=== PATIENT | female | born 1965 | race Caucasian/White ===

== ENCOUNTER 2017-03-20 20:57 | Inpatient (IN) | payer OTHER ==
[~2017-03-20] VITALS: Ht 157.5 cm; Wt 64.0 kg
[~2017-03-20 20:57] MED LIST: LANTUS SUBQ; LYR50 PO
--- NOTE | 2017-03-20 21:00 | NUR ---
PT MELANIE BLS. TAKEN TO BED 7
[2017-03-20 21:02] VITALS: BP 155/88
[2017-03-20] MEDS ORDERED: NACL 0.9% 1,000 ML IV SCH (21:11)
[2017-03-20] MEDS ORDERED: MORPHINE SULFATE 4 MG/ML SYR IVP ONE (21:15)
[2017-03-20] MEDS ORDERED: METOCLOPRAMIDE 10 MG/2 ML INJ VIAL IVP ONE (21:15)
--- NOTE | 2017-03-20 21:16 | NUR ---
PT IS 51/F BIBA C/O N/V x4 DAYS. PAIN 9/10 EPIGASTRIC AREA NON-RADIATING. PT STATES MED HX OF DM, FIRBOMYLAGIA AND NEUROPATHY. DENIES D; SKIN IS PINK/WARM/DRY; AAOX4 WITH EVEN AND STEADY GAIT; LUNGS CLEAR BL; HR EVEN AND REGULAR; PT DENIES ANY FEVER, CP, SOB, OR COUGH AT THIS TIME; VSS; PATIENT POSITIONED FOR COMFORT; HOB ELEVATED; BEDRAILS UP X2; BED DOWN. ER MD MADE AWARE OF PT STATUS.
[2017-03-20 22:01] LABS: ANION GAP 19.1 (8-16); CALCIUM 8.5 mg/dL (8.5-10.1); CARBON DIOXIDE 20.9 mmol/L (21-32); CREATININE 1.1 mg/dL (0.6-1.3)
[2017-03-20 22:07] LABS: ALBUMIN 2.7 g/dL (3.4-5.0); TOTAL BILIRUBIN 0.4 mg/dL (0.0-1.0); TOTAL PROTEIN, SERUM 7.3 g/dL (6.4-8.2)
[2017-03-20 22:15] LABS: BASOPHILS # (AUTO) 0.1 K/uL (0.00-0.22); BASOPHILS % (AUTO) 0.8 % (0.0-2.0); CREATINE KINASE MB 0.9 ng/mL (0-3.6); EOSINOPHILS # (AUTO) 0.2 K/uL (0-0.4); HEMATOCRIT 48.2 % (36-48); HEMOGLOBIN 14.7 g/dL (12.0-16.0); LYMPHOCYTES # (AUTO) 1.4 K/uL (2.5-16.5); LYMPHOCYTES % (AUTO) 11.8 % (20.5-51.1); MEAN CORPUSCULAR HEMOGLOBIN 24 pg (27-31); MEAN CORPUSCULAR HGB CONC 31 g/dL (33-37); MEAN CORPUSCULAR VOLUME 77 fL (80-94); MONOCYTES # (AUTO) 0.6 K/uL (0.8-1.0); MONOCYTES % (AUTO) 5.5 % (1.7-9.3); NEUTROPHILS # (AUTO) 9.4 K/uL (1.8-7.7); NEUTROPHILS % (AUTO) 79.9 % (42.2-75.2); PLATELET COUNT (AUTO) 318 K/uL (140-450); RED BLOOD CELL COUNT(AUTO) 6.25 MIL/uL (4.20-5.40); RED CELL DISTRIBUTION WIDTH 13.4 % (11.6-13.7); WHITE BLOOD COUNT (AUTO) 11.7 K/uL (4.8-10.8)
[2017-03-20] MEDS ORDERED: INSU100S22 SUBQ (22:39)
[2017-03-20] MEDS ORDERED: HUM SUBQ (22:41)
[2017-03-20] MEDS ORDERED: DULO20EC PO (22:42)
[2017-03-20] MEDS ORDERED: ASPIRIN 81 MG TAB.CHEW PO ONE (22:55)
--- NOTE | 2017-03-20 23:09 | NUR ---
PT RESTING IN BED. NO SOB NOTED AT THIS TIME
--- NOTE | 2017-03-20 23:22 | NUR ---
PT TAKEN OFF UNIT TO CT VIA WHEELCHAIR
--- NOTE | 2017-03-20 23:33 | NUR ---
PT RETURN FROM CT
[2017-03-20] MEDS ORDERED: MORPHINE SULFATE 2 MG/ML SYR IVP PRN (23:40)
[2017-03-20] MEDS ORDERED: ACETAMINOPHEN 325 MG TAB PO PRN (23:40)
[2017-03-20] MEDS ORDERED: ONDANSETRON 4 MG/2 ML VIAL IVP PRN (23:40)
[2017-03-20 23:54] LABS: APPEARANCE,URINE HAZY (CLEAR); BLOOD, URINE 2+ (NEGATIVE); COLOR,URINE YELLOW (YELLOW); NITRITE, URINE NEGATIVE (NEGATIVE); PROTEIN,URINE 3+ (NEGATIVE); UGLUCOSE 3+ (NEGATIVE); UROBILINOGEN,URINE 0.2 EU/dL (0.2 - 1)
[2017-03-21 00:03] LABS: BILIRUBIN,URINE NEGATIVE (NEGATIVE)
[2017-03-21 00:04] LABS: LEUKOCYTE ESTERASE ,URINE TRACE (NEGATIVE)
[2017-03-21 00:06] LABS: WBC,URINE 60-80 /HPF (0-5)
[2017-03-21 00:07] LABS: BACTERIA,URINE 2+ /HPF (None Seen)
--- NOTE | 2017-03-21 00:20 | NUR ---
ADMITTED 51 YEAR OLD FEMALE FROM ER, PT ARRIVED TO UNIT VIA GURNEY. INITIAL ASSESSMENT COMPLETED. PT AAOX4. PT STABLE. PT VS STABLE. PT'S SKIN IS INTACT. PT HAS IV ON LEFT AC G 20; ASYMPTOMATIC, PATENT AND INTACT. PT AMBULATES. ORIENTED PT TO ROOM AND SURROUNDINGS AND USE OF CALL LIGHT. EXPLAINED PLAN OF CARE TO PT AND SHE VERBALIZES UNDERSTANDING. WILL CONTINUE TO MONITOR PT.
--- NOTE | 2017-03-21 00:25 | NUR ---
Patient will be admitted to care of DR CHAMBERS. Admited to TELE. Will go to room 108B. Belongings list completed. Report to RADHA AKHTAR.
--- NOTE | 2017-03-21 00:44 | NUR ---
PT COMPLAINING OF ABDOMEN PAIN06/18. VS STABLE, WILL MEDICATE ORDERED.
[2017-03-21] MEDS: NACL 0.9% 1,000 ML IV SCH ×3 (00:47→19:39)
[2017-03-21] MEDS: INSULIN LISPRO SLIDING SCALE 100 UNITS/ML VIAL SUBQ PRN ×3 (01:36→17:20)
--- NOTE | 2017-03-21 01:40 | NUR ---
PT'S BLOOD SUGAR IS 320. PT WAS CONCERNED THAT INSULIN WOULD INTERFERE WITH THE IV CONTRAST SHE HAD IN ER WITH CT. CALLED DR. ELZBIETA Gallegos AND STATED THAT IT IS OK TO GIVE INSULIN THAT PT NEEDS IT. PT AWARE, PT AGREES TO TAKE INSULIN. KEENA NG. WILL CONTINUE TO MONITOR PT.
--- NOTE | 2017-03-21 02:00 | NUR ---
PT HAS AN ORDER FOR SCDS; I ASKED REPAIRER FOR SCDS BUT HE STATED THAT THERE ARE NOT MORE SCDS AVAILABLE.
--- NOTE | 2017-03-21 03:36 | NUR ---
PT SLEEPING AT THIS TIME, NO SIGNS OF DISTRESS NOTED. WILL CONTINUE TO MONITOR PT.
[2017-03-21 04:00] VITALS: BP 132/84
--- NOTE | 2017-03-21 05:23 | NUR ---
RESTAURANT AREA MANAGER AT BEDSIDE DRAWING MORNING LABS. WILL CONTINUE TO MONITOR PT.
[2017-03-21 06:13] LABS: BASOPHILS # (AUTO) 0.1 K/uL (0.00-0.22); BASOPHILS % (AUTO) 0.8 % (0.0-2.0); EOSINOPHILS # (AUTO) 0.2 K/uL (0-0.4); EOSINOPHILS % (AUTO) 1.8 % (0.0-4.0); HEMATOCRIT 42.2 % (36-48); HEMOGLOBIN 13.7 g/dL (12.0-16.0); LYMPHOCYTES # (AUTO) 1.5 K/uL (2.5-16.5); LYMPHOCYTES % (AUTO) 14.3 % (20.5-51.1); MEAN CORPUSCULAR HEMOGLOBIN 25 pg (27-31); MEAN CORPUSCULAR HGB CONC 32 g/dL (33-37); MEAN CORPUSCULAR VOLUME 77 fL (80-94); MONOCYTES % (AUTO) 9.4 % (1.7-9.3); NEUTROPHILS # (AUTO) 7.6 K/uL (1.8-7.7); NEUTROPHILS % (AUTO) 73.7 % (42.2-75.2); PLATELET COUNT (AUTO) 250 K/uL (140-450); RED BLOOD CELL COUNT(AUTO) 5.48 MIL/uL (4.20-5.40); RED CELL DISTRIBUTION WIDTH 13.5 % (11.6-13.7); WHITE BLOOD COUNT (AUTO) 10.4 K/uL (4.8-10.8)
[2017-03-21] MEDS: BLOOD GLUCOSE MONITORING 1 DEV DEV FS SCH ×4 (06:19→17:32)
[2017-03-21 06:47] LABS: ALBUMIN 2.3 g/dL (3.4-5.0); CALCIUM 7.9 mg/dL (8.5-10.1); CARBON DIOXIDE 22.6 mmol/L (21-32); POTASSIUM 4.6 mmol/L (3.5-5.1); TOTAL BILIRUBIN 0.7 mg/dL (0.0-1.0); TOTAL PROTEIN, SERUM 6.2 g/dL (6.4-8.2)
[2017-03-21 06:51] LABS: CREATINE KINASE MB 0.8 ng/mL (0-3.6)
--- NOTE | 2017-03-21 07:21 | NUR ---
ENDORSED PLAN OF CARE TO DAY SHIFT NURSE. PT IN STABLE CONDITION.
--- NOTE | 2017-03-21 07:21 | NUR ---
RECEIVED REPORT FROM NIGHT NURSE. PT IS AAOX4, ON ROOM AIR, IV TO LEFT AC 20G INFUSING WELL. SKIN INTACT, PT STATES NO CHEST PAIN AT THIS TIME. INITIAL ASSESSMENT COMPLETED. REVIEWED PLAN OF CARE WITH PT, PT VERBALIZED UNDERSTANDING. ALL SAFETY PRECAUTION MET. CALL LIGHT WITHIN REACH. WILL CONTINUE TO MONITOR.
[2017-03-21 07:54] VITALS: BP 140/69
[2017-03-21] MEDS ORDERED: DULOXETINE HCL PO SCH (09:00)
[2017-03-21] MEDS ORDERED: PREGABALIN 50 MG CAP PO SCH (09:00)
[2017-03-21] MEDS: ASPIRIN 81 MG TAB.CHEW PO SCH (09:10)
[2017-03-21] MEDS: ENOXAPARIN 40 MG/0.4 ML SYR SUBQ SCH (09:13)
[2017-03-21] MEDS ORDERED: PREGABALIN 25 MG CAP PO SCH (09:16)
[2017-03-21] MEDS ORDERED: DULoxetine 30 MG CAPDR PO SCH (09:30)
--- NOTE | 2017-03-21 09:45 | NUR ---
CHECKED IN ON PT, ALL NEEDS MET. CALL LIGHT WITHIN REACH. WILL CONTINUE TO MONITOR.
[2017-03-21] MEDS ORDERED: ALUMINUM HYD/MAG/SIMETHICONE 30 ML UDC PO PRN (10:00)
[2017-03-21] MEDS ORDERED: ALUMINUM HYD/MAG/SIMETHICONE 30 ML UDC PO SCH (10:15)
[2017-03-21] MEDS: METOCLOPRAMIDE 10 MG TAB PO SCH ×2 (10:53→17:16)
[2017-03-21] MEDS: PREGABALIN 50 MG CAP PO SCH ×2 (12:30→17:17)
[2017-03-21] MEDS: metroNIDAZOLE 500 MG/NS PREMIX 100 ML IV SCH ×2 (12:30→20:43)
--- NOTE | 2017-03-21 12:33 | NUR ---
DUE MEDICATIONS GIVEN. INSULIN NOT GIVEN, PT CURRENTLY NPO FOR PROCEDURE. WILL CONTINUE YO MONITOR.
[2017-03-21 15:07] LABS: CREATINE KINASE MB 1.2 ng/mL (0-3.6)
--- NOTE | 2017-03-21 15:10 | NUR ---
CHECKED IN ON PT, PT CURRENTLY RESTING IN BED. ALL NEEDS MET. CALL LIGHT WITHIN REACH. WILL CONTINUE TO MONITOR.
[2017-03-21 16:00] VITALS: BP 143/80
--- NOTE | 2017-03-21 17:20 | NUR ---
DUE MEDICATIONS GIVEN. PT CURRENTLY SITTING ON CHAIR AT BEDSIDE. NO S/S OF DISTRESS OR DISCOMFORT NOTED. ALL NEEDS MET. CALL LIGHT WITHIN REACH. WILL CONTINUE TO MONITOR.
--- NOTE | 2017-03-21 19:05 | NUR ---
RECEIVED REPORT FROM RADHA DIANA AT BEDSIDE. INITIAL ASSESSMENT COMPLETED. PT AAOX4. PT STABLE. PT VS STABLE. PT'S SKIN IS INTACT. PT HAS IV ON RIGHT AC G 20; ASYMPTOMATIC, PATENT AND INTACT. PT AMBULATES. ORIENTED PT TO ROOM AND SURROUNDINGS AND USE OF CALL LIGHT. EXPLAINED PLAN OF CARE TO PT AND SHE VERBALIZES UNDERSTANDING. WILL CONTINUE TO MONITOR PT.
--- NOTE | 2017-03-21 19:15 | NUR ---
ENDORSED PLAN OF CARE TO NIGHT NURSE, PT IN STABLE CONDITION
--- NOTE | 2017-03-21 20:47 | NUR ---
PT TOLERATED 2100 MEDS WELL, CALL LIGHT WITHIN REACH.
[2017-03-21] MEDS ORDERED: INSULIN DETEMIR 100 UNITS/ML 10 ML VIAL SUBQ SCH (21:00)
--- NOTE | 2017-03-21 22:25 | NUR ---
PT AMBULATED TO THE RESTROOM. PT BACK IN BED NOW. PT IS STABLE, CALL LIGHT WITHIN REACH.
[2017-03-22] VITALS: BP 133/92
[2017-03-22] MEDS: INSULIN LISPRO SLIDING SCALE 100 UNITS/ML VIAL SUBQ PRN ×2 (00:15→11:18)
[2017-03-22] MEDS: BLOOD GLUCOSE MONITORING 1 DEV DEV FS SCH ×3 (00:15→11:33)
--- NOTE | 2017-03-22 00:33 | NUR ---
CHECKED ON PT. VS STABLE, WILL CONTINUE TO MONITOR PT.
[2017-03-22] MEDS: NACL 0.9% 1,000 ML IV SCH (02:03)
--- NOTE | 2017-03-22 02:46 | NUR ---
ROUNDS MADE. PT SLEEPING. NO SIGNS OF DISTRESS OR DISCOMFORT NOTED. WILL CONTINUE TO MONITOR PT.
[2017-03-22] MEDS: metroNIDAZOLE 500 MG/NS PREMIX 100 ML IV SCH ×2 (04:30→12:45)
--- NOTE | 2017-03-22 04:40 | NUR ---
0500 FLAGYL INFUSING AT THIS TIME. PT STABLE, WILL CONTINUE TO MONITOR PT.
[2017-03-22] MEDS: METOCLOPRAMIDE 10 MG TAB PO SCH ×2 (06:26→11:18)
[2017-03-22 06:32] LABS: BASOPHILS # (AUTO) 0.1 K/uL (0.00-0.22); BASOPHILS % (AUTO) 0.7 % (0.0-2.0); EOSINOPHILS # (AUTO) 0.3 K/uL (0-0.4); EOSINOPHILS % (AUTO) 3.1 % (0.0-4.0); HEMATOCRIT 38.8 % (36-48); HEMOGLOBIN 12.6 g/dL (12.0-16.0); LYMPHOCYTES # (AUTO) 2.4 K/uL (2.5-16.5); LYMPHOCYTES % (AUTO) 25.5 % (20.5-51.1); MEAN CORPUSCULAR HEMOGLOBIN 25 pg (27-31); MEAN CORPUSCULAR HGB CONC 33 g/dL (33-37); MEAN CORPUSCULAR VOLUME 76 fL (80-94); MONOCYTES % (AUTO) 10.8 % (1.7-9.3); NEUTROPHILS # (AUTO) 5.8 K/uL (1.8-7.7); NEUTROPHILS % (AUTO) 59.9 % (42.2-75.2); PLATELET COUNT (AUTO) 254 K/uL (140-450); RED BLOOD CELL COUNT(AUTO) 5.11 MIL/uL (4.20-5.40); RED CELL DISTRIBUTION WIDTH 13.7 % (11.6-13.7); WHITE BLOOD COUNT (AUTO) 9.6 K/uL (4.8-10.8)
--- NOTE | 2017-03-22 06:58 | NUR ---
PATIENT HAS BEEN SCREENED AND CATEGORIZED HIGH NUTRITION RISK. PATIENT WILL BE SEEN WITHIN 1-2 DAYS OF ADMISSION. 03/21/17-03/22/17 NATANAEL SADLER MS, RDN
--- NOTE | 2017-03-22 07:15 | NUR ---
ENDORSED PLAN OF CARE TO DAY SHIFT NURSE. PT REMAINS IN STABLE CONDITION.
--- NOTE | 2017-03-22 07:16 | NUR ---
RECEIVED REPORT FROM QUALITY TECHNICIAN NURSE AT BEDSIDE. INTRODUCED MYSELF AND UPDATED THE BOARD. EXPLAIN TO PT PLAN OF CARE AND WILL UPDATE PT. PT IS ALERT AWAKE AND ORIENTED. PT DENIES CHEST PAIN, STATES SHE IS FEELING MUCH BETTER. PT HAS IV ON R AC 20G RUNNING NS 100ML/HR. CALL LIGHT WITHIN REACH. WILL CONTINUE TO MONITOR.
[2017-03-22 08:00] VITALS: BP 145/85
[2017-03-22 08:24] LABS: ALBUMIN 2.2 g/dL (3.4-5.0); ANION GAP 13.7 (8-16); CALCIUM 8.1 mg/dL (8.5-10.1); CARBON DIOXIDE 23.1 mmol/L (21-32); CREATININE 0.9 mg/dL (0.6-1.3); POTASSIUM 3.8 mmol/L (3.5-5.1); TOTAL BILIRUBIN 0.2 mg/dL (0.0-1.0)
[2017-03-22] MEDS: ENOXAPARIN 40 MG/0.4 ML SYR SUBQ SCH (08:59)
[2017-03-22] MEDS: ASPIRIN 81 MG TAB.CHEW PO SCH (08:59)
[2017-03-22] MEDS: PREGABALIN 50 MG CAP PO SCH ×2 (09:00→12:45)
[2017-03-22] MEDS ORDERED: PANTOPRAZOLE 40 MG INJ VIAL IVP SCH (09:00)
[2017-03-22] MEDS ORDERED: DULoxetine 30 MG CAPDR PO SCH (09:00)
--- NOTE | 2017-03-22 09:05 | NUR ---
MORNING MED ADMINISTERED. PT TOLERATED WELL. NO COMPLAINTS AT THIS TIME. WILL CONTINUE TO MONITOR.
--- NOTE | 2017-03-22 10:20 | NUR ---
PT IS RESTING COMFORTABLY IN BED. NO DISTRESS OR COMPLAINTS AT THIS TIME. WILL CONTINUE TO MONITOR.
--- NOTE | 2017-03-22 10:23 | NUR ---
03/25/17 RD INITIAL ASSESSMENT COMPLETED PLEASE REFER TO NUTRITION ASSESSMENT UNDER CARE ACTIVITY FOR ESTIMATED NUTRITIONAL NEEDS. RD RECOMMENDATIONS: CONTINUE ON CURRENT DIET TOLERATED. 2. RDN PROVIDED DM DIET EDUCATION WITH HANDOUT. PT ACCEPTS. 3. RD WILL F/U 5-7 DAYS; LOW RISK. NATANAEL SADLER MS, RDN
--- NOTE | 2017-03-22 12:30 | NUR ---
ADMINISTERED 1300 MEDICATIONS. PT TOLERATED WELL. INFORMED PT DR WILL BE IN SOON TO CHECK ON HER.
[2017-03-22] MEDS ORDERED: LEVO500T22 PO (13:50)
[2017-03-22] MEDS ORDERED: HUM SUBQ (13:50)
[2017-03-22] MEDS ORDERED: METO-485 PO (13:50)
[2017-03-22 13:57] VITALS: BP 145/85
--- NOTE | 2017-03-22 14:20 | NUR ---
WENT OVER PAPERWORK WITH PT AT BEDSIDE. PT VERBALIZED UNDERSTANDING AND SIGNED APPROPRIATE PAPERWORK. PRESCRIPTIONS GIVEN. ALL ID BAND CUT OFF. IV REMOVED, CANNULA INTACT, PT TOLERATED WELL. WILL ACCOMPANY PT OUT WHEN PT IS READY.
--- NOTE | 2017-03-22 14:30 | NUR ---
PT TOOK ALL BELONGINGS AND WAS D/C'ED. NURSE ACCOMPANIED PT TO THE CAR. PT IS IN STABLE CONDITION.
--- NOTE | 2017-03-23 08:08 | NUR ---
RETRO ER REPORT H&P AND DISCHARGE SUMMARY FAXED TO [facility] [phone] PHONE DIVINE [phone] APRIL [phone]
[2017-03-24 06:15] LABS: AFP (TUMOR MARKER) 2.1 ng/mL (0.0-8.3); HEPATITIS A ANTIBODY IGM Negative (Negative); HEPATITIS A ANTIBODY TOTAL Negative (Negative); HEPATITIS B CORE AB TOTAL Negative (Negative); HEPATITIS B CORE, IGM Negative (Negative); HEPATITIS B SURFACE AB Non Reactive (.); HEPATITIS B SURFACE ANTIGEN Negative (Negative); HEPATITIS C VIRUS ANTIBODY <0.1 s/co ratio (0.0-0.9)
== END 2017-03-22 14:30 | disposition home or self-care (01) | DRG 463 ==
LOC: MED 20:57 → MTU 23:46
PROVIDERS: ADMIT Hospitalist; ATTEND Hospitalist
DX: N39.0 Urinary tract infection, site not specified (principal); K56.69 Other intestinal obstruction; E11.42 Type 2 diabetes mellitus with diabetic polyneuropathy; E11.65 Type 2 diabetes mellitus with hyperglycemia; K76.0 Fatty (change of) liver, not elsewhere classified; B96.89 Other specified bacterial agents as the cause of diseases classified elsewhere; E44.1 Mild protein-calorie malnutrition; I10 Essential (primary) hypertension; F33.9 Major depressive disorder, recurrent, unspecified; M79.7 Fibromyalgia; K59.09 Other constipation; F17.210 Nicotine dependence, cigarettes, uncomplicated; Z90.49 Acquired absence of other specified parts of digestive tract; Z79.899 Other long term (current) drug therapy; Z79.4 Long term (current) use of insulin; Z68.25 Body mass index [BMI] 25.0-25.9, adult
CPT/HCPCS: 36415; 71010; 74250; 76700; 80053; 81001; 82105; 82550; 82553; 82948; 83036; 83690; 84484; 84703; 85025; 86704; 86706; 86708; 86709; 86803; 87081; 87086; 87186; 87340; 93005; 96361; 96374; 96375; 99285; C9113; J1650; J1815; J2270; J2765; J3490; J7030; J7060; J8597; Q0092; Q9967

== ENCOUNTER 2017-04-17 16:22 | Emergency (ER) | payer OTHER ==
[~2017-04-17] VITALS: Ht 160 cm; Wt 64.9 kg
[~2017-04-17 16:22] MED LIST changes: +DULO20EC PO; +HUM SUBQ; +INSU100S22 SUBQ; -LANTUS SUBQ; +LEVO500T22 PO; +METO-485 PO
[2017-04-17 16:26] VITALS: BP 159/87
--- NOTE | 2017-04-17 18:33 | NUR ---
PATIENT TO BED 3.
--- NOTE | 2017-04-17 18:34 | NUR ---
PATIENT PRESENTS TO ED WITH RIGHT WRIST PAIN X 1 MONTH----SWELLING, HX----FIBROMYALGIA, NEUROPATHY, DM, HTN RX---HUMALOG, METFORMIN, BENAZEPRIL, ZYMBALTA . PT AAO, DENIES N/V/D; SKIN IS PINK/WARM/DRY; AAOX4 WITH EVEN AND STEADY GAIT; LUNGS CLEAR BL; HR EVEN AND REGULAR; PT DENIES ANY FEVER, CP, SOB, OR COUGH AT THIS TIME; PATIENT STATES PAIN OF 7/10 AT THIS TIME; PATIENT POSITIONED FOR COMFORT; HOB ELEVATED; BEDRAILS UP X2; BED DOWN. ER MD MADE AWARE OF PT STATUS.
--- NOTE | 2017-04-17 18:43 | NUR ---
PT AAO,WILL INFORM DR. PIERCE RESULT OF HIGH BLOOD SUGAR
--- NOTE | 2017-04-17 18:46 | NUR ---
PER PT SHE DOESNT WANT TO RECEIVE ANYTHING FOR HER BS CLAIMED I WILL TAKE CARE OF THAT WHEN I GO HOME.
--- NOTE | 2017-04-17 19:06 | NUR ---
DR. TROTTER AT BEDSIDE
--- NOTE | 2017-04-17 19:13 | NUR ---
Pt report given to PIN. Transfer of care at this time.
--- NOTE | 2017-04-17 19:17 | NUR ---
GOT REPORT FROM RADHA DAVALOS. PT. RESTING IN BED, NO S/SX OF DISTRESS.
[2017-04-17] MEDS ORDERED: NACL 0.9% 1,000 ML IV ONE (19:20)
[2017-04-17] MEDS ORDERED: KETOROLAC 30 MG/ML VIAL IVP ONE (19:35)
[2017-04-17] MEDS ORDERED: INSULIN HUMAN REGULAR 100 UNITS/ML 10 ML VIAL IVP ONE (19:50)
[2017-04-17 20:15] LABS: CALCIUM 8.8 mg/dL (8.5-10.1); CARBON DIOXIDE 28.3 mmol/L (21-32); POTASSIUM 4.3 mmol/L (3.5-5.1)
--- NOTE | 2017-04-17 20:30 | NUR ---
Patient discharged with v/s stable. Written and verbal after care instructions given and explained. Patient alert, oriented and verbalized understanding of instructions. Ambulatory with steady gait. All questions addressed prior to discharge. ID band removed. Patient advised to follow up with PMD. Rx of NAPROSYN 500 MG, NORCO 5/325 MG given. Patient educated on indication of medication including possible reaction and side effects. Opportunity to ask questions provided and answered. LT. WRIST SPLINT APPLIED.
[2017-04-17 20:33] VITALS: BP 125/79
== END 2017-04-17 20:30 | disposition home or self-care (01) ==
LOC: MED 16:22
DX: M77.9 Enthesopathy, unspecified (principal); E11.65 Type 2 diabetes mellitus with hyperglycemia; J45.909 Unspecified asthma, uncomplicated; M79.7 Fibromyalgia; Z90.49 Acquired absence of other specified parts of digestive tract
CPT/HCPCS: 29125; 36415; 73110; 80048; 81002; 81025; 82948; 96361; 96372; 96374; 99285; J1815; J1885; J7030

== ENCOUNTER 2018-04-29 21:48 | Emergency (ER) | payer MEDICAID, OTHER ==
[~2018-04-29] VITALS: Ht 157.5 cm; Wt 74.8 kg
[~2018-04-29 21:48] MED LIST changes: +LEVO500T2 PO; -LEVO500T22 PO
[2018-04-29 21:56] VITALS: BP 165/95
[2018-04-29 22:00] VITALS: BP 165/95
--- NOTE | 2018-04-29 22:00 | NUR ---
TO LOBBY A/W BED, AMB, VSS , SAO2 100% ERMD NOTED
--- NOTE | 2018-04-30 00:01 | NUR ---
PATIENT LEFT WITHOUT BEING SEEN BY DR. OTOOLE. NO FURTHER CARE PROVIDED FOR PATIENT.
== END 2018-04-30 00:01 | disposition left against medical advice (07) ==
LOC: MED 21:48
DX: R06.02 Shortness of breath (principal); Z53.21 Procedure and treatment not carried out due to patient leaving prior to being seen by health care provider

== ENCOUNTER 2019-01-21 23:37 | Inpatient (IN) | payer MEDICAID ==
[~2019-01-21] VITALS: Ht 157.5 cm; Wt 70.3 kg
[2019-01-21 23:50] VITALS: BP 182/80
--- NOTE | 2019-01-21 23:54 | NUR ---
[facility] V[facility]. PROVIDED PT WITH URINE CUP.
--- NOTE | 2019-01-22 00:41 | NUR ---
PT AMUBLATED TO ER BED 04
[2019-01-22 00:50] LABS: BASOPHILS # (AUTO) 0.1 K/uL (0.00-0.22); BASOPHILS % (AUTO) 0.8 % (0.0-2.0); EOSINOPHILS # (AUTO) 0.3 K/uL (0-0.4); EOSINOPHILS % (AUTO) 3.6 % (0.0-4.0); HEMATOCRIT 35.6 % (36-48); HEMOGLOBIN 11.9 g/dL (12.0-16.0); LYMPHOCYTES # (AUTO) 1.5 K/uL (2.5-16.5); LYMPHOCYTES % (AUTO) 17.9 % (20.5-51.1); MEAN CORPUSCULAR HEMOGLOBIN 27 pg (27-31); MEAN CORPUSCULAR HGB CONC 33 g/dL (33-37); MEAN CORPUSCULAR VOLUME 80.4 fL (80-94); MONOCYTES # (AUTO) 0.5 K/uL (0.8-1.0); MONOCYTES % (AUTO) 5.4 % (1.7-9.3); NEUTROPHILS % (AUTO) 72.3 % (42.2-75.2); PLATELET COUNT (AUTO) 263 K/uL (140-450); RED BLOOD CELL COUNT(AUTO) 4.43 MIL/uL (4.20-5.40); RED CELL DISTRIBUTION WIDTH 13.6 % (11.6-13.7); WHITE BLOOD COUNT (AUTO) 8.3 K/uL (4.8-10.8)
[2019-01-22 01:02] LABS: ANION GAP 10.2 (8-16); CARBON DIOXIDE 27.3 mmol/L (21-32); CREATININE 1.4 mg/dL (0.6-1.3); POTASSIUM 3.5 mmol/L (3.5-5.1)
--- NOTE | 2019-01-22 01:06 | NUR ---
ASSUMED CARE OF PT AT THIS TIME. 53/F PRESENTS TO ED, C/O SOB/DIFFICULTY BREATHING X1 MONTH, WORSENING X1 WEEK. REPORTS NONPRODUCTIVE COUGH, INSOMNIA, HEADACHE. PT DENIES CP OR FEVER. PT AOX4, GCS 15, SPO2 100%, RR 20 EVEN AND SLIGHTLY LABORED. LUNG SOUNDS CLEAR BL. HX CHF, HTN, DM, FIBROMYALGIA RX ALBUTEROL INHALER, LASIX, GABAPENTIN, BASGLAR PEN, SIMVASTATIN, VIT D, LOSARTAN, IBUPROFEN
[2019-01-22 01:07] LABS: TOTAL BILIRUBIN 0.4 mg/dL (0.0-1.0)
[2019-01-22] MEDS ORDERED: FUROSEMIDE 40 MG/4 ML VIAL IVP ONE ×2 (01:25→02:10)
[2019-01-22] MEDS ORDERED: HYDROcodone/APAP 7.5/325 MG 1 TAB PO PRN (01:40)
[2019-01-22] MEDS ORDERED: ACETAMINOPHEN 325 MG TAB PO PRN (01:40)
[2019-01-22] MEDS ORDERED: MORPHINE SULFATE 2 MG/ML SYR IVP PRN (01:40)
[2019-01-22] MEDS ORDERED: DOCUSATE SODIUM 100 MG GELCAP PO PRN (01:40)
[2019-01-22 02:06] LABS: APPEARANCE,URINE CLEAR (CLEAR); BILIRUBIN,URINE NEGATIVE (NEGATIVE); BLOOD, URINE 1+ (NEGATIVE); COLOR,URINE YELLOW (YELLOW); LEUKOCYTE ESTERASE ,URINE NEGATIVE (NEGATIVE); NITRITE, URINE NEGATIVE (NEGATIVE); PH,URINE 6.5 (5.0-9.0); UGLUCOSE 2+ (NEGATIVE)
[2019-01-22] MEDS ORDERED: PIPER/TAZO 3.375GM/D5W PREMIX 50 ML IV ONE (02:10)
[2019-01-22] MEDS ORDERED: SIMV20TA1 PO (02:15)
[2019-01-22] MEDS ORDERED: IBUP-2213 PO (02:15)
[2019-01-22] MEDS ORDERED: INSU100I7 SQ (02:15)
[2019-01-22] MEDS ORDERED: GABA300C PO (02:15)
[2019-01-22] MEDS ORDERED: FURO-570 PO (02:15)
[2019-01-22] MEDS ORDERED: VITD1000 PO (02:15)
[2019-01-22] MEDS ORDERED: LOSA25TA43 PO (02:15)
[2019-01-22 02:16] LABS: BARBITURATE, URINE NEG. ng/ml (NEG <=200); BENZODIAZEPINE, URINE NEG. ng/mL (NEG <=200); CANNABINOID, URINE NEG. ng/mL (NEG <=50); COCAINE, URINE NEG. ng/mL (NEG <=300); OPIATE, URINE NEG. ng/mL (NEG <=2000); PHENCYCLIDINE SCREEN,URINE NEG. ng/mL (NEG <=25)
[2019-01-22] MEDS: NACL 0.9% 1,000 ML IV SCH (02:20)
--- NOTE | 2019-01-22 02:20 | NUR ---
Patient will be admitted to care of DR. HALL. Admited to TELE. Will go to room 119B. Belongings list completed. Report to RADHA MONTANEZ.
[2019-01-22 02:21] LABS: PROTHROMBIN TIME 9.5 secs (10.8-13.4)
[2019-01-22] MEDS ORDERED: PIPERACILLIN/TAZOBACTAM 3.375 GM VIAL IV ONE (02:21)
[2019-01-22] MEDS ORDERED: DEXTROSE 50% 50 ML SYR IVP PRN (02:25)
[2019-01-22 02:31] LABS: CHOL/HDL RATIO 4.2 (1-4.5); MAGNESIUM 1.9 mg/dL (1.8-2.4); PHOSPHORUS 3.1 mg/dL (2.5-4.9); THYROID STIMULATING HORMONE 1.12 uIU/mL (0.34-3.74)
--- NOTE | 2019-01-22 02:35 | NUR ---
RECEIVED ENDORSEMENT FROM DIRECTOR UTILIZATION MANAGEMENT; PATIENT ABLE TO AMBULATE FROM GURNEY TO BED. PATIENT A/Ox4, ABLE TO MAKE NEEDS KNOWN. INTRODUCED SELF, UPDATED BOARD. CHIEF COMPLAINT OF SOB FOR 1 MONTH. DX - CONGESTIVE HEART FAILURE. NO SOB OR DISTRESS NOTED. SKIN IS INTACT. IV SITE ON RIGHT FOREARM, 20 GAUGE, INTACT AND PATENT. BED IN THE LOWEST POSITION, CALL LIGHT WITHIN REACH. INITIAL ASSESSMENT DONE. PLAN OF CARE REVIEWED. WILL CONTINUE TO MONITOR.
[2019-01-22] MEDS ORDERED: MELATONIN 3 MG TAB PO PRN (02:40)
[2019-01-22] MEDS: ALBUTEROL SULFATE/IPRATROPIU 3 ML SOL IH PRN ×2 (03:22→08:25)
--- NOTE | 2019-01-22 03:34 | NUR ---
RECEIVED PATIENT ON ROOM AIR, PULSE OX SAT 96%. PATIENT COMPLAINS OF FEELING SOB. PRN TX ADMINISTERED. TOLERATED WELL. NO ADVERSE SIDE EFFECTS. WILL CONTINUE TO MONITOR.
[2019-01-22 04:00] VITALS: BP 174/90
[2019-01-22] MEDS ORDERED: hydrALAZINE 20 MG/ML VIAL IVP SCH (04:00)
--- NOTE | 2019-01-22 04:00 | NUR ---
DUE MEDS GIVEN, TOLERATED WELL.
[2019-01-22] MEDS ORDERED: AZITHROMYCIN 500 MG in DEXTROSE 5% 250 ML IV SCH (04:30)
--- NOTE | 2019-01-22 04:30 | NUR ---
VITALS TAKEN, NO DISTRESS NOTED.
[2019-01-22] MEDS ORDERED: AZITHROMYCIN 500 MG INJ VIAL IV ONE (04:45)
--- NOTE | 2019-01-22 06:30 | NUR ---
BLOOD GLUCOSE CHECK DONE, NO DISTRESS NOTED.
[2019-01-22] MEDS: ALBUTEROL SULFATE/IPRATROPIU 3 ML SOL IH SCH ×3 (06:40→19:43)
[2019-01-22] MEDS: BLOOD GLUCOSE MONITORING 1 DEV DEV FS SCH ×4 (06:57→21:28)
--- NOTE | 2019-01-22 07:15 | NUR ---
ENDORSED PATIENT TO AM SHIFT RN; PATIENT IN STABLE CONDITION.
--- NOTE | 2019-01-22 07:40 | NUR ---
RECEIVED REPORT FROM ARMOR RECONNAISSANCE VEHICLE CREWMAN NURSE. PT SITTING IN BED TRYING TO GET TO RESTROOM. ARMOR RECONNAISSANCE VEHICLE CREWMAN NURSE ASSISTED HER TO BATHROOM. PT REQUESTING BREATHING TREATMENT. COMPLAINTS OF DIFFICULTY BREATHING. ARMOR RECONNAISSANCE VEHICLE CREWMAN NURSE STATED HE WOULD CALL FOR RT.
[2019-01-22 08:00] VITALS: BP 123/69
--- NOTE | 2019-01-22 08:30 | NUR ---
RT CALLED TO BEDSIDE FOR NEB TREATMENT FOR SOB AND WZ, PT ALSO C/O ELAINE AND NAUSEA, WILL MEDICATE WITH TYLENOL AND ZOFRAN.
[2019-01-22] MEDS: FUROSEMIDE 40 MG/4 ML VIAL IVP SCH (08:39)
[2019-01-22] MEDS: ONDANSETRON 4 MG/2 ML VIAL IM/IVP PRN (08:40)
[2019-01-22] MEDS: metFORMIN 500 MG TAB PO SCH ×2 (08:48→17:02)
[2019-01-22] MEDS: LACTOBACILLUS RHAMNOSUS GG 1 EACH CAP PO SCH (08:48)
[2019-01-22] MEDS: LOSARTAN 25 MG TAB PO SCH (08:48)
[2019-01-22] MEDS: GABAPENTIN 300 MG CAP PO SCH ×2 (08:49→21:28)
[2019-01-22] MEDS: CHOLECALCIFEROL 1,000 IU TAB PO SCH (08:49)
[2019-01-22] MEDS: INSULIN LANTUS 100 UNITS/ML 10 ML VIAL SUBQ SCH (08:51)
[2019-01-22] MEDS ORDERED: FUROSEMIDE 40 MG/4 ML VIAL IVP SCH (09:00)
--- NOTE | 2019-01-22 09:43 | NUR ---
PT SITTING ON SIDE OF BED. PT COMPLAINING OF HEADACHE. PT STATED THAT NAUSEA HAS RESOLVED.
[2019-01-22 12:00] VITALS: BP 106/56
--- NOTE | 2019-01-22 12:05 | NUR ---
PT RESTING QUIETLY IN NAD, RESP EVEN UNLABORED, SKIN WARM DRY COLOR WNL, PT DENIES APIN OR DISCOMFORT, WILL CONTINUE TO MONIOTR, NO INSULIN NEEDED PER SLIDING SCALE.
--- NOTE | 2019-01-22 15:14 | NUR ---
PT SLEEPING IN BED. NO SIGNS OF DISTRESS. ALL SAFETY MEASURES IN PLACE.
[2019-01-22 16:00] VITALS: BP 109/55
--- NOTE | 2019-01-22 16:30 | NUR ---
PT IN BED. PT SIGNED CONSENT TO REQUEST MEDICAL RECORDS FROM [facility]. PT APPEARS IN NO DISTRESS. PT STATED WAITING FOR FAMILY MEMBERS TO BRING SOME PERSONAL BELONGINGS BEFORE TAKING A SHOWER.
--- NOTE | 2019-01-22 18:36 | NUR ---
PT ASSISTED TO THE SHOWER. SHOWER PER DR CHADWICK
--- NOTE | 2019-01-22 19:42 | NUR ---
PT RETURNED FROM SHOWER. RESTING IN BED. HAND OFF REPORT GIVEN AT PATIENT BEDSIDE WITH AUTO WRECKER NURSE.
--- NOTE | 2019-01-22 19:45 | NUR ---
RECEIVED PT IN STABLE CONDITION FROM AM NURSE. AWAKE,ALERT AND ORIENTED X4. AMBULATORY. ON TELE MONITOR. NO C/O ANY DISCOMFORT NOR PAIN AT THIS TIME. WITH IV ACCESS ON THE RT FA G#20. CLEAR AND PATENT. PLAN OF CARE DISCUSSED AND VERBALIZED UNDERSTANDING. BED ON LOW POSITION. SIDE RAILS UP X2. CALL LIGHT PLACED WITHIN EASY REACH. WILL CONTINUE TO MONITOR.
[2019-01-22 20:00] VITALS: BP_SYST 116; BP_SYST 155; BP_DIAS 63; BP_DIAS 76
[2019-01-22] MEDS: SIMVASTATIN 20 MG TAB PO SCH (21:28)
[2019-01-22] MEDS: INSULIN LISPRO SLIDING SCALE 100 UNITS/ML VIAL SUBQ PRN (21:31)
--- NOTE | 2019-01-22 21:31 | NUR ---
BLOOD SUGAR WAS CHECKED RESULT 163. INSULIN COVERAGE GIVEN SUBQ. PROVIDED WITH HS SNACK. WILL CONTINUE TO MONITOR.
--- NOTE | 2019-01-22 22:30 | NUR ---
MADE ROUNDS. PT ASLEEP. NO S/S OF ANY DISCOMFORT NOTED.
[2019-01-23] VITALS: BP 155/76
--- NOTE | 2019-01-23 01:00 | NUR ---
PT SLEEPING. NO S/S OF ANY PAIN NOR DISCOMFORT NOTED. WILL CONTINUE TO MONITOR.
[2019-01-23] MEDS: NACL 0.9% 1,000 ML IV SCH (01:37)
--- NOTE | 2019-01-23 02:00 | NUR ---
MADE ROUNDS. PT IS SLEEPING AND NO S/S OF ANY DISCOMFORT NOTED.
[2019-01-23 03:57] VITALS: BP 121/67
--- NOTE | 2019-01-23 04:00 | NUR ---
PT GOT UP TO BATHROOM. NO SOB NOTED. WILL CONTINUE TO MONITOR.
[2019-01-23] MEDS: BLOOD GLUCOSE MONITORING 1 DEV DEV FS SCH ×4 (06:09→20:48)
--- NOTE | 2019-01-23 06:09 | NUR ---
BLOOD SUGAR WAS CHECKED THIS AM RESULT 103. NO INSULIN NEEDED
[2019-01-23] MEDS: ALBUTEROL SULFATE/IPRATROPIU 3 ML SOL IH SCH ×3 (06:55→19:27)
[2019-01-23 07:11] LABS: BASOPHILS # (AUTO) 0.1 K/uL (0.00-0.22); BASOPHILS % (AUTO) 0.7 % (0.0-2.0); EOSINOPHILS # (AUTO) 0.4 K/uL (0-0.4); EOSINOPHILS % (AUTO) 4.9 % (0.0-4.0); HEMATOCRIT 30.5 % (36-48); HEMOGLOBIN 10.1 g/dL (12.0-16.0); LYMPHOCYTES # (AUTO) 1.9 K/uL (2.5-16.5); LYMPHOCYTES % (AUTO) 21.9 % (20.5-51.1); MEAN CORPUSCULAR HEMOGLOBIN 27 pg (27-31); MEAN CORPUSCULAR HGB CONC 33 g/dL (33-37); MEAN CORPUSCULAR VOLUME 81.1 fL (80-94); MONOCYTES # (AUTO) 0.7 K/uL (0.8-1.0); MONOCYTES % (AUTO) 7.9 % (1.7-9.3); NEUTROPHILS # (AUTO) 5.6 K/uL (1.8-7.7); NEUTROPHILS % (AUTO) 64.6 % (42.2-75.2); PLATELET COUNT (AUTO) 243 K/uL (140-450); RED BLOOD CELL COUNT(AUTO) 3.76 MIL/uL (4.20-5.40); RED CELL DISTRIBUTION WIDTH 13.6 % (11.6-13.7); WHITE BLOOD COUNT (AUTO) 8.6 K/uL (4.8-10.8)
[2019-01-23 07:28] LABS: ANION GAP 12.6 (8-16); CARBON DIOXIDE 25.9 mmol/L (21-32); POTASSIUM 3.5 mmol/L (3.5-5.1)
--- NOTE | 2019-01-23 07:28 | NUR ---
ENDORSED PT IN STABLE CONDITION TO AM NURSE.
--- NOTE | 2019-01-23 07:30 | NUR ---
REPORT RECEIVED FROM FINGERNAIL FORMER NURSE, PT AAOX4, RESP EVEN UNLABORED, SPEAKS CLEARLY IN FULL SENTENCES, PT STATES SHE FEELS MUCH BETTER THAN BEFORE, SHE FEELS SOB ONLY WHEN SHE AMBULATES TO BATHROOM, POC REVIEWED, ALL SAFETY MEASURES IN PLACE, WILL CONTINUE TO MONITOR.
[2019-01-23 07:39] LABS: MAGNESIUM 1.9 mg/dL (1.8-2.4); PHOSPHORUS 5.2 mg/dL (2.5-4.9)
[2019-01-23 08:00] VITALS: BP 137/77
[2019-01-23] MEDS: INSULIN LANTUS 100 UNITS/ML 10 ML VIAL SUBQ SCH (09:00)
--- NOTE | 2019-01-23 09:53 | NUR ---
PATIENT HAS BEEN SCREENED AND CATEGORIZED MODERATE NUTRITION RISK. PATIENT WILL BE SEEN WITHIN 3-5 DAYS OF ADMISSION. 01/24/19-01/26/[address]
[2019-01-23] MEDS ORDERED: HEPARIN PER PHARMACY MC PRN (10:00)
[2019-01-23] MEDS ORDERED: hePARIN / DEXT 5% PREMIX 250 ML IV SCH (10:00)
[2019-01-23] MEDS: FUROSEMIDE 40 MG/4 ML VIAL IVP SCH (10:03)
[2019-01-23] MEDS: CHOLECALCIFEROL 1,000 IU TAB PO SCH (10:04)
[2019-01-23] MEDS: GABAPENTIN 300 MG CAP PO SCH ×2 (10:04→20:42)
[2019-01-23] MEDS: LOSARTAN 25 MG TAB PO SCH (10:04)
[2019-01-23] MEDS: LACTOBACILLUS RHAMNOSUS GG 1 EACH CAP PO SCH (10:04)
[2019-01-23] MEDS: AZITHROMYCIN 500 MG in DEXTROSE 5% 250 ML IV SCH (10:05)
--- NOTE | 2019-01-23 11:15 | NUR ---
2ND IV STARTED TO LEFT AC 22G IN PREPARATION FOR HEPARIN DRIP, PT CHITRA WELL, WILL CONTINUE TO MONTIOR.
--- NOTE | 2019-01-23 11:40 | NUR ---
PT C/O NAUSEA, EMESIS X1, LEFT SIDE CHEST TIGHTNESS, SOB, VITALS TAKEN 147/81, 80, 22, 95% RA, 97.8, BLOOD SUGAR 348, DR LERNER NOTIFIED OF PT CONDITION, WILL ZOFRAN AND MORPHINE PER DR LERNER.
[2019-01-23] MEDS ORDERED: NITROGLYCERIN 0.4 MG TAB SL PRN (11:50)
[2019-01-23] MEDS ORDERED: MORPHINE SULFATE 2 MG/ML SYR IVP PRN (11:50)
[2019-01-23] MEDS: ONDANSETRON 4 MG/2 ML VIAL IM/IVP PRN (11:55)
[2019-01-23 12:00] VITALS: BP 147/81
[2019-01-23] MEDS ORDERED: METOPROLOL 25 MG TAB PO SCH (12:13)
[2019-01-23] MEDS: hePARIN / DEXT 5% PREMIX 250 ML IV SCH ×2 (12:14→20:02)
--- NOTE | 2019-01-23 12:15 | NUR ---
HEPARIN DRIP STARTED PER ORDER, PT EDUCATED ON SIDE EFFECTS, PT NOW TALKING SMILING IN NAD. RESP EVEN UNLABORED. WILL CONTINUE TO MONITOR.
[2019-01-23] MEDS: INSULIN LISPRO SLIDING SCALE 100 UNITS/ML VIAL SUBQ PRN ×3 (12:26→20:50)
[2019-01-23] MEDS: CALCIUM ACETATE 667 MG TAB PO SCH ×2 (12:27→18:00)
--- NOTE | 2019-01-23 14:14 | NUR ---
ROUNDED ON PT. NO COMPLAINTS OF PAIN. RADIOLOGY AT BEDSIDE PERFORMING ECHO.
[2019-01-23 16:00] VITALS: BP 133/72
--- NOTE | 2019-01-23 16:20 | NUR ---
ROUNDED ON PT. PT IN BED ON THE PHONE WITH DAUGHTER. PT IS HAPPY AND NO COMPLAINTS OF PAIN. CALL LIGHT WITHIN REACH
--- NOTE | 2019-01-23 18:00 | NUR ---
ROUNDED ON PT. AT PT BEDSIDE. NO SIGNS OF BLEEDING OR UNUSUAL BRUISING.
--- NOTE | 2019-01-23 18:30 | NUR ---
ROUNDED ON PT. LAB AT BEDSIDE TAKING BLOOD SAMPLE. PT AT BEDSIDE
--- NOTE | 2019-01-23 18:45 | NUR ---
ROUNDED ON PT. PTS DAUGHTER AT BEDSIDE. NO SIGNS OF DISTRESS.
--- NOTE | 2019-01-23 19:34 | NUR ---
Patient instructed on providing sputum sample. Unable to provide sample at this time. Cup at bedside within reach.
--- NOTE | 2019-01-23 19:41 | NUR ---
REPORT GIVEN TO AUDIO/VISUAL OPERATOR NURSE. PT IN BED PT APPEARED IN NO APPARENT DISTRESS
--- NOTE | 2019-01-23 19:42 | NUR ---
RECEIVED PT IN STABLE CONDITION FROM AM NURSE.AWAKE,ALERT AND ORIENTED X4. AMBULATORY. ON TELE MONITOR. DENIES ANY DISCOMFORT NOR PAIN NOTED AT THIS TIME. WITH HEPARIN DRIP INFUSING WELL ON THE LT AC G#22. PLAN OF CARE DISCUSSED AND VERBALIZED UNDERSTANDING. BED ON LOW POSITION. FREQUENT ROUNDS NEEDED. CALL LIGHT PLACED WITHIN EASY REACH. WILL CONTINUE TO MONITOR.
--- NOTE | 2019-01-23 19:59 | NUR ---
LATEST PTT RESULT 36.2 HEPARIN BOLUS 2,000 UNITS IVP GIVEN PER PROTOCOL AND WILL INCREASE THE RATE FROM HEPARIN 800 UNITS /HR BY 150 UNITS PER HOUR.
[2019-01-23 20:00] VITALS: BP 127/75
--- NOTE | 2019-01-23 20:01 | NUR ---
LAB CALLED FOR TROPONIN LEVEL OF 0.143 RESULT TRENDING DOWN.
[2019-01-23] MEDS: SIMVASTATIN 20 MG TAB PO SCH (20:42)
[2019-01-23] MEDS: METOPROLOL 25 MG TAB PO SCH (20:48)
--- NOTE | 2019-01-23 20:50 | NUR ---
BLOOD SUGAR WAS CHECKED RESULT 217. HUMALOG INSULIN COVERAGE 4 UNITS SUBQ GIVEN . HS SNACK PROVIDED. WILL CONTINUE TO MONITOR.
[2019-01-23] MEDS ORDERED: CALCIUM ACETATE 667 MG TAB PO SCH (21:00)
--- NOTE | 2019-01-23 21:38 | NUR ---
MADE ROUNDS. PT IS ASLEEP. NO DISTRESS NOTED.
--- NOTE | 2019-01-23 23:36 | NUR ---
RESULT OF MRSA NARES CAME BACK POSITIVE . MADE AWARE . WILL ORDER TREATMENTS AND CONTACT ISOLATION.
[2019-01-24] VITALS: BP 132/76
--- NOTE | 2019-01-24 00:15 | NUR ---
NEEDS ANOTHER IV ACCESS FOR ANTIBIOTICS. RADHA MONZONMENTAL HEALTH NURSE PRACTITIONER STARTED ANEW IV ACCESS ON THE LT HAND G#22. CLEAR AND PATENT.
[2019-01-24] MEDS: NACL 0.9% 1,000 ML IV SCH (01:37)
--- NOTE | 2019-01-24 01:50 | NUR ---
BLOOD JUST DRAWN FOR PTT. WILL FOLLOW UP RESULT.
[2019-01-24] MEDS: hePARIN / DEXT 5% PREMIX 250 ML IV SCH (03:32)
--- NOTE | 2019-01-24 03:32 | NUR ---
LATEST PTT 38.5 NO BLEEDING NOTED. PROTOCOL FOLLOWED WITH HEPARIN 2000 UNITS IVP BOLUS AND HEPARIN DRIP INCREASED BY 150 UNITS PER HOUR..WILL ORDER NEXT PTT AFTER 6 HOURS.
[2019-01-24 04:00] VITALS: BP 131/71
[2019-01-24] MEDS ORDERED: CHLORHEXADINE GLUC 2% CLOTH TP SCH ×2 (06:00→09:00)
[2019-01-24] MEDS ORDERED: MUPIROCIN CA NASAL 2% 1GM TUBE NS SCH ×2 (06:00→09:00)
[2019-01-24 06:22] LABS: ANION GAP 6.3 (8-16); CARBON DIOXIDE 27.4 mmol/L (21-32); POTASSIUM 3.7 mmol/L (3.5-5.1)
[2019-01-24] MEDS: BLOOD GLUCOSE MONITORING 1 DEV DEV FS SCH ×3 (06:28→16:49)
[2019-01-24] MEDS: INSULIN LISPRO SLIDING SCALE 100 UNITS/ML VIAL SUBQ PRN ×2 (06:30→12:13)
--- NOTE | 2019-01-24 06:30 | NUR ---
BLOOD SUGAR THIS AM 188. 2 UNITS HUMALOG GIVEN SUBQ.
[2019-01-24 06:35] LABS: BASOPHILS % (AUTO) 0.5 % (0.0-2.0); EOSINOPHILS # (AUTO) 0.5 K/uL (0-0.4); EOSINOPHILS % (AUTO) 5.9 % (0.0-4.0); HEMATOCRIT 28.7 % (36-48); HEMOGLOBIN 9.7 g/dL (12.0-16.0); LYMPHOCYTES % (AUTO) 21.8 % (20.5-51.1); MEAN CORPUSCULAR HEMOGLOBIN 27 pg (27-31); MEAN CORPUSCULAR HGB CONC 34 g/dL (33-37); MEAN CORPUSCULAR VOLUME 80.4 fL (80-94); MONOCYTES # (AUTO) 0.6 K/uL (0.8-1.0); MONOCYTES % (AUTO) 6.6 % (1.7-9.3); NEUTROPHILS % (AUTO) 65.2 % (42.2-75.2); PLATELET COUNT (AUTO) 213 K/uL (140-450); RED BLOOD CELL COUNT(AUTO) 3.58 MIL/uL (4.20-5.40); RED CELL DISTRIBUTION WIDTH 13.4 % (11.6-13.7); WHITE BLOOD COUNT (AUTO) 9.2 K/uL (4.8-10.8)
[2019-01-24] MEDS: ALBUTEROL SULFATE/IPRATROPIU 3 ML SOL IH SCH ×2 (07:07→13:00)
--- NOTE | 2019-01-24 07:20 | NUR ---
ENDORSED PT IN STABLE CONDITION TO AM NURSE.
[2019-01-24] MEDS ORDERED: CALCIUM ACETATE 667 MG TAB PO SCH (07:30)
--- NOTE | 2019-01-24 07:30 | NUR ---
RECEIVED HAND OFF REPORT FROM HOMEBOUND TEACHER NURSE. PT IN BED RESTING COMFORTABLY. ALL SAFETY MEASURES IN PLACE.
[2019-01-24 08:00] VITALS: BP 144/79
--- NOTE | 2019-01-24 08:30 | NUR ---
PERFORMED INITIAL MORNING ASSESSMENT ON PT. LUNG SOUNDS ARE CLEAR. PT IS RECEIVING IV HEPARIN. NO SIGNS OF BLEEDING OR UNUSUAL BRUISING.
[2019-01-24] MEDS ORDERED: ASCORBIC ACID 500 MG TAB PO SCH (08:43)
[2019-01-24] MEDS ORDERED: FERROUS SULFATE 325 MG TABEC PO SCH (08:43)
[2019-01-24] MEDS: CHOLECALCIFEROL 1,000 IU TAB PO SCH (08:45)
[2019-01-24] MEDS: LACTOBACILLUS RHAMNOSUS GG 1 EACH CAP PO SCH (08:45)
[2019-01-24] MEDS: METOPROLOL 25 MG TAB PO SCH (08:46)
[2019-01-24] MEDS: GABAPENTIN 300 MG CAP PO SCH (08:46)
[2019-01-24] MEDS ORDERED: ECOTRIN 81 MG TABEC PO SCH (09:00)
[2019-01-24] MEDS ORDERED: FUROSEMIDE 40 MG/4 ML VIAL IVP SCH (09:00)
[2019-01-24] MEDS: INSULIN LANTUS 100 UNITS/ML 10 ML VIAL SUBQ SCH (09:15)
--- NOTE | 2019-01-24 10:25 | NUR ---
ROUNDED ON PT. PT IS RESTING COMFORTABLY IN BED. ALL SAFETY MEASURES IN PLACE.
--- NOTE | 2019-01-24 11:30 | NUR ---
DISCONTINUED IV HEPARIN PER DR ORDERS. PREPARING PT FOR DISCHARGE.
[2019-01-24] MEDS: AZITHROMYCIN 500 MG in DEXTROSE 5% 250 ML IV SCH (11:34)
[2019-01-24] MEDS ORDERED: FURO-572 PO (11:36)
[2019-01-24] MEDS ORDERED: LACT10CA PO (11:38)
[2019-01-24] MEDS ORDERED: AZIT250T3 PO (11:38)
[2019-01-24] MEDS ORDERED: BACTNA NS (11:53)
[2019-01-24] MEDS ORDERED: CHLO118S2 TP (11:53)
[2019-01-24 12:00] VITALS: BP 137/77
--- NOTE | 2019-01-24 12:15 | NUR ---
PER DR MCDERMOTT, PT NEEDS IV BOLUS 500ML, DR MCDERMOTT MADE AWARE OF PT'S HISTORY OF CHF AND BNP 1200, OK TO BOLUS 500ML FOR DEHYDRATION PER DR MCDERMOTT, Y.
[2019-01-24] MEDS ORDERED: NACL 0.9% 500 ML IV SCH (12:30)
--- NOTE | 2019-01-24 12:35 | NUR ---
PT COMPLAINED OF NAUSEA. ADMINISTERED ZOFRAN PER ORDERS FOR NAUSEA
[2019-01-24] MEDS: ONDANSETRON 4 MG/2 ML VIAL IM/IVP PRN (12:37)
--- NOTE | 2019-01-24 12:38 | NUR ---
PT COMPLAINED OF PAIN AND BURNING AT IV SITE FROM ANTIBIOTIC. SWITCHED THE MEDICATION ADMINISTRATION TO THE OTHER IV LINE
--- NOTE | 2019-01-24 13:30 | NUR ---
ROUNDED ON PT. PT SLEEPING IN BED. NO APPARENT DISTRESS. ALL SAFETY MEASURES IN PLACE.
--- NOTE | 2019-01-24 14:11 | NUR ---
FAXED ORDER FOR ROLLING WALKER TO [facility] [phone] PHONE [phone]
--- NOTE | 2019-01-24 14:25 | NUR ---
PT SLEEPING QUIETLY I N NAD, RESP EVEN UNLABORED, SKIN WARM DRY COLOR WNL, IVF INFUSING WELL, SITE WNL, PT CONTINUES ON TELE MONITOR, AWAITING HH PT AND WALKER ARRANGEMENT BY CASE MANAGEMENT BEFORE DC HOME.
--- NOTE | 2019-01-24 14:53 | NUR ---
ALSO RECEIVED ORDER FOR HOME HEALTH FOR P.T. [facility], NO VNA, NO STAFFING [facility], NO STAFFING [facility] , NO [facility]ICAL [facility], NO MEDICAL CALLED [facility], THEY WILL TAKE THE PATIENT. I FAXED FACE SHEET, ORDER, H&P, MEDLIST AND P.T. NOTES TO [facility] PHONE, . FAX [phone]. Addendum: 01/24/19 at 1559 by Omaira Rene CM FROM [facility], SPOKE WITH SCOT.
--- NOTE | 2019-01-24 15:28 | NUR ---
SPOKE WITH DENISE FROM [facility]. THEY WILL DELIVER THE WALKER BETWEEN 4P.M. AND 6P.M. TODAY AT THE ROOM. I INFORMED .HONEY GARCIA. ABOUT THE WALKER AND HOME HEALTH BY JOÃO.
[2019-01-24 16:00] VITALS: BP 130/70
--- NOTE | 2019-01-24 16:45 | NUR ---
PT SITTING UP IN CHAIR TALKING ON THE PHONE, DISCHARGE INSTRUCTIONS AND RX INFO GIVEN AND EXPLAINED TO PT, PT VERBALIZED FULL UNDERSTANDING, AWAITING WALKER TO TO BE DELIVERED BEFORE GOING HOME.
--- NOTE | 2019-01-24 16:50 | NUR ---
BLOOD SUGAR 68, APPLE JUICE GIVEN.
--- NOTE | 2019-01-24 17:30 | NUR ---
BLOOD SUGAR AFTER JUICE 75, PT NOW EATING DINNER. IV DC'D, CATH TIP INTACT, BLEEDING CONTROLLED. PT CHITRA WELL.
--- NOTE | 2019-01-24 17:45 | NUR ---
WALKER DELIVERED, SIZE ADJUSTED FOR HER HEIGHT.
--- NOTE | 2019-01-24 18:10 | NUR ---
PT'S DAUGHTER HERE TO TAKE HER HOME, PT ESCORTED TO FRONT LOBBY AND ASSISTED INTO THE CAR, DC HOME WITH HH.
[2019-01-25] MEDS ORDERED: FERROUS SULFATE 325 MG TABEC PO SCH (08:00)
[2019-01-25] MEDS ORDERED: ASCORBIC ACID 500 MG TAB PO SCH (09:00)
[2019-02-09 10:22] LABS: FOLIC ACID 8.9 ng/mL (>3.0)
== END 2019-01-24 18:10 | disposition home health service (06) | DRG 720 ==
LOC: MED 23:37 → MTU 01-22 01:37
PROVIDERS: ADMIT General Practice; ATTEND General Practice
DX: A41.9 Sepsis, unspecified organism (principal); I21.A1 Myocardial infarction type 2; E43 Unspecified severe protein-calorie malnutrition; N17.0 Acute kidney failure with tubular necrosis; I50.43 Acute on chronic combined systolic (congestive) and diastolic (congestive) heart failure; E11.22 Type 2 diabetes mellitus with diabetic chronic kidney disease; J18.1 Lobar pneumonia, unspecified organism; I13.0 Hypertensive heart and chronic kidney disease with heart failure and stage 1 through stage 4 chronic kidney disease, or unspecified chronic kidney disease; E86.0 Dehydration; Z68.28 Body mass index [BMI] 28.0-28.9, adult; D63.8 Anemia in other chronic diseases classified elsewhere; E11.65 Type 2 diabetes mellitus with hyperglycemia; E78.5 Hyperlipidemia, unspecified; M79.7 Fibromyalgia; N18.3 Chronic kidney disease, stage 3 (moderate); D64.9 Anemia, unspecified; N39.0 Urinary tract infection, site not specified; I16.1 Hypertensive emergency; E78.2 Mixed hyperlipidemia; E83.51 Hypocalcemia; E83.39 Other disorders of phosphorus metabolism; G47.9 Sleep disorder, unspecified; Z87.891 Personal history of nicotine dependence; Z79.899 Other long term (current) drug therapy; Z90.49 Acquired absence of other specified parts of digestive tract; Z83.3 Family history of diabetes mellitus; Z82.49 Family history of ischemic heart disease and other diseases of the circulatory system; Z71.3 Dietary counseling and surveillance; Z79.84 Long term (current) use of oral hypoglycemic drugs
CPT/HCPCS: 36415; 71045; 76770; 80048; 80053; 80305; 81001; 82150; 82607; 82728; 82746; 82948; 83036; 83540; 83690; 83735; 83880; 84100; 84443; 84484; 85025; 85045; 85610; 85730; 87070; 87081; 87086; 87205; 93005; 93925; 93970; 94640; 96365; 96375; 97110; 97116; 97530; 99285; J0360; J0456; J0696; J1644; J1815; J1940; J2270; J2405; J2543; J7060; J7620; Q0092

== ENCOUNTER 2019-03-04 20:22 | Inpatient (IN) | payer MEDICAID, OTHER ==
[~2019-03-04] VITALS: Ht 157.5 cm; Wt 74.8 kg
[~2019-03-04 20:22] MED LIST changes: +AZIT250T3 PO; +BACTNA NS; +CHLO118S2 TP; -DULO20EC PO; +FURO-572 PO; +GABA300C PO; -HUM SUBQ; +IBUP-2213 PO; +INSU100I7 SQ; -INSU100S22 SUBQ; +LACT10CA PO; -LEVO500T2 PO; +LOSA25TA43 PO; -LYR50 PO; -METO-485 PO; +SIMV20TA1 PO; +VITD1000 PO
[2019-03-04 20:30] VITALS: BP 183/94
--- NOTE | 2019-03-04 20:33 | NUR ---
TO LOBBY A/W BED, XRAY, AMBULATORY
--- NOTE | 2019-03-04 21:10 | NUR ---
PT AMBULATED TO BED #9
[2019-03-04 21:22] LABS: BASOPHILS % (AUTO) 0.5 % (0.0-2.0); EOSINOPHILS % (AUTO) 0.1 % (0.0-4.0); HEMATOCRIT 38.5 % (36-48); HEMOGLOBIN 12.6 g/dL (12.0-16.0); LYMPHOCYTES # (AUTO) 0.5 K/uL (2.5-16.5); LYMPHOCYTES % (AUTO) 4.8 % (20.5-51.1); MEAN CORPUSCULAR HEMOGLOBIN 26 pg (27-31); MEAN CORPUSCULAR HGB CONC 33 g/dL (33-37); MEAN CORPUSCULAR VOLUME 80.6 fL (80-94); MONOCYTES # (AUTO) 0.1 K/uL (0.8-1.0); MONOCYTES % (AUTO) 0.7 % (1.7-9.3); NEUTROPHILS # (AUTO) 9.5 K/uL (1.8-7.7); NEUTROPHILS % (AUTO) 93.9 % (42.2-75.2); PLATELET COUNT (AUTO) 242 K/uL (140-450); RED BLOOD CELL COUNT(AUTO) 4.78 MIL/uL (4.20-5.40); RED CELL DISTRIBUTION WIDTH 14.1 % (11.6-13.7); WHITE BLOOD COUNT (AUTO) 10.1 K/uL (4.8-10.8)
[2019-03-04 21:35] LABS: PROTHROMBIN TIME 8.8 secs (10.8-13.4)
[2019-03-04 21:42] LABS: ALBUMIN 2.3 g/dL (3.4-5.0); ANION GAP 7.5 (8-16); CARBON DIOXIDE 24.7 mmol/L (21-32); CREATININE 1.8 mg/dL (0.6-1.3); POTASSIUM 4.2 mmol/L (3.5-5.1); TOTAL BILIRUBIN 0.3 mg/dL (0.0-1.0)
--- NOTE | 2019-03-04 21:49 | NUR ---
53 y/o F presented to Ed wtih c/o difficulty breathing x1 day. Per pt, " I feel pressure when i take deep breaths." bilateral lungs banda clear. O2 saturation 96% on room air. denies pain. edema BLE noted. ERMD notified. Will continue to monitor.
[2019-03-04] MEDS ORDERED: NACL 0.9% 2,000 ML IV ONE (21:55)
[2019-03-04] MEDS ORDERED: ASPIRIN 81 MG TAB.CHEW PO ONE (21:55)
--- NOTE | 2019-03-04 22:50 | NUR ---
Pt hypertensive, BP 186/92. Pt c/o headache. Dr. Salmeron aware.
[2019-03-04] MEDS ORDERED: hePARIN / DEXT 5% PREMIX 250 ML IV SCH (23:15)
[2019-03-04] MEDS ORDERED: cloNIDine 0.1 MG TAB PO ONE (23:15)
[2019-03-04] MEDS ORDERED: INSULIN REGULAR, HUMAN 100 UNIT/ML VIAL IV ONE (23:15)
[2019-03-04] MEDS ORDERED: HEPARIN PER PHARMACY MC PRN (23:15)
[2019-03-04] MEDS ORDERED: NITROGLYCERIN 2% 1 GM PKT TP ONE (23:15)
[2019-03-04] MEDS ORDERED: NACL 0.9% 1,000 ML IV SCH (23:19)
[2019-03-04] MEDS ORDERED: ALBUTEROL 0.083% 2.5 MG/3 ML NEBU INH PRN (23:20)
[2019-03-04] MEDS ORDERED: ONDANSETRON 4 MG/2 ML VIAL IVP PRN (23:20)
[2019-03-04] MEDS ORDERED: ACETAMINOPHEN 325 MG TAB PO PRN (23:20)
[2019-03-04] MEDS ORDERED: LABETALOL 100 MG/20 ML VIAL IVP PRN (23:20)
[2019-03-04] MEDS ORDERED: HYDROcodone/APAP 5/325 MG 1 TAB TAB PO PRN (23:20)
--- NOTE | 2019-03-04 23:20 | NUR ---
Pt awake. Family at bedside. will continue to monitor.
[2019-03-04] MEDS ORDERED: PIPER/TAZO 3.375GM/D5W PREMIX 50 ML IV ONE (23:45)
--- NOTE | 2019-03-04 23:50 | NUR ---
Patient will be admitted to care of Dr. Cunha. Admited to [facility]. Will go to room 120B. Belongings list completed. Report to RADHA Lancaster. Transfer of care at this. Addendum: 03/05/19 at 0147 by [facility] Patient will be admitted to care of Dr. Cunha. Admited to [facility]. Will go to room 120B. Belongings list completed. Report to RADHA Lancaster. Transfer of care at this time.
--- NOTE | 2019-03-04 23:52 | NUR ---
RECEIVED FROM ER PER BRITTA AWAKE AND ALERT. ABLE TO VERBALIZE NEEDS WELL. SPEAKS GOOD AUSTRIAN. LOWER EXTREMITIES WITH +2 EDEMA. SKIN INTACT. DX. OF PNA, NON STEMI, HTN. IVF SITE TO LAC#20 PATENT AND WITH GOOD BLOOD RETURN. ORIENTED TO ROOM AND GOAL UMPIRE. CALL LIGHT WITH IN REACH. CARE PLANS FOR THE NIGHT DISCUSSED WITH HER. RAPID RESPONSE ORIENTED. RESPIRATORY THERAPIST IN HERE TO TAKE CARE OF PT.
[2019-03-05 00:01] VITALS: BP 159/95
--- NOTE | 2019-03-05 00:06 | NUR ---
RECEIVED PATIENT ON ROOM AIR, PULSE OX SAT 100%. BREATH SOUNDS CLEAR. PRN BREATHING TREATMENT NOT INDICATED AT THIS TIME. WILL CONTINUE TO MONITOR.
--- NOTE | 2019-03-05 00:45 | NUR ---
PT IN BED SLEEPING ALL FALLS AND CONTACT PRECAUTIONS OBSERVED. V/S FOLLOWS T 97.5 P 70 R 18 B/P 115/62 02 100% ON ROOM AIR. ROCEPHIN HUNG AND RUNNING ORDERED.
[2019-03-05] MEDS: MORPHINE SULFATE 4 MG/ML SYR IVP PRN ×2 (01:02→08:47)
[2019-03-05] MEDS ORDERED: PIPERACILLIN/TAZOBACTAM 3.375 GM VIAL IV ONE (01:04)
--- NOTE | 2019-03-05 01:30 | NUR ---
PT. NOTED WALKING STRAIGHT GOING RESTROOM IN SPITE OF HAVING PLANTAR PAIN FROM FIBROMYALGIA. COLLECTED UA FROM PT. STILL WIDE AWAKE AND WATCHING TV. ENCOURAGED TO REST AND SLEEP. "OK"
[2019-03-05] MEDS ORDERED: cefTRIAXone 1,000 MG VIAL ONE (01:51)
[2019-03-05] MEDS ORDERED: DOXYCYCLINE 100 MG in DEXTROSE 5% 100 ML IV SCH (02:00)
[2019-03-05] MEDS: hePARIN / DEXT 5% PREMIX 250 ML IV SCH ×2 (02:10→10:22)
[2019-03-05 02:47] LABS: APPEARANCE,URINE CLEAR (CLEAR); BILIRUBIN,URINE NEGATIVE (NEGATIVE); BLOOD, URINE 2+ (NEGATIVE); COLOR,URINE YELLOW (YELLOW); LEUKOCYTE ESTERASE ,URINE NEGATIVE (NEGATIVE); NITRITE, URINE NEGATIVE (NEGATIVE); UGLUCOSE 3+ (NEGATIVE)
--- NOTE | 2019-03-05 02:49 | NUR ---
HEPARIN DRIP STARTED AT 7.2 ML/H CALCULATED BY PHARMACY. INITIAL BOLUS OF HEPARIN 3.600 UNITS. INFUSING AT LEFT HAND #20 AC . NEW IVF LINE TO LEFT HAND #22 INSERTED ADDITIONAL LINE FOR IV ABT AND OTHER IVF'S. NO NOTED ALLERGIES TO IV ABT INFUSED.
--- NOTE | 2019-03-05 03:00 | NUR ---
SLEEPING WELL. ALL IVF SITES INTACT AND WITH GOOD BLOOD RETURN.
[2019-03-05] MEDS ORDERED: DOXYCYCLINE 100 MG VIAL IV ONE (03:19)
[2019-03-05 03:47] LABS: RBC,URINE 11-20 (MOD) /HPF (0-5)
[2019-03-05 04:31] VITALS: BP 140/82
[2019-03-05] MEDS: BLOOD GLUCOSE MONITORING 1 DEV DEV FS SCH ×4 (05:11→21:45)
[2019-03-05] MEDS: INSULIN LISPRO SLIDING SCALE 100 UNITS/ML VIAL SUBQ PRN ×2 (05:16→13:05)
--- NOTE | 2019-03-05 06:00 | NUR ---
AWAKE AT THIS TIME AND WATCHING TV.
--- NOTE | 2019-03-05 07:25 | NUR ---
REPORT GIVEN BY MANAGER OF HUMAN RESOURCES NURSE AT BEDSIDE. PATIENT NOT IN OBVIOUS SIGNS OF DISTRESS OR DISCOMFORT. PATIENT APPEARS IN PLEASANT MOOD RESPONDING WITH A SMILE AND ALERT WITH NO REQUESTS AT THIS TIME.
--- NOTE | 2019-03-05 07:40 | NUR ---
PATIENT WAS AWAKE, ALERT. RESPIRATION EVEN, UNLABOR ON ROOM AIR. SKIN DRY AND WARM. IV PATENT AND INTACT. COMPLAINED OF HEADACHE, AND BILATERAL LEG PAIN 7/10, WILL MEDICATE PER ORDER. NO DISTRESS NOTED AT THIS TIME. PLAN OF CARE WAS DISCUSSED WITH PATIENT. BED AT LOW POSITION, SIDE RAILS UP. CALL LIGHT WITHIN REACH
[2019-03-05 08:02] LABS: BASOPHILS % (AUTO) 0.2 % (0.0-2.0); HEMATOCRIT 33.8 % (36-48); HEMOGLOBIN 10.9 g/dL (12.0-16.0); LYMPHOCYTES # (AUTO) 0.9 K/uL (2.5-16.5); MEAN CORPUSCULAR HEMOGLOBIN 26 pg (27-31); MEAN CORPUSCULAR HGB CONC 32 g/dL (33-37); MEAN CORPUSCULAR VOLUME 80.8 fL (80-94); MONOCYTES # (AUTO) 0.3 K/uL (0.8-1.0); MONOCYTES % (AUTO) 2.8 % (1.7-9.3); NEUTROPHILS # (AUTO) 9.6 K/uL (1.8-7.7); PLATELET COUNT (AUTO) 222 K/uL (140-450); RED BLOOD CELL COUNT(AUTO) 4.18 MIL/uL (4.20-5.40); RED CELL DISTRIBUTION WIDTH 14.4 % (11.6-13.7); WHITE BLOOD COUNT (AUTO) 10.8 K/uL (4.8-10.8)
[2019-03-05 08:11] VITALS: BP 145/80
[2019-03-05] MEDS: LOSARTAN 25 MG TAB PO SCH (08:46)
[2019-03-05] MEDS: ASPIRIN 325 MG TAB PO SCH (08:46)
[2019-03-05] MEDS: LACTOBACILLUS RHAMNOSUS GG 1 EACH CAP PO SCH (08:47)
[2019-03-05] MEDS: GABAPENTIN 300 MG CAP PO SCH ×2 (08:47→21:06)
[2019-03-05] MEDS: INSULIN LANTUS 100 UNITS/ML 10 ML VIAL SUBQ SCH (08:48)
[2019-03-05 08:59] LABS: MAGNESIUM 1.9 mg/dL (1.8-2.4); PHOSPHORUS 2.8 mg/dL (2.5-4.9)
[2019-03-05] MEDS ORDERED: NON-FORMULARY ITEM (Losartan Potassium 1 TAB) PO SCH (09:00)
[2019-03-05] MEDS ORDERED: NON-FORMULARY ITEM (Lactobacillus Rhamnosus Gg (Culturelle Health & Wellness) 1 EACH) PO SCH (09:00)
[2019-03-05] MEDS ORDERED: INSULIN GLARGINE HUM REC ANLOG 40 UNIT SQ SCH (09:00)
--- NOTE | 2019-03-05 09:01 | NUR ---
medications administered including patient requested prn morphine.
[2019-03-05 09:09] LABS: ANION GAP 14.8 (8-16); CARBON DIOXIDE 21.7 mmol/L (21-32); CREATININE 1.8 mg/dL (0.6-1.3); POTASSIUM 4.5 mmol/L (3.5-5.1)
--- NOTE | 2019-03-05 10:10 | NUR ---
pt states pain is 1/10 and is comfortable and states she feels great and has no requests at this time.
--- NOTE | 2019-03-05 10:25 | NUR ---
HEPARIN DRIP WAS READJUSTED PER ORDER. PTT WAS ORDERED.
--- NOTE | 2019-03-05 11:30 | NUR ---
HEPARIN DRIP AND IVF WERE STOPPED PER ORDER
[2019-03-05 12:00] VITALS: BP 141/83
--- NOTE | 2019-03-05 12:00 | NUR ---
NOON MEDS ADMINISTERED, PATIENT DENIES PAIN AT THIS TIME AND STATES SHE IS COMFORTABLE WITH NO REQUESTS AND IS PLANNING ON SLEEPING.
--- NOTE | 2019-03-05 12:25 | NUR ---
PT SITTING UP IN BED STATES NO PAIN OR DISCOMFORT. BREATHING EQUAL AND WITHOUT DISTRESS AND PATIENT STATES SHE IS COMFORTABLE.
--- NOTE | 2019-03-05 12:30 | NUR ---
PT LEFT HAND IV REMOVED DUE TO INFILTRATION. TIP INTACT, NO BLEEDING, GAUZE AND PAPER TAPE APPLIED TO SITE.
[2019-03-05] MEDS: FUROSEMIDE 20 MG/2 ML VIAL IVP SCH ×2 (12:53→21:05)
--- NOTE | 2019-03-05 13:50 | NUR ---
PT UP IN BED READING AT THIS TIME, NO SIGNS OF OBVIOUS DISTRESS WITH BREATHING EQUAL AND NON DISTRESSED. PATIENT SMILES AND DENIES ANY REQUESTS FOR ANYTHING AT THIS TIME.
--- NOTE | 2019-03-05 14:48 | NUR ---
PT LAYING ON PHONE. NODS HEAD NO TO QUESTION OF NEEDING ANY ASSISTANCE AT THIS TIME. NO OBVIOUS DISTRESS AT THIS TIME, PATIENT APPEARS COMFORTABLE.
--- NOTE | 2019-03-05 15:28 | NUR ---
PT SLEEPING AT THIS TIME. NO OBVIOUS SIGNS OF DISTRESS APPARENT, BREATHING EQUAL UNLABORED.
[2019-03-05 16:00] VITALS: BP 116/58
--- NOTE | 2019-03-05 16:15 | NUR ---
PT SITTING UP IN BED TALKING TO FAMILY WHO IS VISITING AT THIS TIME. PT DENIES PAIN OR ANY OTHER REQUESTS.
[2019-03-05] MEDS: DEXTROSE 50% 50 ML SYR IVP PRN (16:34)
--- NOTE | 2019-03-05 16:39 | NUR ---
PATIENT BS WAS 48, RECHECKED AT 41. D50 WAS GIVEN PER ORDER, ORANGE JUICE WAS GIVEN. WILL RECHECK BS IN 30 MINUTES
--- NOTE | 2019-03-05 17:22 | NUR ---
PATIENT FAMILY STILL AT BEDSIDE WITH PATIENT. PATIENT SITTING UP CALM AND RELAXED WITH NO PAIN. BLOOD SUGAR 129 WITH PATIENT STILL REPORTING FEELING "WOOZY" BUT FEELING MUCH BETTER RECENTLY, PATIENT WAS INSTRUCTED TO NOT GET OUT OF BED WITHOUT ASSISTANCE FROM STAFF. PT VERBALIZES UNDERSTANDING. HAS NO REQUESTS FOR ANYTHING MORE AT THIS TIME.
--- NOTE | 2019-03-05 18:33 | NUR ---
PT ON PHONE WITH FAMILY. NO OBVIOUS SIGNS OF DISTRESS, BREATHING EQUAL AND UNLABORED. DENIES ANY PAIN. IV SITE INTACT ASYMPTOMATIC.
--- NOTE | 2019-03-05 19:11 | NUR ---
ENDORSEMENT GIVEN TO SOUND RECORDING TECHNICIAN NURSE. PATIENT IS STABLE AT THIS TIME
--- NOTE | 2019-03-05 19:11 | NUR ---
RECEIVED REPORT FROM SIMONE GARCIA AND PRADEEP RN DAYSHIFT NURSE AT BEDSIDE FOR CONTINUITY OF CARE, PT IN STABLE CONDITION.
[2019-03-05 20:00] VITALS: BP 123/69
--- NOTE | 2019-03-05 20:00 | NUR ---
PT IN LOW BED WITH SIDE RAILS UP X2 AND ALL FALLS AND CONTACT PRECAUTIONS OBSERVED. PT DENIES PAIN NO SOB NOTED. V/S FOLLOWS T 98.4 P 72 R 18 B/P 123/69 02 97% ON ROOM AIR. IV SITE ON LEFT AC 20G INTACT AND FLUSHED PATENT.
[2019-03-05] MEDS ORDERED: SIMVASTATIN 20 MG TAB PO SCH (21:00)
--- NOTE | 2019-03-05 21:00 | NUR ---
PT GIVEN ORDERED LASIX VIA IVP, ORDERED, WELL ORDERED NEURONTIN FOR DM PERIPHERAL NEUROPATHY WELL ZOCOR FOR HLD. PT FINGERSTICK IS 158. PT DECLINED COVERAGE AT THIS TIME.
[2019-03-06] VITALS: BP 115/62
--- NOTE | 2019-03-06 00:45 | NUR ---
PT IN BED ROCEPHIN HUNG ORDERED. IV SITE ON LEFT AC FLUSHED PATENT. V/S FOLLOWS T 97.5 P 70 R 18 B/P 115/62 02 100% ON ROOM AIR.
[2019-03-06 04:00] VITALS: BP 148/80
--- NOTE | 2019-03-06 04:00 | NUR ---
PT IN BED ALL FALLS AND CONTACT PRECAUTIONS IN PLACE. V/S FOLLOWS T 97.7 P 71 R 18 B/P 148/80 02 98% ON ROOM AIR.
--- NOTE | 2019-03-06 06:00 | NUR ---
FINGERSTICK IS 55, PT GIVEN DEXTROSE 50% IVP FOR LOW BLOOD SUGAR. PT ALSO GIVEN 8 OZ OF JUICE.
[2019-03-06] MEDS: DEXTROSE 50% 50 ML SYR IVP PRN (06:07)
[2019-03-06] MEDS: BLOOD GLUCOSE MONITORING 1 DEV DEV FS SCH ×2 (06:12→11:55)
--- NOTE | 2019-03-06 07:15 | NUR ---
RETAKE OF FINGERSTICK IS 191. REPORT GIVEN TO AM NURSE AT BEDSIDE FOR CONTINUITY OF CARE, PT IN STABLE CONDITION.
--- NOTE | 2019-03-06 07:40 | NUR ---
PATIENT WAS SLEEPING COMFORTABLY, EASILY AROUSABLE BY NAME. RESPIRATION EVEN, UNLABOR ON ROOM AIR. SKIN DRY AND WARM. IV PATENT AND INTACT. COMPLAINED OF BILATERAL LEG PAIN 5/10, WILL MEDICATE PER ORDER. PLAN OF CARE WAS DISCUSSED WITH PATIENT. BED AT LOW POSITION, SIDE RAILS UP. CALL LIGHT WITHIN REACH
[2019-03-06 08:00] VITALS: BP 168/92
[2019-03-06] MEDS: INSULIN LANTUS 100 UNITS/ML 10 ML VIAL SUBQ SCH (09:00)
[2019-03-06 09:17] LABS: BASOPHILS # (AUTO) 0.1 K/uL (0.00-0.22); BASOPHILS % (AUTO) 0.7 % (0.0-2.0); EOSINOPHILS # (AUTO) 0.5 K/uL (0-0.4); HEMATOCRIT 35.4 % (36-48); HEMOGLOBIN 11.4 g/dL (12.0-16.0); LYMPHOCYTES % (AUTO) 17.6 % (20.5-51.1); MEAN CORPUSCULAR HEMOGLOBIN 26 pg (27-31); MEAN CORPUSCULAR HGB CONC 32 g/dL (33-37); MEAN CORPUSCULAR VOLUME 81.4 fL (80-94); MONOCYTES # (AUTO) 0.7 K/uL (0.8-1.0); NEUTROPHILS # (AUTO) 8.2 K/uL (1.8-7.7); NEUTROPHILS % (AUTO) 71.7 % (42.2-75.2); PLATELET COUNT (AUTO) 244 K/uL (140-450); RED BLOOD CELL COUNT(AUTO) 4.35 MIL/uL (4.20-5.40); RED CELL DISTRIBUTION WIDTH 14.4 % (11.6-13.7); WHITE BLOOD COUNT (AUTO) 11.4 K/uL (4.8-10.8)
--- NOTE | 2019-03-06 09:30 | NUR ---
PATIENT WAS AWAKE, ALERT. RESPIRATION EVEN, UNLABOR ON ROOM AIR. NO DISTRESS NOTED AT THIS TIME
--- NOTE | 2019-03-06 09:30 | NUR ---
IV ON LEFT AC WAS REMOVED DUE TO LEAKAGE, CATHETER INTACT, NO ACTIVE BLEEDING SEEN. NEW IV WAS INSERTED RIGHT FA 22G. PATIENT TOLERATED WELL
[2019-03-06] MEDS: FUROSEMIDE 20 MG/2 ML VIAL IVP SCH (09:35)
[2019-03-06] MEDS: LACTOBACILLUS RHAMNOSUS GG 1 EACH CAP PO SCH (09:59)
[2019-03-06] MEDS: ASPIRIN 325 MG TAB PO SCH (09:59)
[2019-03-06] MEDS: GABAPENTIN 300 MG CAP PO SCH (09:59)
[2019-03-06] MEDS: LOSARTAN 25 MG TAB PO SCH (10:00)
[2019-03-06 10:01] LABS: MAGNESIUM 2.1 mg/dL (1.8-2.4); PHOSPHORUS 4.3 mg/dL (2.5-4.9)
[2019-03-06 10:09] LABS: ANION GAP 11.4 (8-16); CARBON DIOXIDE 26.4 mmol/L (21-32); POTASSIUM 4.8 mmol/L (3.5-5.1)
[2019-03-06 10:10] LABS: CREATININE 1.8 mg/dL (0.6-1.3)
--- NOTE | 2019-03-06 10:15 | NUR ---
DR. MEDINA WAS MADE AWARE OF TROPONIN 0.127. ORDERED TO CONTINUE TO MONITOR
[2019-03-06 12:00] VITALS: BP 133/79
--- NOTE | 2019-03-06 12:15 | NUR ---
PATIENT WAS AWAKE, ALERT, EATING LUNCH COMFORTABLY. NO DISTRESS NOTED AT THIS TIME
[2019-03-06] MEDS: INSULIN LISPRO SLIDING SCALE 100 UNITS/ML VIAL SUBQ PRN (12:34)
--- NOTE | 2019-03-06 13:43 | NUR ---
PATIENT HAS BEEN SCREENED AND CATEGORIZED MODERATE NUTRITION RISK. PATIENT WILL BE SEEN WITHIN 3-5 DAYS OF ADMISSION. 03/07/19 - 03/09/19 ME[address]IGUEZ MBA, RD
--- NOTE | 2019-03-06 14:15 | NUR ---
DISCHARGE INSTRUCTION WAS GIVEN AND EXPLAINED TO PATIENT. PATIENT VERBALIZED UNDERSTANDING. IV WAS REMOVED, CATHETER INTACT, NO ACTIVE BLEEDING SEEN. SERVICES EXECUTIVE AND ID WERE REMOVED. ALL BELONGINGS WERE TAKEN WITH THE PATIENT. PATIENT WAS ESCORTED OUT IN WHEELCHAIR BY STAFF. PATIENT IS STABLE AT THIS TIME.
--- NOTE | 2019-03-07 14:46 | NUR ---
CALLED OFFICE DR Nora SILVA SPOKE TO YUDELKA [phone], FOLLOW UP APPOINTMENT MADE ON 03/18/19 3PM, [address] [id number]. CALLED PATIENT NUMBER AND SPOKE TO SPOUSE ROBERT [phone] AND MADE AWARE OF THE FOLLOW-UP APPOINTMENT AND VERBALIZED UNDERSTANDING.
== END 2019-03-06 14:15 | disposition home or self-care (01) | DRG 194 ==
LOC: MED 20:22 → MTU 23:19
PROVIDERS: ADMIT Internal Medicine Pulmonary Disease; ATTEND Internal Medicine Pulmonary Disease
DX: I13.0 Hypertensive heart and chronic kidney disease with heart failure and stage 1 through stage 4 chronic kidney disease, or unspecified chronic kidney disease (principal); E11.22 Type 2 diabetes mellitus with diabetic chronic kidney disease; E11.40 Type 2 diabetes mellitus with diabetic neuropathy, unspecified; J44.9 Chronic obstructive pulmonary disease, unspecified; I50.33 Acute on chronic diastolic (congestive) heart failure; E87.1 Hypo-osmolality and hyponatremia; N18.3 Chronic kidney disease, stage 3 (moderate); E11.65 Type 2 diabetes mellitus with hyperglycemia; Z79.899 Other long term (current) drug therapy; Z90.49 Acquired absence of other specified parts of digestive tract; E44.1 Mild protein-calorie malnutrition
CPT/HCPCS: 36415; 71045; 80048; 80053; 81001; 81025; 82948; 83036; 83605; 83735; 83880; 84100; 84484; 85025; 85610; 85730; 87040; 87081; 87086; 87804; 93005; 96374; 99285; J0696; J1644; J1815; J1940; J2270; J2543; J3490; J7030; J7060

== ENCOUNTER 2019-03-10 02:01 | Emergency (ER) | payer OTHER ==
[~2019-03-10] VITALS: Ht 157.5 cm; Wt 74.4 kg
[2019-03-10 02:05] VITALS: BP 195/98
--- NOTE | 2019-03-10 02:05 | NUR ---
TO BED # 03 VIA W/C REPORT GIVEN TO LOR GARCIA
--- NOTE | 2019-03-10 02:08 | NUR ---
53 YO F BIB DAUGHTER PRESENTS TO THE ED C/O 9/10 STERNAL CHEST PAIN THAT SHE DESCRIBES TIGHTNESS RADIATES TO HER BACK X 2 HOURS. SHE ALSO C/O ELAINE. PT WAS ADMITTED TO [facility] 1 WEEK AGO FOR 3 DAYS FOR CHEST PAIN AND CHF. DENIES NV, SOB, DIZZINESS. -- PT APPEARS UNCOMFORTABLE BUT IS COOPERATIVE AND ANSWERS QUESTIONS APPROPRIATELY. SKIN IS PINK, DRY, WARM. NO DIAPHORESIS NOTED. -- EKG DONE: NSR. VSS. -- BILATERAL PEDAL PITTING 2+ EDEMA NOTED. PMH-- DM, FIBROMYALGIA, HTN, NEUROPATHY, ANEMIA
--- NOTE | 2019-03-10 02:10 | NUR ---
EKG READS SINUS RHYTHM AT 83
[2019-03-10] MEDS ORDERED: ONDANSETRON 4 MG/2 ML VIAL IVP ONE (02:40)
[2019-03-10] MEDS ORDERED: cloNIDine 0.1 MG TAB PO ONE (02:40)
[2019-03-10] MEDS ORDERED: FUROSEMIDE 40 MG/4 ML VIAL IVP ONE (02:40)
[2019-03-10] MEDS ORDERED: DICYCLOMINE HCL LIQUID 20 MG, ALUMINUM HYD/MAG/SIMETHICONE 30 ML, LIDOCAINE VISCOUS 2% ... PO ONE ×3 (02:40)
[2019-03-10 02:59] LABS: BASOPHILS # (AUTO) 0.1 K/uL (0.00-0.22); BASOPHILS % (AUTO) 0.7 % (0.0-2.0); EOSINOPHILS # (AUTO) 0.5 K/uL (0-0.4); EOSINOPHILS % (AUTO) 4.9 % (0.0-4.0); HEMATOCRIT 34.4 % (36-48); HEMOGLOBIN 11.3 g/dL (12.0-16.0); LYMPHOCYTES % (AUTO) 20.1 % (20.5-51.1); MEAN CORPUSCULAR HEMOGLOBIN 26 pg (27-31); MEAN CORPUSCULAR HGB CONC 33 g/dL (33-37); MEAN CORPUSCULAR VOLUME 79.9 fL (80-94); MONOCYTES # (AUTO) 0.6 K/uL (0.8-1.0); MONOCYTES % (AUTO) 6.4 % (1.7-9.3); NEUTROPHILS # (AUTO) 6.8 K/uL (1.8-7.7); NEUTROPHILS % (AUTO) 67.9 % (42.2-75.2); PLATELET COUNT (AUTO) 272 K/uL (140-450); RED CELL DISTRIBUTION WIDTH 14.1 % (11.6-13.7); WHITE BLOOD COUNT (AUTO) 10.1 K/uL (4.8-10.8)
--- NOTE | 2019-03-10 03:00 | NUR ---
CLONIDINE 0.1 MG PO GIVEN FOR BP: 213/86. WILL CONTINUE TO MONITOR.
[2019-03-10 03:15] LABS: ANION GAP 8.3 (8-16); CARBON DIOXIDE 26.8 mmol/L (21-32); CREATININE 1.5 mg/dL (0.6-1.3); POTASSIUM 4.1 mmol/L (3.5-5.1); TOTAL BILIRUBIN 0.2 mg/dL (0.0-1.0)
[2019-03-10] MEDS ORDERED: INSULIN REGULAR, HUMAN 100 UNIT/ML VIAL SUBQ ONE (03:30)
[2019-03-10] MEDS ORDERED: MORPHINE SULFATE 4 MG/ML SYR IVP ONE (03:35)
[2019-03-10 03:56] LABS: BARBITURATE, URINE NEG. ng/ml (NEG <=200); BENZODIAZEPINE, URINE NEG. ng/mL (NEG <=200); CANNABINOID, URINE NEG. ng/mL (NEG <=50); COCAINE, URINE NEG. ng/mL (NEG <=300); OPIATE, URINE NEG. ng/mL (NEG <=2000); PHENCYCLIDINE SCREEN,URINE NEG. ng/mL (NEG <=25)
--- NOTE | 2019-03-10 04:00 | NUR ---
MORPHINE 4MG IVP GIVEN FOR 9/10 ELAINE.
--- NOTE | 2019-03-10 04:30 | NUR ---
CLONIDINE EFFECTIVE. B/P: 157/81.
--- NOTE | 2019-03-10 05:00 | NUR ---
PT REPORTS ZERO PAIN. STATES SHE FEELS MUCH BETTER.
[2019-03-10 05:14] VITALS: BP 157/81
--- NOTE | 2019-03-10 05:14 | NUR ---
Patient discharged with v/s stable. Written and verbal after care instructions given and explained. Patient verbalized understanding. Ambulatory with steady gait. All questions addressed prior to discharge. Advised to take all medication as prescribed by doctor follow up with PMD or final inspector and tester in 1-2 days and to return to ER immediately if S/Sx get worse.
== END 2019-03-10 05:14 | disposition home or self-care (01) ==
LOC: MED 02:01
DX: I13.0 Hypertensive heart and chronic kidney disease with heart failure and stage 1 through stage 4 chronic kidney disease, or unspecified chronic kidney disease (principal); I50.9 Heart failure, unspecified; N18.9 Chronic kidney disease, unspecified; E11.22 Type 2 diabetes mellitus with diabetic chronic kidney disease; K21.9 Gastro-esophageal reflux disease without esophagitis; D64.9 Anemia, unspecified; F17.210 Nicotine dependence, cigarettes, uncomplicated; J44.9 Chronic obstructive pulmonary disease, unspecified; Z79.1 Long term (current) use of non-steroidal anti-inflammatories (NSAID); Z79.899 Other long term (current) drug therapy
CPT/HCPCS: 36415; 71045; 80053; 80305; 83880; 84484; 85025; 93005; 96372; 96374; 96375; 99284; J1815; J1940; J2270; J2405; Q0092

== ENCOUNTER 2019-07-13 14:53 | Inpatient (IN) | payer OTHER ==
[~2019-07-13] VITALS: Ht 157.5 cm; Wt 71.7 kg
[~2019-07-13 14:53] MED LIST changes: -AZIT250T3 PO; -BACTNA NS
[2019-07-13 14:58] VITALS: BP 137/81
--- NOTE | 2019-07-13 15:31 | NUR ---
PT TAKEN TO BED 04 BY WHEELCHAIR.
--- NOTE | 2019-07-13 15:31 | NUR ---
BIB DAUGHTER. AAO X4 C/O SOB/ COUGH X1.5 WKS, STATED RECENTLY CHANGED MEDICATION TO STIOLTO, DID NOT WORK.ALSO STATED PASSED OUT ON THURSDAY WITH INJURIED LOWER BACK, HX OF COPD, HTN, DM, FIBERMYO, CHF. PT O2 SAT 91% RA, ADMINISTERED ON 2LPM VIA NC, O2 SAT AT 95%. LABORED BREATHING NOTED, PT NOT ABLE TO SPEAK IN FULL SENTENCES. PT PLACED ON FULL UNHAIRER. HOB UP. BED SIDE RAILS UP X1. ER TO EVALUATE PT.
--- NOTE | 2019-07-13 15:56 | NUR ---
DR RUIZ AT BEDSIDE FOR PT EVALUATION
[2019-07-13] MEDS ORDERED: ALBUTEROL SULFATE/IPRATROPIU 3 ML SOL IH ONE (16:05)
--- NOTE | 2019-07-13 16:05 | NUR ---
LAB INSPECTOR BARREL AT BEDSIDE
--- NOTE | 2019-07-13 16:12 | NUR ---
RT AT BEDSIDE FOR BREATHING TX
[2019-07-13 16:31] LABS: BASOPHILS % (AUTO) 0.4 % (0.0-2.0); EOSINOPHILS # (AUTO) 0.2 K/uL (0-0.4); EOSINOPHILS % (AUTO) 2.2 % (0.0-4.0); HEMATOCRIT 32.7 % (36-48); HEMOGLOBIN 10.6 g/dL (12.0-16.0); LYMPHOCYTES # (AUTO) 1.1 K/uL (2.5-16.5); LYMPHOCYTES % (AUTO) 9.5 % (20.5-51.1); MEAN CORPUSCULAR HEMOGLOBIN 25 pg (27-31); MEAN CORPUSCULAR HGB CONC 33 g/dL (33-37); MONOCYTES # (AUTO) 0.6 K/uL (0.8-1.0); MONOCYTES % (AUTO) 5.4 % (1.7-9.3); NEUTROPHILS # (AUTO) 9.2 K/uL (1.8-7.7); NEUTROPHILS % (AUTO) 82.5 % (42.2-75.2); PLATELET COUNT (AUTO) 197 K/uL (140-450); RED BLOOD CELL COUNT(AUTO) 4.24 MIL/uL (4.20-5.40); RED CELL DISTRIBUTION WIDTH 15.1 % (11.6-13.7); WHITE BLOOD COUNT (AUTO) 11.2 K/uL (4.8-10.8)
[2019-07-13 16:40] LABS: CARBON DIOXIDE 25.2 mmol/L (21-32); CREATININE 2.5 mg/dL (0.6-1.3); POTASSIUM 4.2 mmol/L (3.5-5.1); TOTAL BILIRUBIN 0.6 mg/dL (0.0-1.0)
--- NOTE | 2019-07-13 16:58 | NUR ---
RECEIVED CRITICAL LAB REPORT FROM BAMBI FROM LAB OF TROPONIN 0.199; READ BACK AND VERIFIED. DR RUIZ MADE AWARE
[2019-07-13] MEDS ORDERED: AZITHROMYCIN 500 MG in DEXTROSE 5% 250 ML IV ONE (17:45)
[2019-07-13] MEDS ORDERED: ASPIRIN 325 MG TAB PO ONE (17:45)
[2019-07-13] MEDS ORDERED: BUMETANIDE 1 MG/4 ML VIAL IV ONE (17:45)
[2019-07-13] MEDS ORDERED: ACETAMINOPHEN 325 MG TAB PO ONE (17:45)
--- NOTE | 2019-07-13 18:07 | NUR ---
SPOKE WITH TESSIE, SCHOOL CROSSING GUARD SUPERVISOR, REQUEST FOR FAX OF CLINICALS TO [facility].
[2019-07-13] MEDS ORDERED: cefTRIAXone 1,000 MG VIAL ONE (18:21)
[2019-07-13] MEDS ORDERED: AZITHROMYCIN 500 MG INJ VIAL IV ONE (18:21)
[2019-07-13] MEDS ORDERED: LORazepam 2 MG/ML VIAL IVP PRN (18:35)
[2019-07-13] MEDS ORDERED: DEXTROSE 50% 50 ML SYR IVP PRN (18:35)
[2019-07-13] MEDS ORDERED: ACETAMINOPHEN 325 MG TAB PO PRN (18:35)
[2019-07-13] MEDS ORDERED: ONDANSETRON 4 MG/2 ML VIAL IVP PRN (18:35)
[2019-07-13] MEDS ORDERED: METO25TA PO (19:09)
[2019-07-13] MEDS ORDERED: LISI-420 PO (19:09)
[2019-07-13] MEDS ORDERED: LOSA25TA32 PO (19:09)
[2019-07-13] MEDS ORDERED: TIOT4MIS2 IH (19:09)
--- NOTE | 2019-07-13 19:35 | NUR ---
Patient will be admitted to care of DR ESCAMILLA. Admited to TELE. Will go to room 111 B. Belongings list completed. Report to RADHA BUSBY.
--- NOTE | 2019-07-13 19:35 | NUR ---
RECEIVED BEDSIDE REPORT FROM CARMEN GARCIA. PT IS AAOX4. ON NC 2L O2. RESPIRATIONS ARE EQUAL AND UNLABORED. WHEEZING AUDIBLE GREATER ON R SIDE WILL CALL RT FOR BREATHING TREATMENT. SKIN IS INTACT. PT IS AMBULATORY WITH ASSIST USES CANE OR WALKER AT HOME. SOB WITH ACTIVITY WILL GET HER A BEDSIDE COMMODE. DENIES OXYGEN USE AT HOME. PT WOULD LIKE TO HAVE OXYGEN AT HOME WILL RECOMMEND SS TO DOCTOR. PT WITH BLE EDEMA +2 PITTING. IV ON RAC INFUSING ZITHROMAX WAS COMPLETE ORDER FOR SL. ADMIT VS: 114/57 HR 92 100% ON 2L O2 RR 18 DENIES PAIN. MRSA SWAB OBTAINED. ORIENTED PT TO ROOM,STAFF,CALL LIGHT AND VISITING HOURS. SAFETY MEASURES ARE IN PLACE. WILL ROUND FREQUENTLY.
[2019-07-13 20:00] VITALS: BP 114/57
[2019-07-13] MEDS: ALBUTEROL 0.083% 2.5 MG/3 ML NEBU INH SCH (20:35)
[2019-07-13] MEDS: IPRATROPIUM 0.02% 0.5 MG/2.5 ML NEBU INH SCH (20:35)
--- NOTE | 2019-07-13 21:00 | NUR ---
SANDWICH GIVEN. RADIOLOGY IN FOR US OF KIDNEY. WILL CONTINUE TO MONITOR.
[2019-07-13] MEDS: GABAPENTIN 100 MG CAP PO SCH (21:27)
[2019-07-13] MEDS: SIMVASTATIN 20 MG TAB PO SCH (21:27)
[2019-07-13] MEDS: FUROSEMIDE 40 MG/4 ML VIAL IVP SCH (21:27)
[2019-07-13] MEDS: BLOOD GLUCOSE MONITORING 1 DEV DEV FS SCH (21:27)
--- NOTE | 2019-07-13 21:27 | NUR ---
MEREDITH MEDICATIONS WERE GIVEN. BLOOD SUGAR 159 2U OF COVERAGE GIVEN PER ORDERS. PT TOLERATED WELL. CALL LIGHT IS WITHIN REACH. WILL CONTINUE TO MONITOR.
[2019-07-13] MEDS: INSULIN LISPRO SLIDING SCALE 100 UNITS/ML VIAL SUBQ PRN (21:33)
--- NOTE | 2019-07-13 22:30 | NUR ---
PT IS SLEEPING COMFORTABLY IN BED. CHEST RISE AND FALL. NO S/S OF DISTRESS. WILL CONTINUE TO MONITOR.
[2019-07-14] VITALS: BP 143/77
--- NOTE | 2019-07-14 | NUR ---
VITAL SIGNS ARE WITHIN NORMAL LIMITS. NO S./S OF DISTRESS. WILL CONTINUE TO MONITOR.
[2019-07-14] MEDS: IPRATROPIUM 0.02% 0.5 MG/2.5 ML NEBU INH SCH ×4 (01:33→20:04)
[2019-07-14] MEDS: ALBUTEROL 0.083% 2.5 MG/3 ML NEBU INH SCH ×4 (01:33→20:04)
--- NOTE | 2019-07-14 02:40 | NUR ---
PT IS SLEEPING COMFORTABLY IN BED. CHEST RISE AND FALL. SAFETY MEASURES ARE IN PLACE. WILL CONTINUE TO MONITOR.
[2019-07-14 04:00] VITALS: BP 157/90
--- NOTE | 2019-07-14 04:00 | NUR ---
VITAL SIGNS ARE WITHIN NORMAL LIMITS. ALL NEEDS MET AT THIS TIME. CALL LIGHT IS WITHIN REACH.
[2019-07-14] MEDS: HYDROcodone/APAP 5/325 MG 1 TAB TAB PO PRN (04:53)
[2019-07-14] MEDS: INSULIN LISPRO SLIDING SCALE 100 UNITS/ML VIAL SUBQ PRN ×4 (06:23→21:04)
--- NOTE | 2019-07-14 06:30 | NUR ---
ADMINISTERED TYLENOL FOR HEADACHE. PT IS SITTING UP IN BED PUTTING ON MAKEUP. NO S/S OF DISTRESS. CALL LIGHT IS WITHIN REACH. WILL CONTINUE TO MONITOR.
[2019-07-14] MEDS: BLOOD GLUCOSE MONITORING 1 DEV DEV FS SCH ×4 (06:34→21:01)
--- NOTE | 2019-07-14 07:14 | NUR ---
GAVE BEDSIDE REPORT TO DAY SHIFT RN. PT ENDORSED IN STABLE CONDITION.
[2019-07-14 07:38] VITALS: BP 148/76
--- NOTE | 2019-07-14 07:41 | NUR ---
RECEIVED BED SIDE REPORT FROM SUPERVISOR STEEL DIVISION RN. PT A/O X4, ON TELE MONITOR. VS STABLE, ON RA 02 99%. SKIN INTACT, RIGHT AC 20G SL. WAITING FOR THIRD TROPONIN LAB RESULTS. RT AT BEDSIDE DOING BREATHING TX. PT DENIES ANY SOB AT THIS TIME BUT STATES SHE FEELS TIRED WHEN SHE TALKS. CRACKLES HEARD BILAT LOBES INSPIRATORY AND EXPIRATORY ON LEFT LUNG AND ONLY INSPIRATORY CRACKLES ON RIGHT LUNG. PT STATES SHE HAS A 7/10 THROBBING ELAINE. PER SUPERVISOR STEEL DIVISION RN, SHE GAVE TYLENOL PRN. WILL GIVE OTHER PAIN MED PER MD ORDER. PT STATES SHE USES A CANE/WALKER AT HOME BUT DAUGHTER DID NOT BRING IT INTO HOSPITAL. BED ALARM ON, EDUCATED PT ON THE IMPORTANCE OF USING CALL LIGHT WHEN NEEDING TO USE RESTROOM. CALL LIGHT WITHIN REACH. WILL CONTINUE TO MONITOR.
[2019-07-14 08:12] LABS: BASOPHILS # (AUTO) 0.1 K/uL (0.00-0.22); BASOPHILS % (AUTO) 0.7 % (0.0-2.0); EOSINOPHILS # (AUTO) 0.2 K/uL (0-0.4); HEMATOCRIT 29.1 % (36-48); HEMOGLOBIN 9.6 g/dL (12.0-16.0); LYMPHOCYTES # (AUTO) 1.2 K/uL (2.5-16.5); LYMPHOCYTES % (AUTO) 11.4 % (20.5-51.1); MEAN CORPUSCULAR HEMOGLOBIN 26 pg (27-31); MEAN CORPUSCULAR HGB CONC 33 g/dL (33-37); MEAN CORPUSCULAR VOLUME 78.3 fL (80-94); MONOCYTES # (AUTO) 0.7 K/uL (0.8-1.0); MONOCYTES % (AUTO) 6.4 % (1.7-9.3); NEUTROPHILS # (AUTO) 8.4 K/uL (1.8-7.7); NEUTROPHILS % (AUTO) 79.5 % (42.2-75.2); PLATELET COUNT (AUTO) 172 K/uL (140-450); RED BLOOD CELL COUNT(AUTO) 3.71 MIL/uL (4.20-5.40); RED CELL DISTRIBUTION WIDTH 15.5 % (11.6-13.7); WHITE BLOOD COUNT (AUTO) 10.5 K/uL (4.8-10.8)
[2019-07-14] MEDS: CHOLECALCIFEROL 1,000 IU TAB PO SCH (08:14)
[2019-07-14] MEDS: LACTOBACILLUS RHAMNOSUS GG 1 EACH CAP PO SCH (08:14)
[2019-07-14] MEDS: GABAPENTIN 100 MG CAP PO SCH ×2 (08:14→20:36)
[2019-07-14] MEDS: FUROSEMIDE 40 MG/4 ML VIAL IVP SCH ×2 (08:16→20:36)
--- NOTE | 2019-07-14 08:20 | NUR ---
GAVE AM MEDS. HELD LANTUS 60 UNITS, BLOOD SUGAR 149.
[2019-07-14] MEDS: ENOXAPARIN 30 MG/0.3 ML SYR SUBQ SCH (08:25)
[2019-07-14] MEDS: INSULIN LANTUS 100 UNITS/ML 10 ML VIAL SUBQ SCH (08:26)
--- NOTE | 2019-07-14 08:36 | NUR ---
PATIENT HAS BEEN SCREENED AND CATEGORIZED MODERATE NUTRITION RISK. PATIENT WILL BE SEEN WITHIN 3-5 DAYS OF ADMISSION. 07/17/[address]
[2019-07-14] MEDS ORDERED: INSULIN GLARGINE HUM REC ANLOG 60 UNIT SQ SCH (09:00)
[2019-07-14] MEDS ORDERED: LOSARTAN 25 MG TAB PO SCH (09:00)
[2019-07-14] MEDS ORDERED: CHLORHEXIDINE GLUCONATE TP SCH (09:00)
--- NOTE | 2019-07-14 11:27 | NUR ---
BROKEN GLASS FROM ZITHROMAX VIAL FOUND ON FLOOR. CALLED EVS 2 TIMES. NO ANSWER. BROKEN GLASS THROWN IN SHARPS CONTAINER. PT STABLE. BLOOD SUGAR 213. WILL GIVE INSULIN PER MD ORDER AND SLIDING SCALE.
[2019-07-14] MEDS: MORPHINE SULFATE 2 MG/ML SYR IVP PRN ×3 (11:52→21:09)
--- NOTE | 2019-07-14 11:55 | NUR ---
GAVE MORPHINE PRN PER MD ORDER. PT SLEEPING. STATES SHE HAS A 7/10 THROBBING ELAINE. EDUCATED PT ON THE IMPORTANCE OF LETTING ME KNOW WHEN SHE NEEDS TO USE RESTROOM. CALL LIGHT WITHIN REACH. SPECIMEN CUP FOR UA AT BEDSIDE. EDUCATED PT ON IMPORTANCE OF OBTAINING UA. PT VERBALIZED UNDERSTANDING. WILL CONTINUE TO MONITOR.
[2019-07-14 12:15] VITALS: BP 141/79
[2019-07-14 13:33] LABS: APPEARANCE,URINE CLEAR (CLEAR); COLOR,URINE YELLOW (YELLOW)
[2019-07-14 13:35] LABS: BLOOD, URINE 2+ (NEGATIVE); UGLUCOSE 1+ (NEGATIVE)
[2019-07-14 13:36] LABS: BILIRUBIN,URINE NEGATIVE (NEGATIVE)
[2019-07-14 13:37] LABS: LEUKOCYTE ESTERASE ,URINE NEGATIVE (NEGATIVE); NITRITE, URINE NEGATIVE (NEGATIVE)
[2019-07-14 13:42] LABS: TRICHOMONAS,URINE None Seen /HPF (None Seen); WBC,URINE 0-5 /HPF (0-5); YEAST,URINE None Seen /HPF (None Seen)
[2019-07-14 13:43] LABS: COARSE GRANULAR CASTS,URINE None Seen /LPF (None Seen)
[2019-07-14 16:20] VITALS: BP 151/79
--- NOTE | 2019-07-14 16:35 | NUR ---
CAME TO SEE PT. PT STABLE AT THIS TIME.
--- NOTE | 2019-07-14 16:36 | NUR ---
MADE AWARE ABOUT ELEVATED TROPONIN. ORDERED ANOTHER TROPONIN LABS TOMORROW MORNING. TORB CARDIAC WITH CCHO 60G DIET.
--- NOTE | 2019-07-14 16:38 | NUR ---
PER DR.CHANG ZAMAN, CHEM 7 ORDERED STAT. IF CREATININE BETTER, PT CAN BE DC HOME.
[2019-07-14 17:35] LABS: ANION GAP 12.3 (8-16); CARBON DIOXIDE 24.4 mmol/L (21-32); CREATININE 2.7 mg/dL (0.6-1.3); POTASSIUM 3.7 mmol/L (3.5-5.1)
--- NOTE | 2019-07-14 17:49 | NUR ---
PT'S CREATININE INCREASED TO 2.7 AND BUN INCREASED TO 40. PAGED TO SEE IF HE STILL WANTS TO DC PATIENT.
[2019-07-14] MEDS ORDERED: AZITHROMYCIN 500 MG in DEXTROSE 5% 250 ML IV SCH (18:00)
--- NOTE | 2019-07-14 18:05 | NUR ---
PER 'S TORB, PT TO STAY INPATIENT FOR ANOTHER DAY. ORDERED NS TO RUN AT 125CC/HR, CBC AND CHEM 7 LABS IN THE AM TOMORROW.
[2019-07-14] MEDS: NACL 0.9% 1,000 ML IV SCH (18:46)
--- NOTE | 2019-07-14 18:47 | NUR ---
PT STATED HER RIGHT AC IV WAS BURNING HER. NO INFILTRATION NOTED. FLUSHES WELL. STARTED NEW IV ON LEFT HAND 22G. REMOVED RIGHT AC 20G. NO BLEEDING NOTED.
--- NOTE | 2019-07-14 19:13 | NUR ---
GAVE BEDSIDE REPORT TO RENDERER RN. PT STABLE.
--- NOTE | 2019-07-14 19:13 | NUR ---
RECIUEVED PT AAOX4 , NID , IV SITE INTACT AND PATENT , DENIES CHEST PAIN BUT COMPLAINING OF ELAINE PLAN OF CARE DISCUSSED AND VERBALIZE UNDERSTANDING . ON SAFETY / FALL PRECAUTION PROTOCOL - RE INSTRUCT OR REMIND THE PT PRESS THE CALL LIGHT WHENEVER SHE WILL GO TO BATHROOM .CALL LIGHT WITHIN REACH , WILL CONT. TO MONITOR.
[2019-07-14 20:00] VITALS: BP 158/82
--- NOTE | 2019-07-14 20:20 | NUR ---
RECEIVED PATIENT ON ROOM AIR, PULSE OX SAT 97%. SCHEDULED BREATHING TREATMENTS ADMINISTERED. TOLERATED TX WELL WITHOUT ADVERSE SIDE EFFECTS. NO ACUTE RESPIRATORY DISTRESS NOTED AT THIS TIME. WILL CONTINUE TO MONITOR.
[2019-07-14] MEDS: SIMVASTATIN 20 MG TAB PO SCH (20:36)
--- NOTE | 2019-07-14 20:36 | NUR ---
BP 158/82 - LASIX 40MG TIV GIVEN ORDERED - INDICATION AND S/E OF MEDICINE EXPLAINED TO THE PT.- ON CYTOLOGY LABORATORY MANAGER ., CALL LIGHT WITH REACH . WILL CONT. TO MONITOR.
--- NOTE | 2019-07-14 21:09 | NUR ---
PT COMPLAINING OF ELAINE 05/18 - MORPHINE GIVEN ORDERED , - INDICATION AND S/E OF MED INSTRUCTED TO PT , CALL LIGHT WITHIN REACH , WILL CONT TO MONITOR.
[2019-07-15] VITALS: BP 156/80
--- NOTE | 2019-07-15 | NUR ---
MADE ROUNDS , DENIES ANY PAIN AT THIS TIME , RESP EEN AND UNLABORED , CALL LIGHT WITHIN REACH . WILL CONT. TO MONITOR.
[2019-07-15] MEDS: IPRATROPIUM 0.02% 0.5 MG/2.5 ML NEBU INH SCH ×3 (01:50→13:40)
[2019-07-15] MEDS: ALBUTEROL 0.083% 2.5 MG/3 ML NEBU INH SCH ×3 (01:50→13:40)
[2019-07-15] MEDS: NACL 0.9% 1,000 ML IV SCH ×2 (02:10→11:02)
[2019-07-15 04:00] VITALS: BP 152/82
[2019-07-15 04:41] LABS: BASOPHILS # (AUTO) 0.1 K/uL (0.00-0.22); BASOPHILS % (AUTO) 0.6 % (0.0-2.0); EOSINOPHILS # (AUTO) 0.4 K/uL (0-0.4); EOSINOPHILS % (AUTO) 4.8 % (0.0-4.0); HEMATOCRIT 28.1 % (36-48); HEMOGLOBIN 9.3 g/dL (12.0-16.0); LYMPHOCYTES # (AUTO) 1.1 K/uL (2.5-16.5); MEAN CORPUSCULAR HEMOGLOBIN 26 pg (27-31); MEAN CORPUSCULAR HGB CONC 33 g/dL (33-37); MEAN CORPUSCULAR VOLUME 77.5 fL (80-94); MONOCYTES # (AUTO) 0.6 K/uL (0.8-1.0); MONOCYTES % (AUTO) 6.8 % (1.7-9.3); NEUTROPHILS # (AUTO) 6.7 K/uL (1.8-7.7); NEUTROPHILS % (AUTO) 75.8 % (42.2-75.2); PLATELET COUNT (AUTO) 171 K/uL (140-450); RED BLOOD CELL COUNT(AUTO) 3.62 MIL/uL (4.20-5.40); RED CELL DISTRIBUTION WIDTH 15.4 % (11.6-13.7); WHITE BLOOD COUNT (AUTO) 8.9 K/uL (4.8-10.8)
[2019-07-15 04:48] LABS: ANION GAP 13.1 (8-16); CARBON DIOXIDE 23.5 mmol/L (21-32); CREATININE 2.7 mg/dL (0.6-1.3); POTASSIUM 3.6 mmol/L (3.5-5.1)
[2019-07-15 04:55] LABS: PHOSPHORUS 4.7 mg/dL (2.5-4.9)
[2019-07-15 05:45] LABS: ALBUMIN 1.7 g/dL (3.4-5.0); ANION GAP 14.1 (8-16); CARBON DIOXIDE 23.4 mmol/L (21-32); CREATININE 2.7 mg/dL (0.6-1.3); POTASSIUM 3.5 mmol/L (3.5-5.1); TOTAL BILIRUBIN 0.3 mg/dL (0.0-1.0)
--- NOTE | 2019-07-15 05:54 | NUR ---
RELAYED TO AP ABOUT TROPONIN RESULT THRU PHONE BY PULMONARY GROUP - CHARGE INFORMED ABOUT INCREASING TROPONIN RESULT , WILL CONT. TO MONITOR.
[2019-07-15] MEDS: BLOOD GLUCOSE MONITORING 1 DEV DEV FS SCH ×2 (06:33→11:03)
[2019-07-15] MEDS: INSULIN LISPRO SLIDING SCALE 100 UNITS/ML VIAL SUBQ PRN (06:41)
--- NOTE | 2019-07-15 07:10 | NUR ---
PT RECEIVED FROM NIGHT NURSE TERRI. PT IN BED SLEEPING, AROUSAL BY VERBAL STIMULUS. PT HAS IV TO R HAND WITH NS AT 125ML/HR. PT AAOX4, NO SIGNS OF ACUTE DISTRESS AT THIS TIME. NIGHT NURSE STATED SHE TRIED TO CONTACT ON-CALL MD TO REPORT ELEVATED TROPONIN, BUT HAS NOT RECEIVED A CALL BACK. WILL FOLLOW-UP TO REPORT TROPONIN. Addendum: 07/15/19 at 0808 by Fany Arevaol RN TIME OF REPORT WAS [phone]
--- NOTE | 2019-07-15 07:26 | NUR ---
ENDORSED TO AM SHIFT FOR CONT. OF CARE - STILL NO CALLBACK FROM AP . -PT STABLE CONDITION.
[2019-07-15 08:00] VITALS: BP 145/80
--- NOTE | 2019-07-15 08:00 | NUR ---
DR. ESCAMILLA PAGED TO REPORT ELEVATED TROPONIN. WILL WAIT FOR CALL BACK.
[2019-07-15] MEDS: CHOLECALCIFEROL 1,000 IU TAB PO SCH (08:41)
[2019-07-15] MEDS: GABAPENTIN 100 MG CAP PO SCH (08:42)
[2019-07-15] MEDS: LACTOBACILLUS RHAMNOSUS GG 1 EACH CAP PO SCH (08:42)
[2019-07-15] MEDS: ENOXAPARIN 30 MG/0.3 ML SYR SUBQ SCH (08:53)
[2019-07-15] MEDS: INSULIN LANTUS 100 UNITS/ML 10 ML VIAL SUBQ SCH (08:55)
[2019-07-15] MEDS: HYDROcodone/APAP 5/325 MG 1 TAB TAB PO PRN (11:46)
[2019-07-15 12:00] VITALS: BP 149/88
[2019-07-15 15:55] VITALS: BP 149/88
--- NOTE | 2019-07-15 16:28 | NUR ---
CALLED PT'S PCP [phone] DR YORK MADE F/U APPOINTMENT ON 07/21/19 AT 2 PM THE [address] [place] [phone] . APPOINTMENT REMINDER GIVEN TO THE PT.
--- NOTE | 2019-07-15 16:59 | NUR ---
Pt discharged at this time. Right hand IV discontinued, catheter intact, site with scant bleeding covered with dry gauze & tape. Written & verbal discharge instructions provided to pt. Written script for z-pack given to pt. Pt agrees to f/u with Dr. Nolasco as scheduled. Pt also states he will f/u with Dr. Bee for pulmo. Pt left unit via wheelchair, transported by daughter via private car to home. All belongings with pt upon departure, including fww. Name band removed.
[2019-07-15] MEDS ORDERED: FUROSEMIDE 40 MG TAB PO SCH (17:00)
== END 2019-07-15 17:03 | disposition home or self-care (01) | DRG 113 ==
LOC: MED 14:53 → MTU 18:41
PROVIDERS: ADMIT Internal Medicine Pulmonary Disease; ATTEND Internal Medicine Pulmonary Disease
DX: J06.9 Acute upper respiratory infection, unspecified (principal); E43 Unspecified severe protein-calorie malnutrition; I50.33 Acute on chronic diastolic (congestive) heart failure; N17.9 Acute kidney failure, unspecified; I13.0 Hypertensive heart and chronic kidney disease with heart failure and stage 1 through stage 4 chronic kidney disease, or unspecified chronic kidney disease; E11.22 Type 2 diabetes mellitus with diabetic chronic kidney disease; R65.10 Systemic inflammatory response syndrome (SIRS) of non-infectious origin without acute organ dysfunction; N18.3 Chronic kidney disease, stage 3 (moderate); J44.9 Chronic obstructive pulmonary disease, unspecified; E78.5 Hyperlipidemia, unspecified; D64.9 Anemia, unspecified; Z83.3 Family history of diabetes mellitus; Z82.49 Family history of ischemic heart disease and other diseases of the circulatory system; Z87.891 Personal history of nicotine dependence
CPT/HCPCS: 36415; 71045; 76770; 80048; 80053; 81001; 82306; 82728; 82948; 83540; 83605; 83735; 83880; 84100; 84484; 85025; 87040; 87081; 87086; 93005; 94640; 96365; 99285; J0456; J0696; J1650; J1815; J1940; J2270; J3490; J7030; J7060; J7613; J7620; J7644; Q0092

== ENCOUNTER 2019-07-28 12:11 | Inpatient (IN) | payer OTHER ==
[~2019-07-28] VITALS: Ht 157.5 cm; Wt 72.6 kg
[~2019-07-28 12:11] MED LIST changes: -CHLO118S2 TP; -GABA300C PO; -IBUP-2213 PO; -LACT10CA PO; +LISI-420 PO; +LOSA25TA32 PO; -LOSA25TA43 PO; +METO25TA PO; +TIOT4MIS2 IH; -VITD1000 PO
--- NOTE | 2019-07-28 12:22 | NUR ---
PT W/C ASSISTED TO BED 11
[2019-07-28 12:23] VITALS: BP 103/98
--- NOTE | 2019-07-28 12:37 | NUR ---
53F BIB DAUGHTER C/O PRODUCTIVE COUGH, N/V , BODY ACHE, DYSPNEA, ORTHOPNEA X 3 DAYS. PT RAN OUT OF COPD MED STIOLO AND ALUBUTEROL 3 DAYS AGO AND THAT'S WHEN SYMPTOMS STARTED. SPUTUM IS THICK YELLOW PER PATIENT. DIMINISHED LUNG SOUNDS LEFT LOBES ANTERIORLY. BLE 2+ PITTING EDEMA. HX CHF. MED HX: DM, CHF, HTN, HIGH CHOLESTEROL, COPD, APPENDECTOMY, C SECTION, GALL BLADDER REMOVAL Addendum: 07/28/19 at 1246 by MILI HOARSE VOICE FROM COUGHING SO FREQUENTLY PER DAUGHTER.
--- NOTE | 2019-07-28 12:46 | NUR ---
DR. GOMEZ EVALUATING PT AT BEDSIDE.
[2019-07-28] MEDS ORDERED: ALBUTEROL SULFATE/IPRATROPIU 3 ML SOL IH ONE ×2 (12:55→14:20)
--- NOTE | 2019-07-28 13:03 | NUR ---
RT AT BEDSIDE
--- NOTE | 2019-07-28 13:09 | NUR ---
LAB AT BEDSIDE
--- NOTE | 2019-07-28 13:11 | NUR ---
PT REQUESTING PAPER TAPE FOR IV. 20 G R HAND INSERTED. IV TAPED DOWN WITH PAPER TAPE.
[2019-07-28 13:32] LABS: BASOPHILS # (AUTO) 0.1 K/uL (0.00-0.22); BASOPHILS % (AUTO) 0.7 % (0.0-2.0); EOSINOPHILS # (AUTO) 0.3 K/uL (0-0.4); EOSINOPHILS % (AUTO) 2.4 % (0.0-4.0); HEMATOCRIT 30.9 % (36-48); HEMOGLOBIN 9.9 g/dL (12.0-16.0); LYMPHOCYTES # (AUTO) 1.3 K/uL (2.5-16.5); LYMPHOCYTES % (AUTO) 11.4 % (20.5-51.1); MEAN CORPUSCULAR HEMOGLOBIN 26 pg (27-31); MEAN CORPUSCULAR HGB CONC 32 g/dL (33-37); MEAN CORPUSCULAR VOLUME 79.5 fL (80-94); MONOCYTES # (AUTO) 0.4 K/uL (0.8-1.0); MONOCYTES % (AUTO) 3.9 % (1.7-9.3); NEUTROPHILS % (AUTO) 81.6 % (42.2-75.2); PLATELET COUNT (AUTO) 311 K/uL (140-450); RED BLOOD CELL COUNT(AUTO) 3.89 MIL/uL (4.20-5.40)
--- NOTE | 2019-07-28 13:40 | NUR ---
SLUBBER FRAME CHANGER AT BEDSIDE
--- NOTE | 2019-07-28 14:19 | NUR ---
NOTIFIED DR. GOMEZ THAT PT REPORTS NO RELIEF OF SOB AFTER BREATHING TX.
--- NOTE | 2019-07-28 14:24 | NUR ---
RT AT BEDSIDE
--- NOTE | 2019-07-28 14:35 | NUR ---
NOTIFIED OF CRITICAL TROPONIN RESULT, AND BP OF 195/96. PT STATES HER NORMAL SBP AT HOME IS AROUND 170-190s. SHE TOOK ANTIHYPERTENSIVES AT NIGHTTIME ONLY, AND SHE TOOK THEM LAST NIGHT: LISINOPRIL 25MG AND ANOTHER SHE DOESN'T KNOW THE NAME.
[2019-07-28] MEDS ORDERED: NITROGLYCERIN 0.4 MG TAB SL ONE (14:40)
[2019-07-28] MEDS ORDERED: ASPIRIN 325 MG TAB PO ONE (14:40)
--- NOTE | 2019-07-28 14:49 | NUR ---
PT STATES SHE FEELS SLIGHTLY BETTER AFTER THE SECOND BREATHING TX.
--- NOTE | 2019-07-28 15:15 | NUR ---
DAUGHTER WENT BACK HOME TO GET LIST OF PATIENT'S HOME MEDS.
[2019-07-28] MEDS ORDERED: FURO-570 PO (15:29)
[2019-07-28] MEDS ORDERED: FUROSEMIDE 40 MG/4 ML VIAL IVP ONE (15:30)
[2019-07-28] MEDS ORDERED: GABA300C PO (15:33)
[2019-07-28] MEDS ORDERED: ALBU0.0912 IH (15:36)
[2019-07-28 16:30] VITALS: BP 183/88
--- NOTE | 2019-07-28 16:30 | NUR ---
RECEIVED PT FROM EMERGENCY ROOM. PT IN STABLE CONDITION. RESPIRATIONS EVEN AND UNLABORED, O2 2L VIA NC. IV INTACT AND PATENT. SAFETY MEASURES IN PLACE. BED IN LOW POSITION. WILL CONTINUE TO MONITOR.
--- NOTE | 2019-07-28 16:40 | NUR ---
Patient will be admitted to care of DR. NAVARRO. Admited to TELE. Will go to room 117. Belongings list completed. Report to RADHA CHUN. PT IN STABLE CONDITION.
[2019-07-28] MEDS ORDERED: ACETAMINOPHEN 325 MG TAB PO PRN (16:45)
--- NOTE | 2019-07-28 17:43 | NUR ---
TAVARES BUST[address] DR. HYDRALAZINE 10MG IVP Q4 PRN IF SYSTOLIC IS >160.
[2019-07-28] MEDS ORDERED: hydrALAZINE 20 MG/ML VIAL IVP PRN (17:45)
[2019-07-28 17:47] LABS: ANION GAP 11.7 (8-16); CARBON DIOXIDE 25.3 mmol/L (21-32); CREATININE 2.5 mg/dL (0.6-1.3)
--- NOTE | 2019-07-28 18:15 | NUR ---
TOLU DE JESUS DR. DISCONTINUE HYDRALAZINE DUE TO INCREASED HEART RATE. ORDER COREG 25MG PO NOW
[2019-07-28] MEDS ORDERED: CARVEDILOL 12.5 MG TAB PO SCH (18:34)
--- NOTE | 2019-07-28 19:15 | NUR ---
GAVE REPORT TO ICT TRAINER NURSE FOR CONTINUITY OF CARE. PT IN STABLE CONDITION. INFORMED ICT TRAINER NURSE TO RECHECK BLOOD PRESSURE AFTER 1900 MEDICATION COREG 25MG WAS ADMINISTERED.
--- NOTE | 2019-07-28 19:16 | NUR ---
RECEIVED BEDSIDE REPORT FROM DAY RN. PT IS AAOX4 ON NC 2L O2. RESPIRATIONS ARE EQUAL AND UNLABORED. IV ON R HAND 20G SL. C/C SOB DX CHF EXACERBATION. PT USES WALKER HAS STEADY GAIT. ON CONTACT ISOLATION FOR HX MRSA. POC DISCUSSED WITH PT. CALL LIGHT IS WITHIN REACH. WILL CONTINUE TO MONITOR.
[2019-07-28 20:00] VITALS: BP 159/89
--- NOTE | 2019-07-28 20:17 | NUR ---
MEREDITH RICHARDSON GIVEN. B/P 159/89 HR 74. VSS. CALL LIGHT IS WITHIN REACH. WILL CONTINUE TO MONITOR.
[2019-07-28] MEDS ORDERED: FUROSEMIDE 40 MG/4 ML VIAL IVP SCH (21:00)
--- NOTE | 2019-07-28 22:20 | NUR ---
PAGED DR NAVARRO REGARDING C/C SOB. PT WITH DIMINISHED LUNG SOUNDS SAT 93% ON RA AND 99% ON 2L NC.
--- NOTE | 2019-07-28 23:15 | NUR ---
EVALUATE PT, BS ARE BILAT DECREASED, HX OR COPD AND CHF, SAT 97% IN ROOM AIR, HR 86. I TOLD RN TO PAGE THE DR TO ORDER Q 6PRN DUONEB. PT IS NOT IN ANY DISTRESS
--- NOTE | 2019-07-28 23:20 | NUR ---
PAGED DR NAVARRO WILL AWAIT CALL BACK.
--- NOTE | 2019-07-28 23:30 | NUR ---
RT IN TO EVALUATE PT. RECOM NUO NEB Q6H PRN
[2019-07-29] VITALS: BP 155/66
[2019-07-29] MEDS ORDERED: ONDANSETRON 4 MG/2 ML VIAL IVP PRN
[2019-07-29] MEDS ORDERED: ALBUTEROL SULFATE/IPRATROPIU 3 ML SOL IH PRN
[2019-07-29] MEDS ORDERED: hydrALAZINE 20 MG/ML VIAL IVP PRN
[2019-07-29] MEDS ORDERED: HYDROcodone/APAP 5/325 MG 1 TAB TAB PO PRN
--- NOTE | 2019-07-29 | NUR ---
VITAL SIGNS ARE WITHIN NORMAL LIMITS. ALL NEEDS MET AT THIS TIME. CALL LIGHT IS WITHIN REACH. WILL CONTINUE TO MONITOR
[2019-07-29] MEDS: ALBUTEROL SULFATE/IPRATROPIU 3 ML SOL IH SCH ×3 (01:00→13:32)
--- NOTE | 2019-07-29 02:17 | NUR ---
PT IS SLEEPING COMFORTABLY IN BED. CHEST RISE AND FALL. RESPIRATIONS ARE EQUAL AND UNLABORED. CALL LIGHT IS WITHIN REACH. WILL CONTINUE TO MONITOR.
[2019-07-29 04:00] VITALS: BP 153/71
--- NOTE | 2019-07-29 04:00 | NUR ---
VITAL SIGNS ARE WITHIN NORMAL LIMITS. PT DENIES ANY PAIN. CALL LIGHT IS WITHIN REACH. WILL CONTINUE TO MONITOR.
[2019-07-29 06:52] LABS: BASOPHILS # (AUTO) 0.1 K/uL (0.00-0.22); BASOPHILS % (AUTO) 0.9 % (0.0-2.0); EOSINOPHILS # (AUTO) 0.4 K/uL (0-0.4); EOSINOPHILS % (AUTO) 4.3 % (0.0-4.0); HEMATOCRIT 28.9 % (36-48); HEMOGLOBIN 9.3 g/dL (12.0-16.0); LYMPHOCYTES # (AUTO) 1.5 K/uL (2.5-16.5); LYMPHOCYTES % (AUTO) 14.7 % (20.5-51.1); MEAN CORPUSCULAR HEMOGLOBIN 26 pg (27-31); MEAN CORPUSCULAR HGB CONC 32 g/dL (33-37); MEAN CORPUSCULAR VOLUME 79.3 fL (80-94); MONOCYTES # (AUTO) 0.5 K/uL (0.8-1.0); MONOCYTES % (AUTO) 4.8 % (1.7-9.3); NEUTROPHILS # (AUTO) 7.6 K/uL (1.8-7.7); NEUTROPHILS % (AUTO) 75.3 % (42.2-75.2); PLATELET COUNT (AUTO) 286 K/uL (140-450); RED BLOOD CELL COUNT(AUTO) 3.65 MIL/uL (4.20-5.40); RED CELL DISTRIBUTION WIDTH 15.6 % (11.6-13.7); WHITE BLOOD COUNT (AUTO) 10.1 K/uL (4.8-10.8)
[2019-07-29 07:09] LABS: ANION GAP 11.6 (8-16); CARBON DIOXIDE 23.2 mmol/L (21-32); CREATININE 2.3 mg/dL (0.6-1.3); POTASSIUM 3.8 mmol/L (3.5-5.1); TOTAL BILIRUBIN 0.4 mg/dL (0.0-1.0)
--- NOTE | 2019-07-29 07:26 | NUR ---
GAVE BEDSIDE REPORT TO DAY RN. PT ENDORSED IN STABLE CONDITION.
--- NOTE | 2019-07-29 07:27 | NUR ---
RECEIVED REPORT FROM THE SPEECH LANGUAGE PATHOLOGIST TRAVEL NURSE. PT IS AWAKE AND ORIENTED. INTRODUCED MYSELF AND UPDATED THE BOARD. PT IS ON TELE, ON ROOM AIR. PT IS AMBULATORY WITH FWW. SKIN IS INTACT EXCEPT SMALL DRY SCABS ALL OVER BUE D/T BEDBUGS PER PT. BLE PITTING EDEMA. BP IS HIGH THIS MORNING AT 202/92. WILL ADMINISTER MORNING MEDS AND PRN HYDRALAZINE. PT ALSO C/O NAUSEA. WILL ADMINISTER ZOFRAN. IV ON R HAND, 20G SL. DENIES PAIN. WILL CONTINUE TO MONITOR PT.
--- NOTE | 2019-07-29 07:45 | NUR ---
CRITICAL VALUE: TROPONIN .0143, SAME BEFORE.
[2019-07-29 08:00] VITALS: BP 202/92
--- NOTE | 2019-07-29 08:09 | NUR ---
PATIENT HAS BEEN SCREENED AND CATEGORIZED MODERATE NUTRITION RISK. PATIENT WILL BE SEEN WITHIN 3-5 DAYS OF ADMISSION. 08/01/19 08/02/[address]
--- NOTE | 2019-07-29 08:30 | NUR ---
ADMINISTERED MORNING MEDS, INCLUDING ZOFRAN FOR NAUSEA. PT TOLERATED WELL. WILL CONTINUE TO MONITOR PT.
[2019-07-29] MEDS ORDERED: ASPIRIN 81 MG TAB.CHEW PO SCH (09:00)
[2019-07-29] MEDS ORDERED: ENOXAPARIN 40 MG/0.4 ML SYR SUBQ SCH (09:00)
[2019-07-29] MEDS ORDERED: ENOXAPARIN 30 MG/0.3 ML SYR SUBQ SCH (09:00)
[2019-07-29] MEDS ORDERED: CARVEDILOL 12.5 MG TAB PO SCH (09:00)
[2019-07-29] MEDS ORDERED: FUROSEMIDE 40 MG/4 ML VIAL IVP SCH (09:00)
--- NOTE | 2019-07-29 09:19 | NUR ---
CONTACTED PATIENT'S PCP [facility] AT [phone], ABLE TO SPEAK TO TERRA. SHE PROVIDED ME WITH Jul AT 0900 AM. COPY OF APPOINTMENT WILL BE PROVIDED TO THE PATIENT.
--- NOTE | 2019-07-29 09:45 | NUR ---
DR. MCDERMOTT HERE TO ASSESS PT. NOTIFIED PT OF BP,TROPONIN AND BNP. MD AWARE. ADDED CATAPRES TO REGIMEN. WILL CONTINUE TO MONITOR PT.
[2019-07-29 12:00] VITALS: BP 165/68
[2019-07-29] MEDS ORDERED: cloNIDine 0.1 MG TAB PO SCH (13:00)
--- NOTE | 2019-07-29 13:05 | NUR ---
Repairer [employer]ge[employer] Note: I provided patient with appointment at [facility] information. Per patient, she has noticed she has become forgetful, she thinks it started on March 2019. When I asked her if she has shared this with pcp she responded she has not told new pcp but other physicians in the past and they seemed not to take her concern serious due to her age. She became tearful as she shared this information with me. I normalized her feelings and encouraged her to explain to pcp in detail her concerns and describe how it is affecting her. I told her that she has the right to request to be assigned to another pcp if she thinks MD is not being professional. She verbalized understanding. I offered to contact [facility] on her behalf and share her concern regarding becoming forgetful so pcp can possibly refer patient to neurologist or appropriate specialist. She accepted. I called and spoke with Maribell at [facility], made her aware of patient's concern. She stated she made a note on patient's chart and pcp will be notified of patient's concern.
--- NOTE | 2019-07-29 13:33 | NUR ---
GAVE D/C INSTRUCTIONS TO PT. SIGNED APPROPRIATE FORMS. PT IS AWAITING FOR HER DAUGHTER TO ARRIVE WITH HER CLOTHES. RADIOLOGY IS HERE FOR ECHO PER DR MCDERMOTT. WILL CONTINUE TO MONITOR PT. WILL REMOVE IV AND ID BANDS. PERSONAL BELONGINGS TO BE GATHERED.
[2019-07-29 13:36] VITALS: BP 165/68
--- NOTE | 2019-07-29 14:10 | NUR ---
WHEELCHAIRED PT TO THE FRONT. DAUGHTER WAITING IN THE CAR. PT IN STABLE CONDITION.
== END 2019-07-29 14:10 | disposition home or self-care (01) | DRG 469 ==
LOC: MED 12:11 → MTU 16:14
PROVIDERS: ADMIT Internal Medicine; ATTEND Internal Medicine
DX: N17.9 Acute kidney failure, unspecified (principal); I21.A1 Myocardial infarction type 2; I50.43 Acute on chronic combined systolic (congestive) and diastolic (congestive) heart failure; E44.0 Moderate protein-calorie malnutrition; I13.0 Hypertensive heart and chronic kidney disease with heart failure and stage 1 through stage 4 chronic kidney disease, or unspecified chronic kidney disease; N18.4 Chronic kidney disease, stage 4 (severe); E11.21 Type 2 diabetes mellitus with diabetic nephropathy; I42.9 Cardiomyopathy, unspecified; E11.42 Type 2 diabetes mellitus with diabetic polyneuropathy; E78.5 Hyperlipidemia, unspecified; E11.22 Type 2 diabetes mellitus with diabetic chronic kidney disease; J44.1 Chronic obstructive pulmonary disease with (acute) exacerbation; M79.7 Fibromyalgia; Z79.899 Other long term (current) drug therapy; Z90.49 Acquired absence of other specified parts of digestive tract; Z87.891 Personal history of nicotine dependence; Z68.29 Body mass index [BMI] 29.0-29.9, adult
CPT/HCPCS: 36415; 71045; 71046; 80048; 80053; 83880; 84484; 85025; 87081; 93005; 94640; 96374; 99285; J0360; J1650; J1940; J2405; J7620; Q0092

== ENCOUNTER 2019-08-15 15:12 | Inpatient (IN) | payer OTHER ==
[~2019-08-15] VITALS: Ht 157.5 cm; Wt 72.6 kg
[~2019-08-15 15:12] MED LIST changes: +ALBU0.0912 IH; +FURO-570 PO; -FURO-572 PO; +GABA300C PO
[2019-08-15 15:27] VITALS: BP 182/99
--- NOTE | 2019-08-15 15:52 | NUR ---
BLOOD COLLECTED AND WALKED OVER TO LAB BY
[2019-08-15 15:59] LABS: BASOPHILS # (AUTO) 0.1 K/uL (0.00-0.22); BASOPHILS % (AUTO) 0.6 % (0.0-2.0); EOSINOPHILS # (AUTO) 0.3 K/uL (0-0.4); HEMATOCRIT 36.4 % (36-48); HEMOGLOBIN 11.6 g/dL (12.0-16.0); LYMPHOCYTES # (AUTO) 1.4 K/uL (2.5-16.5); LYMPHOCYTES % (AUTO) 15.9 % (20.5-51.1); MEAN CORPUSCULAR HEMOGLOBIN 26 pg (27-31); MEAN CORPUSCULAR HGB CONC 32 g/dL (33-37); MEAN CORPUSCULAR VOLUME 79.9 fL (80-94); MONOCYTES # (AUTO) 0.5 K/uL (0.8-1.0); MONOCYTES % (AUTO) 5.7 % (1.7-9.3); NEUTROPHILS # (AUTO) 6.4 K/uL (1.8-7.7); NEUTROPHILS % (AUTO) 74.8 % (42.2-75.2); PLATELET COUNT (AUTO) 226 K/uL (140-450); RED BLOOD CELL COUNT(AUTO) 4.55 MIL/uL (4.20-5.40); RED CELL DISTRIBUTION WIDTH 15.4 % (11.6-13.7); WHITE BLOOD COUNT (AUTO) 8.6 K/uL (4.8-10.8)
[2019-08-15 16:14] LABS: ANION GAP 12.1 (8-16); CARBON DIOXIDE 24.1 mmol/L (21-32); CREATININE 2.8 mg/dL (0.6-1.3); POTASSIUM 3.2 mmol/L (3.5-5.1)
--- NOTE | 2019-08-15 17:02 | NUR ---
53F brought in by ems from home s/p argument with daughter pt a near syncope episode with mechanical fall x today c/o left shoulder pain ----no abrasion or discoloration hx---chf, htn, dm, angina, neuropathy rx---metoprolol, gabapentin, losartan, simvastatin, lisopril, lasix
--- NOTE | 2019-08-15 17:14 | NUR ---
DR. GARCIA EVALUATING PT AT BEDSIDE.
[2019-08-15] MEDS ORDERED: ASPIRIN 81 MG TAB.CHEW PO ONE (17:20)
[2019-08-15] MEDS ORDERED: FUROSEMIDE 40 MG/4 ML VIAL IVP ONE (17:20)
[2019-08-15] MEDS ORDERED: MORPHINE SULFATE 2 MG/ML SYR IVP ONE (17:20)
[2019-08-15] MEDS ORDERED: NITROGLYCERIN 2% 1 GM PKT TP ONE (17:20)
[2019-08-15] MEDS ORDERED: DEXTROSE 50% 50 ML SYR IVP PRN (18:05)
[2019-08-15] MEDS ORDERED: hydrALAZINE 20 MG/ML VIAL IVP PRN (18:05)
[2019-08-15 18:08] LABS: APPEARANCE,URINE CLEAR (CLEAR); BILIRUBIN,URINE NEGATIVE (NEGATIVE); BLOOD, URINE 2+ (NEGATIVE); COLOR,URINE YELLOW (YELLOW); LEUKOCYTE ESTERASE ,URINE NEGATIVE (NEGATIVE); NITRITE, URINE NEGATIVE (NEGATIVE); UGLUCOSE 3+ (NEGATIVE)
[2019-08-15] MEDS ORDERED: MORPHINE SULFATE 4 MG/ML SYR IVP PRN (18:10)
[2019-08-15] MEDS ORDERED: HYDROcodone/APAP 5/325 MG 1 TAB TAB PO PRN (18:10)
[2019-08-15] MEDS ORDERED: ONDANSETRON 4 MG/2 ML VIAL IVP PRN (18:10)
[2019-08-15] MEDS ORDERED: ACETAMINOPHEN 325 MG TAB PO PRN (18:10)
[2019-08-15] MEDS ORDERED: ALBUTEROL 0.083% 2.5 MG/3 ML NEBU IH PRN (18:10)
[2019-08-15] MEDS ORDERED: BECL10.62 IH (18:30)
[2019-08-15] MEDS ORDERED: PRON INH (18:30)
[2019-08-15] MEDS ORDERED: HUM7525 SUBQ (18:35)
--- NOTE | 2019-08-15 19:30 | NUR ---
RECEIVED PT FROM ER VIA [facility] BY CRYSTAL GARCIA PT IS AAOX4 HL ON RT AC PATENT ON TELEMETRY SR, NOT SOB NOTED , PT HAS HX RT EYE RETINOPATHY , MRSA NARES PROTOCOL TAKEN AND SENT TO LAB . PT IS ORIENTED TO THE [facility] WITHIN REACH
--- NOTE | 2019-08-15 19:40 | NUR ---
Patient will be admitted to care of DR. JETT. Admited to TELE . Will go to room 125A. Belongings list completed. Report to DANIEL GARCIA.
[2019-08-15 20:00] VITALS: BP 177/79
[2019-08-15 20:01] LABS: RBC,URINE 0-5 /HPF (0-5); WBC,URINE 0-5 /HPF (0-5)
--- NOTE | 2019-08-15 20:30 | NUR ---
RECEIVED PATIENT ON ROOM AIR, PULSE OX SAT 99%. PATIENT DENIES FEELING ANY SOB AT THIS TIME. PRN BREATHING TREATMENT NOT INDICATED. EXPLAINED MEDICATION FREQUENCY TO PATIENT; PATIENT ACKNOWLEDGES UNDERSTANDING. NO ACUTE RESPIRATORY DISTRESS NOTED AT THIS TIME. WILL CONTINUE TO MONITOR.
[2019-08-15] MEDS ORDERED: SIMVASTATIN 20 MG TAB PO SCH (21:00)
[2019-08-15] MEDS: FUROSEMIDE 40 MG/4 ML VIAL IVP SCH (21:16)
[2019-08-15] MEDS: INSULIN LISPRO SLIDING SCALE 100 UNITS/ML VIAL SUBQ PRN (21:20)
[2019-08-15] MEDS: BLOOD GLUCOSE MONITORING 1 DEV DEV FS SCH (21:21)
[2019-08-15] MEDS: METOPROLOL 25 MG TAB PO SCH (21:25)
[2019-08-15] MEDS: LOSARTAN 25 MG TAB PO SCH (21:27)
--- NOTE | 2019-08-15 21:30 | NUR ---
PT BLOOD SUGAR TEST 352 AND WE GIVE HUMALOG SUB Q 10 UNITS FOLLOW PROTOCOL AND SNCK WAS GIVING TO
--- NOTE | 2019-08-15 23:17 | NUR ---
PATIENT COMPLAINS OF FEELING SHORT OF BREATH. PRN BREATHING TREATMENT ADMINISTERED. POST TX, PATIENT STATES TO BE "FEELING BETTER". NO ACUTE DISTRESS NOTED. WILL CONTINUE TO MONITOR.
[2019-08-16] VITALS: BP 118/62
--- NOTE | 2019-08-16 01:30 | NUR ---
PT. TRANSFERRED TO 117 FOR HX OF MRSA OF THE NARES.
--- NOTE | 2019-08-16 04:00 | NUR ---
PT REMAIN STBLE SLEEPING NOT DISTRESS NOTED ON TELEMETRY SR,
[2019-08-16 04:38] VITALS: BP 140/71
[2019-08-16] MEDS: BLOOD GLUCOSE MONITORING 1 DEV DEV FS SCH ×2 (06:53→11:30)
[2019-08-16] MEDS: INSULIN LISPRO SLIDING SCALE 100 UNITS/ML VIAL SUBQ PRN (06:56)
--- NOTE | 2019-08-16 06:56 | NUR ---
PT SLEEPING, NOT SIGNS OF DISTRESS NOTED PT WILL ENDORSED TO DAY SHIFT NURSE FOR CONTINUE OF CARE
--- NOTE | 2019-08-16 07:15 | NUR ---
Received report from financial administration officer nurse Amanda for continuity of care. Patient in stable condition. Respirations even and unlabored. IV access patent and intact. Safety measures in place. Bed in low position. Call light at bedside. Bed alarm on. Will continue to monitor.
[2019-08-16 08:00] VITALS: BP 137/65
[2019-08-16 08:04] LABS: BASOPHILS # (AUTO) 0.1 K/uL (0.00-0.22); BASOPHILS % (AUTO) 0.8 % (0.0-2.0); EOSINOPHILS # (AUTO) 0.4 K/uL (0-0.4); EOSINOPHILS % (AUTO) 5.9 % (0.0-4.0); HEMATOCRIT 29.8 % (36-48); HEMOGLOBIN 9.6 g/dL (12.0-16.0); LYMPHOCYTES # (AUTO) 1.6 K/uL (2.5-16.5); LYMPHOCYTES % (AUTO) 21.2 % (20.5-51.1); MEAN CORPUSCULAR HEMOGLOBIN 26 pg (27-31); MEAN CORPUSCULAR HGB CONC 32 g/dL (33-37); MEAN CORPUSCULAR VOLUME 79.6 fL (80-94); MONOCYTES # (AUTO) 0.5 K/uL (0.8-1.0); MONOCYTES % (AUTO) 6.3 % (1.7-9.3); NEUTROPHILS # (AUTO) 5.1 K/uL (1.8-7.7); NEUTROPHILS % (AUTO) 65.8 % (42.2-75.2); PLATELET COUNT (AUTO) 203 K/uL (140-450); RED BLOOD CELL COUNT(AUTO) 3.75 MIL/uL (4.20-5.40); RED CELL DISTRIBUTION WIDTH 15.9 % (11.6-13.7); WHITE BLOOD COUNT (AUTO) 7.7 K/uL (4.8-10.8)
--- NOTE | 2019-08-16 08:15 | NUR ---
PATIENT HAS BEEN SCREENED AND CATEGORIZED MODERATE NUTRITION RISK. PATIENT WILL BE SEEN WITHIN 3-5 DAYS OF ADMISSION. 08/18/19 08/20/[address]
[2019-08-16 08:34] LABS: PHOSPHORUS 4.3 mg/dL (2.5-4.9)
[2019-08-16 08:40] LABS: ANION GAP 10.9 (8-16); CARBON DIOXIDE 24.6 mmol/L (21-32); POTASSIUM 3.5 mmol/L (3.5-5.1)
[2019-08-16] MEDS: FUROSEMIDE 40 MG/4 ML VIAL IVP SCH (08:51)
[2019-08-16] MEDS: METOPROLOL 25 MG TAB PO SCH (08:52)
[2019-08-16] MEDS: LOSARTAN 25 MG TAB PO SCH (08:52)
[2019-08-16] MEDS ORDERED: GABAPENTIN 300 MG CAP PO SCH (09:00)
[2019-08-16] MEDS ORDERED: INSULIN LANTUS 100 UNITS/ML 10 ML VIAL SUBQ SCH (09:00)
[2019-08-16] MEDS ORDERED: INSULIN GLARGINE HUM REC ANLOG 60 UNIT SQ SCH (09:00)
[2019-08-16] MEDS ORDERED: ASPIRIN 81 MG TAB.CHEW PO SCH (09:00)
--- NOTE | 2019-08-16 09:05 | NUR ---
Gave ordered due medications. Patient tolerated well. Bed in low position. Call light at bedside. Bed alarm on. Will continue to monitor.
[2019-08-16] MEDS ORDERED: INSULIN LISPRO SUBQ SCH (10:05)
[2019-08-16] MEDS ORDERED: [UNRECOGNIZED DRUG - OTHER] SUBQ SCH (10:05)
--- NOTE | 2019-08-16 11:30 | NUR ---
Patient refused blood sugar testing due to discharge preparation.
[2019-08-16 12:00] VITALS: BP 128/65
--- NOTE | 2019-08-16 13:30 | NUR ---
PT GETTING DRESS IN PREPARATION FOR DISCHARGE. WILL CONTINUE TO MONITOR.
--- NOTE | 2019-08-16 14:30 | NUR ---
GAVE DISCHARGE INSTRUCTIONS PT VERBALIZED UNDERSTANDING. REMOVED IV, LUMEN INTACT. REMOVED ID BAND. PT WHEELED TO LOBBY IN STABLE CONDITION WHERE FAMILY HAS VEHICLE.
--- NOTE | 2019-08-24 14:54 | NUR ---
CONTACTED PATIENT'S PCP OFFICE DR. LOWERY AT [phone], ABLE TO SPEAK TO REAGAN REGARDING POST DISCHARGE APPOINTMENT. SHE PROVIDED ME WITH AUG 29, 2019 AT 2PM. ADDRESS TO THE CLINIC IS [address] [place] [id number]. CONTACTED PATIENT AT [phone], ABLE TO SPEAK TO RISA PATIENT'S DAUGHTER, ABLE TO VERBALIZE UNDERSTANDING.
== END 2019-08-16 14:30 | disposition home or self-care (01) | DRG 194 ==
LOC: MED 15:12 → MMU 18:10 → MTU 08-16 01:30
PROVIDERS: ADMIT Internal Medicine Pulmonary Disease; ATTEND Internal Medicine Pulmonary Disease
DX: I13.0 Hypertensive heart and chronic kidney disease with heart failure and stage 1 through stage 4 chronic kidney disease, or unspecified chronic kidney disease (principal); E11.22 Type 2 diabetes mellitus with diabetic chronic kidney disease; N18.4 Chronic kidney disease, stage 4 (severe); E11.319 Type 2 diabetes mellitus with unspecified diabetic retinopathy without macular edema; I50.43 Acute on chronic combined systolic (congestive) and diastolic (congestive) heart failure; E11.65 Type 2 diabetes mellitus with hyperglycemia; J44.9 Chronic obstructive pulmonary disease, unspecified; M47.812 Spondylosis without myelopathy or radiculopathy, cervical region; Z79.899 Other long term (current) drug therapy; Z87.891 Personal history of nicotine dependence
CPT/HCPCS: 36415; 71045; 73000; 73030; 80048; 81001; 82948; 83735; 83880; 84100; 84484; 85025; 87081; 93005; 96374; 96375; 99285; J0360; J1644; J1815; J1940; J2270; J7613

== ENCOUNTER 2019-09-01 08:06 | Inpatient (IN) | payer OTHER ==
[~2019-09-01] VITALS: Ht 157.5 cm; Wt 72.6 kg
[~2019-09-01 08:06] MED LIST changes: -ALBU0.0912 IH; +BECL10.62 IH; +HUM7525 SUBQ; -INSU100I7 SQ; +PRON INH; -TIOT4MIS2 IH
[2019-09-01 08:10] VITALS: BP 199/115
[2019-09-01] MEDS ORDERED: ONDANSETRON 4 MG/2 ML VIAL IVP ONE (08:45)
[2019-09-01] MEDS ORDERED: ENALAPRILAT 2.5 MG/2 ML VIAL IVP ONE (08:45)
[2019-09-01] MEDS ORDERED: ALBUTEROL 0.083% 2.5 MG/3 ML NEBU INH ONE (08:45)
[2019-09-01] MEDS ORDERED: IPRATROPIUM 0.02% 0.5 MG/2.5 ML NEBU INH ONE (08:45)
--- NOTE | 2019-09-01 09:00 | NUR ---
PT PRESENTS TO ED FRO EVALUATION OF N/V SINCE YESTERDAY. PT STATED BEEN SICK AND CHILLS X 3 DAYS. PT AAO X4, GCS 15, ABLE TO SPEAK WITH SHORT SENTENCES DUE TO SOB. RESPIATION EVEN AND UNLABORED, TACHYNIC RR 30'S, O2 SAT 89 ROOM AIR. PACED PT ON O2 2L/M VIA NC, O2 SAT 93-96%. BL LUNG CRACKLE. SKIN WARM/PALE/DRY, PULSES PRESENT. NOTED BLE +2 EDEMA. RT LEG CHRONIC WOUND. ABDOMEN SOFT, NON DISTENDED, ACTIVE BOWEL SOUND X4. COPY SUPERVISOR ST HR 100'S, HYPERTENSIVE. STATED HEADACHE 5/10. MADE AWARE OF PT STATUS. WILL CONTINUE TO MONITOR
--- NOTE | 2019-09-01 09:03 | NUR ---
ABG COMPLETED APLLIED PRESSURE TO PUNCTURE SITE NO ADVERSE REACTIONS NOTED
--- NOTE | 2019-09-01 09:05 | NUR ---
HHN THERAPY AND RESPIRATORY DRUG GIVEN ORDERED
[2019-09-01] MEDS ORDERED: AZITHROMYCIN 500 MG in DEXTROSE 5% 250 ML IV ONE (09:10)
--- NOTE | 2019-09-01 09:12 | NUR ---
CALLED DR. MONA CARRILLO [phone] TO REVIEW ABG SAMPLE REPORT NO NEW ORDERS
[2019-09-01 09:21] LABS: BASOPHILS # (AUTO) 0.1 K/uL (0.00-0.22); BASOPHILS % (AUTO) 0.5 % (0.0-2.0); EOSINOPHILS # (AUTO) 0.2 K/uL (0-0.4); EOSINOPHILS % (AUTO) 2.1 % (0.0-4.0); HEMATOCRIT 32.6 % (36-48); HEMOGLOBIN 10.6 g/dL (12.0-16.0); LYMPHOCYTES # (AUTO) 0.5 K/uL (2.5-16.5); LYMPHOCYTES % (AUTO) 4.8 % (20.5-51.1); MEAN CORPUSCULAR HEMOGLOBIN 26 pg (27-31); MEAN CORPUSCULAR HGB CONC 33 g/dL (33-37); MEAN CORPUSCULAR VOLUME 78.9 fL (80-94); MONOCYTES # (AUTO) 0.3 K/uL (0.8-1.0); MONOCYTES % (AUTO) 3.1 % (1.7-9.3); NEUTROPHILS # (AUTO) 9.2 K/uL (1.8-7.7); NEUTROPHILS % (AUTO) 89.5 % (42.2-75.2); PLATELET COUNT (AUTO) 226 K/uL (140-450); RED BLOOD CELL COUNT(AUTO) 4.13 MIL/uL (4.20-5.40); RED CELL DISTRIBUTION WIDTH 15.2 % (11.6-13.7); WHITE BLOOD COUNT (AUTO) 10.2 K/uL (4.8-10.8)
[2019-09-01] MEDS ORDERED: cefTRIAXone 1,000 MG VIAL ONE (09:23)
[2019-09-01] MEDS ORDERED: AZITHROMYCIN 500 MG INJ VIAL IV ONE (09:24)
[2019-09-01] MEDS ORDERED: NACL 0.9% 1,000 ML IV ONE (09:35)
[2019-09-01 09:41] LABS: ALBUMIN 1.9 g/dL (3.4-5.0); ANION GAP 16.9 (8-16); CARBON DIOXIDE 20.9 mmol/L (21-32); CREATININE 3.1 mg/dL (0.6-1.3); POTASSIUM 3.8 mmol/L (3.5-5.1); PROTHROMBIN TIME 9.2 secs (10.8-13.4); TOTAL BILIRUBIN 0.3 mg/dL (0.0-1.0)
[2019-09-01] MEDS ORDERED: ASPIRIN 81 MG TAB.CHEW PO ONE (10:00)
[2019-09-01] MEDS ORDERED: TIOT4MIS2 IH (10:18)
[2019-09-01] MEDS ORDERED: ALBU0.0912 IH (10:18)
--- NOTE | 2019-09-01 11:03 | NUR ---
PT REMAINS GCS 15, RESPIRATIONS EVEN AND UNLABORED, TACHYNIC RR20'S, O2 SAT WNL ON 2L/M VIA NC. EARLY BREASTFEEDING CARE SPECIALIST ST HR 100'S, BP STABLE. WILL CONTINUE TO MONITOR
[2019-09-01 11:07] LABS: APPEARANCE,URINE CLEAR (CLEAR); BILIRUBIN,URINE NEGATIVE (NEGATIVE); BLOOD, URINE 2+ (NEGATIVE); COLOR,URINE YELLOW (YELLOW); LEUKOCYTE ESTERASE ,URINE NEGATIVE (NEGATIVE); NITRITE, URINE NEGATIVE (NEGATIVE); PH,URINE 6.5 (5.0-9.0); UGLUCOSE 3+ (NEGATIVE)
[2019-09-01] MEDS ORDERED: LORazepam 2 MG/ML VIAL IVP PRN (11:10)
[2019-09-01] MEDS ORDERED: hydrALAZINE 20 MG/ML VIAL IVP PRN (11:10)
[2019-09-01] MEDS ORDERED: INSULIN REGULAR, HUMAN 100 UNIT/ML VIAL IV SCH (11:10)
[2019-09-01] MEDS ORDERED: ALBUTEROL 0.083% 2.5 MG/3 ML NEBU IH PRN (11:10)
[2019-09-01] MEDS ORDERED: DEXTROSE 50% 50 ML SYR IVP PRN (11:15)
[2019-09-01] MEDS ORDERED: ACETAMINOPHEN EXTRA STRENGTH 500 MG TAB PO SCH (11:30)
--- NOTE | 2019-09-01 11:32 | NUR ---
PT STATED CONSTANT HEADACHE 05/18, MADE AWARE.
[2019-09-01 12:01] LABS: WBC,URINE 0-5 /HPF (0-5)
[2019-09-01] MEDS: BLOOD GLUCOSE MONITORING 1 DEV DEV FS SCH ×3 (12:15→20:28)
--- NOTE | 2019-09-01 13:10 | NUR ---
PT REMAINS GCS 15, RESPIATIONS EVEN AND UNLABORED, TACHYPNIC RR 30'S. PT REFUSED LUNCH AT THIS TIME. FOOD AND BEVERAGE MANAGER SR, BP WNL, AFEBRILE. WILL CONTINUE TO MONITOR
[2019-09-01] MEDS: LACTATED RINGERS 1,000 ML IV SCH ×2 (13:17→23:54)
[2019-09-01] MEDS: MORPHINE SULFATE 4 MG/ML SYR IVP PRN (14:05)
--- NOTE | 2019-09-01 14:08 | NUR ---
RT called for scheduled breathing treatmeent.
[2019-09-01] MEDS: ALBUTEROL 0.083% 2.5 MG/3 ML NEBU IH SCH ×2 (14:11→23:43)
[2019-09-01] MEDS: IPRATROPIUM 0.02% 0.5 MG/2.5 ML NEBU IH SCH ×2 (14:11→23:43)
--- NOTE | 2019-09-01 14:11 | NUR ---
PATIENT ON TELEMETRY HOLD HHN THERAPY AND RESPIRATORY DRUG GIVEN IN ER-12
--- NOTE | 2019-09-01 14:45 | NUR ---
Patient will be admitted to care of . Admited to TELEMETRY. Will go to [id number]. Belongings list completed. Report to GRACE GARCIA.
--- NOTE | 2019-09-01 15:00 | NUR ---
RECEIVED PATIENT FROM ER NURSE ISABELL. PATIENT IS FULL CODE, NKA. PATIENT IS AAOX4, ON 2L NC, AMBULATORY WITH WALKER. IV TO LEFT AC 20G, SKIN IS NON-INTACT. PATIENT HAS A DM ULCER TO RIGHT LOWER EXTREMITY. PATIENT IS ON TELE, SINUS TACHY. ADMITTING STRIP IS SINUS TACHY HR 102. WILL CONTINUE [facility] PLAN OF CARE
[2019-09-01] MEDS ORDERED: amLODIPine 5 MG TAB PO SCH (16:00)
--- NOTE | 2019-09-01 17:00 | NUR ---
ADMINISTERED EVENING BP MEDICATION. PATIENT IS RESTING IN BED, NO COMPLAINTS AT THIS TIME. WILL ENDORSE TO BACK ORDER CLERK FOR CONTINUITY OF CARE.
[2019-09-01] MEDS: INSULIN LISPRO SLIDING SCALE 100 UNITS/ML VIAL SUBQ PRN ×2 (17:09→20:35)
[2019-09-01] MEDS: METOPROLOL 50 MG TAB PO SCH ×2 (17:15→23:54)
--- NOTE | 2019-09-01 19:07 | NUR ---
REPORT RECEIVED FROM AM NURSE AT BEDSIDE. PT IN STABLE CONDITION. AAOX4. INTRODUCED SELF TO PT AND FAMILY. BOARD UPDATED. NO COMPLAINTS OF PAIN. NO SOB. AFEBRILE. PT IS AMBULATORY WITH A WALKER. IV SITE L AC 22G RUNNING LR@80ML/HR PATENT AND INTACT. SKIN WARM, DRY, AND NOT INTACT DUE TO A DIABETIC FOOT ULCER. BED LOCKED IN LOW POSITION. CALL CHACON WITHIN REACH. SAFETY PRECAUTION IN PLACE. ALL NEEDS MET AT THIS TIME.
[2019-09-01 20:00] VITALS: BP 145/79
--- NOTE | 2019-09-01 20:28 | NUR ---
NEURONTIN AND ZOCOR GIVEN PO. ZOSYN HUNG AND RUNNING. BS 178. 3 UNITS OF HUMALOG GIVEN SUBQ. ZOFRAN GIVEN FOR NAUSEA. PT TOLERATED WELL.
[2019-09-01] MEDS: SIMVASTATIN 20 MG TAB PO SCH (20:29)
[2019-09-01] MEDS: GABAPENTIN 300 MG CAP PO SCH (20:29)
[2019-09-01] MEDS: ONDANSETRON 4 MG/2 ML VIAL IVP PRN (20:29)
[2019-09-01] MEDS: PIPERACILLIN/TAZOBACTAM 2.25 GM in DEXTROSE 5% 50 ML IV SCH (20:30)
[2019-09-01] MEDS ORDERED: INSULIN LISPRO SUBQ SCH (21:00)
[2019-09-01] MEDS ORDERED: [UNRECOGNIZED DRUG - OTHER] SUBQ SCH (21:00)
[2019-09-01] MEDS ORDERED: INSULIN LISPRO 100 UNITS/ML VIAL SUBQ SCH (21:00)
--- NOTE | 2019-09-01 21:28 | NUR ---
CALLED TO VERIFY WITH MD MEDICATION ORDER OF HUMALOG 30 UNITS FOR PT BS OF 178. MD STATED HE FOLLOWED THE LIST OF HOME MEDS. LIST OF HOME MEDS SHOWED THAT PT IS ON HUMALOG 75/25 MIX AND THAT IS NOT AVAILABLE HERE AT THE HOSPITAL. MD ORDERED TO FOLLOW THE HOME MED LIST. CALLED PHARMACY TO REVERIFY THE MEDICATIONS. PHARMACY SAID TO STOP THAT MEDICATION THAT IS IN ERROR. MEDICATION STOPPED AND WILL RECONFIRM WITH MD AND PHARMACIST TOMORROW.
--- NOTE | 2019-09-01 22:00 | NUR ---
PT SLEEPING COMFORTABLY BUT AROUSABLE. NO S/S OF DISTRESS NOTED. WILL CONTINUE TO MONITOR.
[2019-09-01] MEDS: BUDESONIDE 0.5 MG/2 ML NEBU INH SCH (23:44)
--- NOTE | 2019-09-01 23:54 | NUR ---
LOPRESSOR GIVEN PO. PT TOLERATED WELL.
[2019-09-02] VITALS: BP 129/71
--- NOTE | 2019-09-02 01:35 | NUR ---
PT SLEEPING COMFORTABLY BUT AROUSABLE. NO S/S OF DISTRESS NOTED. WILL CONTINUE TO MONITOR.
[2019-09-02] MEDS: ALBUTEROL 0.083% 2.5 MG/3 ML NEBU IH SCH ×4 (02:51→19:56)
[2019-09-02] MEDS: IPRATROPIUM 0.02% 0.5 MG/2.5 ML NEBU IH SCH ×4 (02:53→19:56)
--- NOTE | 2019-09-02 03:15 | NUR ---
PT SLEEPING COMFORTABLY BUT AROUSABLE. NO S/S OF DISTRESS NOTED. NO COMPLAINTS OF PAIN. NO SOB. AFEBRILE. WILL CONTINUE TO MONITOR.
[2019-09-02 04:00] VITALS: BP 123/65
[2019-09-02] MEDS: PIPERACILLIN/TAZOBACTAM 2.25 GM in DEXTROSE 5% 50 ML IV SCH ×3 (04:31→21:00)
--- NOTE | 2019-09-02 04:31 | NUR ---
DOROTEO HUNG AND RUNNING. PT TOLERATING WELL.
--- NOTE | 2019-09-02 04:50 | NUR ---
MD NOTIFIED OF PATIENT O2 DESATURATION. ORDERED ABG ON ROOM AIR. O2 ORDER FOR 4L O2 VIA NC. PT ALSO FEBRILE. TYL 650MG PO Q4H PRN FOR FEVER/HEADACHE. TORB.
[2019-09-02] MEDS: ACETAMINOPHEN 325 MG TAB PO PRN (05:15)
[2019-09-02] MEDS: METOPROLOL 50 MG TAB PO SCH ×3 (05:15→18:00)
--- NOTE | 2019-09-02 05:15 | NUR ---
TYL GIVEN FOR FEVER OF 100.2. PT TOLERATED WELL.
[2019-09-02] MEDS: BLOOD GLUCOSE MONITORING 1 DEV DEV FS SCH ×4 (05:21→20:58)
--- NOTE | 2019-09-02 05:21 | NUR ---
BS 154.
--- NOTE | 2019-09-02 05:40 | NUR ---
CALLED [facility] AND WAS PUT STRAIGHT THROUGH TO DR. HOLDER. GAVE HIM THE RESULTS OF THE ABG. PH [phone]. CO2 29.3. PO2 47.0. BICARB OF 17. OXYHEMOGLOBIN OF 83.9. MD TOLD ME TO PUT PATIENT ON FACEMASK OR VENTURI MASK@50%. RECOMMENDED BIPAP BUT MD REFUSED AND SAID TO PUT HER ON FACEMASK BECAUSE THE BIPAP WILL NOT HELP. WILL NOTIFY RT OF MD ORDER FOR MASK.
--- NOTE | 2019-09-02 05:40 | NUR ---
CRITICAL LAB VALUES CALLED IN TO
[2019-09-02] MEDS: INSULIN LISPRO SLIDING SCALE 100 UNITS/ML VIAL SUBQ PRN ×3 (06:11→21:07)
--- NOTE | 2019-09-02 06:11 | NUR ---
3 UNITS OF HUMALOG GIVEN SUBQ.
[2019-09-02 06:47] LABS: BASOPHILS % (AUTO) 0.4 % (0.0-2.0); EOSINOPHILS % (AUTO) 0.2 % (0.0-4.0); HEMATOCRIT 27.6 % (36-48); LYMPHOCYTES # (AUTO) 0.7 K/uL (2.5-16.5); LYMPHOCYTES % (AUTO) 7.4 % (20.5-51.1); MEAN CORPUSCULAR HEMOGLOBIN 26 pg (27-31); MEAN CORPUSCULAR HGB CONC 33 g/dL (33-37); MEAN CORPUSCULAR VOLUME 79.2 fL (80-94); MONOCYTES # (AUTO) 0.3 K/uL (0.8-1.0); MONOCYTES % (AUTO) 3.3 % (1.7-9.3); NEUTROPHILS # (AUTO) 8.3 K/uL (1.8-7.7); NEUTROPHILS % (AUTO) 88.7 % (42.2-75.2); PLATELET COUNT (AUTO) 184 K/uL (140-450); RED BLOOD CELL COUNT(AUTO) 3.49 MIL/uL (4.20-5.40); RED CELL DISTRIBUTION WIDTH 15.2 % (11.6-13.7); WHITE BLOOD COUNT (AUTO) 9.3 K/uL (4.8-10.8)
--- NOTE | 2019-09-02 07:51 | NUR ---
REPORT RECEIVED FROM NIGHT RN AT BEDSIDE. PT IN STABLE CONDITION. AAOX4. INTRODUCED SELF TO PT AND FAMILY. BOARD UPDATED. NO COMPLAINTS OF PAIN. NO SOB. AFEBRILE. PT IS AMBULATORY WITH A WALKER. IV SITE L AC 22G RUNNING LR@80ML/HR PATENT AND INTACT. SKIN WARM, DRY, AND NOT INTACT DUE TO A DIABETIC FOOT ULCER ON RIGHT MEDIAL SIDE OF RIGHT ANKLE. REVIEWED POC WITH PT AND PT VERBALIZED UNDERSTANDING. BED LOCKED IN LOW POSITION. CALL CHACON WITHIN REACH. SAFETY PRECAUTION IN PLACE. ALL NEEDS MET AT THIS TIME. WILL ROUND FREQUENTLY ON PT.
[2019-09-02 07:57] LABS: ALBUMIN 1.5 g/dL (3.4-5.0); ANION GAP 15.7 (8-16); CARBON DIOXIDE 19.5 mmol/L (21-32); CREATININE 3.7 mg/dL (0.6-1.3); MAGNESIUM 2.2 mg/dL (1.8-2.4); POTASSIUM 4.2 mmol/L (3.5-5.1); TOTAL BILIRUBIN 0.3 mg/dL (0.0-1.0)
[2019-09-02 08:00] VITALS: BP 103/54
[2019-09-02] MEDS: BUDESONIDE 0.5 MG/2 ML NEBU INH SCH ×2 (08:27→19:56)
[2019-09-02] MEDS: GABAPENTIN 300 MG CAP PO SCH ×2 (08:36→21:01)
[2019-09-02] MEDS: AZITHROMYCIN 500 MG in DEXTROSE 5% 250 ML IV SCH (08:36)
--- NOTE | 2019-09-02 08:47 | NUR ---
ADMINISTERED MORNING MEDS TO PT. PT TOLERATED MEDS WELL. PT ON VENTURI MASK @50%. PT TOLERATING WELL. O2 SAT AT 97%. WILL CONTINUE TO MONITOR PT CLOSELY.
[2019-09-02] MEDS: amLODIPine 5 MG TAB PO SCH (09:00)
[2019-09-02] MEDS ORDERED: LISINOPRIL 20 MG TAB PO SCH (09:00)
[2019-09-02] MEDS ORDERED: LOSARTAN 25 MG TAB PO SCH (09:00)
--- NOTE | 2019-09-02 09:07 | NUR ---
PATIENT HAS BEEN SCREENED AND CATEGORIZED MODERATE NUTRITION RISK. PATIENT WILL BE SEEN WITHIN 3-5 DAYS OF ADMISSION. 09/04/19 09/06/[address]
[2019-09-02] MEDS ORDERED: FUROSEMIDE 100 MG/10 ML VIAL IV SCH (09:44)
--- NOTE | 2019-09-02 10:35 | NUR ---
FERREIRA INSERTED PER MD ORDERS. PT TOLERATED WELL. WILL MONITOR URINE OUTPUT CAREFULLY.
--- NOTE | 2019-09-02 11:39 | NUR ---
PT SLEEPING. ALL NEEDS MET. WILL CONTINUE TO ROUND FREQUENTLY ON PT. BED IN LOW POSITION, CALL LIGHT WITHIN REACH. WILL CONTINUE TO ROUND FREQUENTLY ON PT.
[2019-09-02 12:00] VITALS: BP 177/66
[2019-09-02] MEDS ORDERED: FUROSEMIDE 100 MG/10 ML VIAL IVP SCH (13:20)
--- NOTE | 2019-09-02 13:32 | NUR ---
PT RESTING IN BED. ALL NEEDS MET. WILL CONTINUE TO ROUND FREQUENTLY ON PT. BED IN LOW POSITION, CALL LIGHT WITHIN REACH.
--- NOTE | 2019-09-02 15:42 | NUR ---
PT RESTING IN BED. ALL NEEDS MET. WILLCONTINUE TO ROUND FREQUENTLY ON PT
[2019-09-02 16:00] VITALS: BP 91/77
--- NOTE | 2019-09-02 17:29 | NUR ---
PT SLEEPING. TYLENOL GIVEN 10MINS AGO FOR FEVER OF 101.6. WILL REASSESS PT FOR MED EFFECTIVENESS.
--- NOTE | 2019-09-02 19:30 | NUR ---
RECEIVED BEDSIDE REPORT FROM AM SHIFT RN. PT LYING DOWN, ON MANAGER HOSPITALITY, HAS VENTURI MASK WITH 50%O2, EXHIBITING LABORED BREATHING, BUT PER PT, FEELS MUCH BETTER THAN PREVIOUS HOURS, HAS LEFT AC 20G SALINE LOCK. PT HAS RIGHT ANKLE PRESSURE ULCER WITH DRESSING, DRY AND INTACT. EXPLAINED TO PT THE BELLOWS ASSEMBLER ROUTINE, PT VERBALIZED UNDERSTANDING. WILL MONITOR PT THROUGHOUT SHIFT.
--- NOTE | 2019-09-02 19:40 | NUR ---
ENDORSED PT TO ICE GRINDER FOR CONTINUITY OF CARE. PT IN STABLE CONDITION AT THIS TIME.
[2019-09-02 20:00] VITALS: BP 99/55
[2019-09-02] MEDS: SIMVASTATIN 20 MG TAB PO SCH (21:01)
[2019-09-02] MEDS: SODIUM BICARBONATE 650 MG TAB PO SCH (21:01)
--- NOTE | 2019-09-02 21:01 | NUR ---
ADMINISTERED SCHEDULED PO AND IV ABX MEDICATIONS ORDERED. BLOOD GLUCOSE CHECKED AND CHARTED. ADMINISTERED SUBQ INSULIN PER SLIDING SCALE ORDERED. PT TOLERATED THEM WELL. PT EXHIBITING INCREASED LABORED BREATHING. RT AT BEDSIDE. WILL PUT PT ON BIPAP FOR THE NIGHT. WILL CONTINUE TO MONITOR PT.
--- NOTE | 2019-09-02 21:54 | NUR ---
2030 PATIENT IS SHORT OF BREATH. HHNTX GIVEN AND PLACED PT ON BIPAP. IPAP 10 EPAP 5 RR 12 FIO2 50%.
[2019-09-03] VITALS: BP 124/65
--- NOTE | 2019-09-03 | NUR ---
VS CHECKED AND CHARTED. ASSISTED PT FOR DRINK OF WATER. PT TOLERATED IT WELL. WILL CONTINUE TO MONITOR PT.
[2019-09-03] MEDS: METOPROLOL 50 MG TAB PO SCH ×4 (00:17→18:00)
[2019-09-03] MEDS: IPRATROPIUM 0.02% 0.5 MG/2.5 ML NEBU IH SCH ×4 (01:14→19:26)
[2019-09-03] MEDS: ALBUTEROL 0.083% 2.5 MG/3 ML NEBU IH SCH ×4 (01:14→19:26)
--- NOTE | 2019-09-03 02:30 | NUR ---
MA0DE ROUNDS. PT REQUESTED FOR SOME SIPS OF WATER. PT TOLERATED THE ACTIVITY WELL. PUT PT BACK ON BIPAP.
[2019-09-03 04:00] VITALS: BP 133/62
[2019-09-03] MEDS: PIPERACILLIN/TAZOBACTAM 2.25 GM in DEXTROSE 5% 50 ML IV SCH ×3 (04:47→20:40)
--- NOTE | 2019-09-03 04:47 | NUR ---
ADMINISTERED SCHEDULED IV ABX ORDERED. ASSISTED PT FOR SOME SIPS OF WATER, C/O DRY MOUTH. PT STATES CONDITION IS BETTER DUE TO THE BIPAP. PT SOILED LINENS, ASSISTED PT IN CHANGING LINENS. PT'S NEEDS MET, MADE PT COMFORTABLE. DENIES PAIN, SHORT OF BREATH AFTER THE ACTIVITY, PUT PT BACK ON BIPAP. WILL CONTINUE TO MONITOR PT.
--- NOTE | 2019-09-03 05:54 | NUR ---
PT LYING DOWN WITH NO SIGNS OF DISTRESS. PT STILL ON BIPAP. WILL ENDORSE TO AM SHIFT RN FOR PT'S CONTINUITY OF CARE.
[2019-09-03] MEDS: INSULIN LISPRO SLIDING SCALE 100 UNITS/ML VIAL SUBQ PRN ×2 (06:29→12:40)
[2019-09-03] MEDS: BLOOD GLUCOSE MONITORING 1 DEV DEV FS SCH ×4 (06:32→20:17)
--- NOTE | 2019-09-03 06:53 | NUR ---
RECEIVED PT ON TOUSSAINT V60 ON DOCUMENTED SETTINGS, ALARMS ARE ON AND AUDIBLE, PT IN HF ASLEEP WEARING F\F MASK SIZE LG , GEL UNDER MASK BS CRACKLES, HHNS GIVEN I\L CONT .POX IN PLACE, BIPAP PLUGGED INTO RED OUTLET
[2019-09-03] MEDS: BUDESONIDE 0.5 MG/2 ML NEBU INH SCH ×2 (07:07→19:26)
[2019-09-03 08:00] VITALS: BP 99/52
[2019-09-03 08:43] LABS: HEMATOCRIT 26.9 % (36-48); HEMOGLOBIN 8.7 g/dL (12.0-16.0); MEAN CORPUSCULAR HEMOGLOBIN 26 pg (27-31); MEAN CORPUSCULAR HGB CONC 32 g/dL (33-37); MEAN CORPUSCULAR VOLUME 79.4 fL (80-94); PLATELET COUNT (AUTO) 181 K/uL (140-450); RED BLOOD CELL COUNT(AUTO) 3.38 MIL/uL (4.20-5.40); RED CELL DISTRIBUTION WIDTH 15.7 % (11.6-13.7); WHITE BLOOD COUNT (AUTO) 11.8 K/uL (4.8-10.8)
[2019-09-03] MEDS: AZITHROMYCIN 500 MG in DEXTROSE 5% 250 ML IV SCH (09:00)
[2019-09-03 09:17] LABS: BASOPHILS % (MANUAL) 0 % (0-2); EOSINOPHILS % (MANUAL) 0 % (0-4); LYMPHOCYTES % (MANUAL) 5 % (20-46); MONOCYTES % (MANUAL) 3 % (5-12)
[2019-09-03 09:59] LABS: ANION GAP 16.5 (8-16); CARBON DIOXIDE 19.5 mmol/L (21-32); TOTAL BILIRUBIN 0.2 mg/dL (0.0-1.0)
[2019-09-03 10:00] LABS: ALBUMIN 1.3 g/dL (3.4-5.0)
[2019-09-03] MEDS: SODIUM BICARBONATE 650 MG TAB PO SCH ×2 (11:40→20:42)
[2019-09-03] MEDS: GABAPENTIN 300 MG CAP PO SCH ×2 (11:41→20:42)
[2019-09-03] MEDS: amLODIPine 5 MG TAB PO SCH (11:48)
[2019-09-03 11:58] LABS: CREATININE 5.3 mg/dL (0.6-1.3)
[2019-09-03 12:00] VITALS: BP 106/50
[2019-09-03] MEDS: ACETAMINOPHEN 325 MG TAB PO PRN (12:26)
[2019-09-03] MEDS: MORPHINE SULFATE 4 MG/ML SYR IVP PRN (15:43)
[2019-09-03 16:00] VITALS: BP 96/50
--- NOTE | 2019-09-03 16:00 | NUR ---
Received call from lab about creatinine, associate director of biostatistics crowd controller was called to report abnomal level and he stated he would come to see the patient in the evening. manager transfusion nurse was asked to follow up with associate director of biostatistics if he did not show up to check on her.
--- NOTE | 2019-09-03 18:00 | NUR ---
Recieved call from lab, pt is positive for MRSA in the nares. Charge nurse and incoming tuber machine operator helper nurse aware.
--- NOTE | 2019-09-03 19:30 | NUR ---
RECEIVED BEDSIDE REPORT FROM DAY RN. PT IS AAOX4 ON BIPAP RT AT BEDSIDE GIVING BREATHING TREATMENT. PER RT WILL PUT PT ON OXIMIZER. DX PNA PT WITH CRACKLES AND NO EDEMA ON LOW EXTREMITIES. IV ON LAC 20G IVF PER ORDERS. FERREIRA CATH NOTED DRAINING CLEAR YELLOW URINE. PT WITH DM ULCER ON MEDIAL R ANKLE COVERED WITH DRESSING. PER RN CRITICAL CREA 5.3 MD TO COME SEE PT. POC DISCUSSED WITH PT. CALL LIGHT IS WITHIN REACH. WILL CONTINUE TO MONITOR.
--- NOTE | 2019-09-03 19:40 | NUR ---
DR WESLEY IN TO SEE PT. MD PATIENT DOES NOT NEED DIALYSIS OF RIGHT NOW. THEY WILL MONITOR LABS AND PUT IN ORDER FOR LASIX ONCE. PT VERBALIZED UNDERSTANDING WILL CONTINUE TO MONITOR.
[2019-09-03 20:00] VITALS: BP 112/51
[2019-09-03] MEDS ORDERED: FUROSEMIDE 100 MG/10 ML VIAL IV SCH (20:30)
--- NOTE | 2019-09-03 20:40 | NUR ---
VS STABLE: 112/51 HR 80 RR 20 SAT 99& ON OXIMIZER 5L. MEREDITH MEDICATIONS GIVEN PER ORDERS. LASIX IVP GIVEN PER ORDERS. ALL NEEDS MET AT THIS TIME. CALL LIGHT IS WITHIN REACH.
[2019-09-03] MEDS: SIMVASTATIN 20 MG TAB PO SCH (20:41)
--- NOTE | 2019-09-03 22:00 | NUR ---
PATIENT IS RESTING COMFORTABLY IN BED NO S/S OF DISTRESS. REMAINS ON OXIMIZER 5L NO S/S OF RESPIRATORY DISTRESS. CALL LIGHT IS WITHIN REACH. WILL CONTINUE TO MONITOR.
[2019-09-04] VITALS: BP 101/56
--- NOTE | 2019-09-04 | NUR ---
VITAL SIGNS ARE WITHIN NORMAL LIMITS. MEREDITH MEDICATION HELD D/T LOW B/P 101/56 HR 74. PT IV INFILTRATED. IV CATH IS INTACT STARTED NEW IV ON R FA 24G ON FIRST ATTEMPT. PT TOLERATED WELL. ALL NEEDS MET AT THIS TIME. CALL LIGHT IS WITHIN REACH
--- NOTE | 2019-09-04 00:30 | NUR ---
PATIENT PLACED BACK ON BIPAP. SKIN PROTECTA-GEL IN PLACE. TOLERATING BIPAP WELL. NO ACUTE DISTRESS NOTED. WILL CONTINUE TO MONITOR.
[2019-09-04] MEDS: ONDANSETRON 4 MG/2 ML VIAL IVP PRN ×3 (01:15→17:12)
--- NOTE | 2019-09-04 01:15 | NUR ---
DRESSING CHANGED WITH MODERATE YELLOW DRAINAGE NOTED. WOUND CLEANED WITH NS AND CLEAN DRESSING APPLIED. PT DENIED PAIN. PT TOLERATED WELL. ALL NEEDS MET AT THIS TIME. CALL LIGHT IS WITHIN REACH.
[2019-09-04] MEDS: IPRATROPIUM 0.02% 0.5 MG/2.5 ML NEBU IH SCH ×4 (01:46→20:39)
[2019-09-04] MEDS: ALBUTEROL 0.083% 2.5 MG/3 ML NEBU IH SCH ×4 (01:46→20:39)
--- NOTE | 2019-09-04 02:00 | NUR ---
SCHEDULED BREATHING TREATMENT ADMINISTERED. TOLERATED TX WELL WITHOUT ADVERSE SIDE EFFECTS. NO ACUTE RESPIRATORY DISTRESS NOTED. WILL CONTINUE TO MONITOR.
--- NOTE | 2019-09-04 02:30 | NUR ---
PATIENT IS SLEEPING COMFORTABLY IN BED. CHEST RISE AND FALL. CALL LIGHT IS WITHIN REACH. WILL CONTINUE TO MONITOR.
[2019-09-04 04:00] VITALS: BP 124/67
--- NOTE | 2019-09-04 04:00 | NUR ---
VITAL SIGNS ARE WITHIN NORMAL LIMITS. ALL NEEDS MET AT THIS TIME. CALL LIGHT IS WITHIN REACH. WILL CONTINUE TO MONITOR.
[2019-09-04] MEDS: PIPERACILLIN/TAZOBACTAM 2.25 GM in DEXTROSE 5% 50 ML IV SCH ×3 (05:16→20:27)
[2019-09-04] MEDS: METOPROLOL 50 MG TAB PO SCH ×4 (05:26→17:01)
--- NOTE | 2019-09-04 05:39 | NUR ---
ADMINISTERED ZOFRAN FOR CC NAUSEA. PT TOLERATED WELL. ALL NEEDS MET AT THIS TIME. CALL LIGHT IS WITHIN REACH. WILL CONTINUE TO MONITOR.
[2019-09-04] MEDS: INSULIN LISPRO SLIDING SCALE 100 UNITS/ML VIAL SUBQ PRN ×3 (06:14→17:07)
[2019-09-04] MEDS: BLOOD GLUCOSE MONITORING 1 DEV DEV FS SCH ×4 (06:15→20:15)
[2019-09-04 06:27] LABS: BASOPHILS % (AUTO) 0.2 % (0.0-2.0); EOSINOPHILS # (AUTO) 0.1 K/uL (0-0.4); EOSINOPHILS % (AUTO) 1.1 % (0.0-4.0); HEMATOCRIT 26.4 % (36-48); HEMOGLOBIN 8.4 g/dL (12.0-16.0); LYMPHOCYTES # (AUTO) 0.8 K/uL (2.5-16.5); MEAN CORPUSCULAR HEMOGLOBIN 25 pg (27-31); MEAN CORPUSCULAR HGB CONC 32 g/dL (33-37); MEAN CORPUSCULAR VOLUME 79.1 fL (80-94); MONOCYTES # (AUTO) 0.4 K/uL (0.8-1.0); MONOCYTES % (AUTO) 3.5 % (1.7-9.3); NEUTROPHILS # (AUTO) 9.9 K/uL (1.8-7.7); PLATELET COUNT (AUTO) 180 K/uL (140-450); RED BLOOD CELL COUNT(AUTO) 3.34 MIL/uL (4.20-5.40); RED CELL DISTRIBUTION WIDTH 15.6 % (11.6-13.7); WHITE BLOOD COUNT (AUTO) 11.2 K/uL (4.8-10.8)
--- NOTE | 2019-09-04 06:38 | NUR ---
REC'D PT ON ALEXANDRA V60 BIPAP SETTING 10/ RR 12 FIO2 30% ALARMS ON AND AUDIBLE AND AMBU BAG AT SIDE OF BIPAP AND BIPAP IS PLUGGED INTO RED OUTLET, I\L TXS GIVEN WITH ALBUTEROL 2.5MG AND ATROVENT 0.5MG AND PULMICORT 0.5MG WITH NO ADVERSE REACTION POST TX, B\S ARE RALES BILATERALLY AND IS WEARING LARGE FACE MASK WITH PROTETIC GEL IN PLACE PT IS SLEEPING
[2019-09-04] MEDS: BUDESONIDE 0.5 MG/2 ML NEBU INH SCH ×2 (06:48→20:39)
[2019-09-04 06:51] LABS: ALBUMIN 1.2 g/dL (3.4-5.0); TOTAL BILIRUBIN 0.3 mg/dL (0.0-1.0)
--- NOTE | 2019-09-04 07:09 | NUR ---
GAVE BEDSIDE REPORT TO DAY RN. PT ENDORSED IN STABLE CONDITION
--- NOTE | 2019-09-04 07:10 | NUR ---
RECEIVED REPORT FROM BACKER UP NURSE. PT AROUSABLE TO NAME, ORIENTED X4, NO C/O PAIN AT THIS TIME. PT ON MEDIATOR. IV ON LT FA 24 GA ON TKO. RESPIRATIONS EVEN AND UNLABORED ON BIPAP TO KEEP O2 SAT ABOVE 88%. ABD SOFT, ACTIVE BS. F/C IN PLACE, DRAINING CLEAR AND YELLOW URINE. NOTED RT ANKLE WOUND DRESSING, CLEAN, DRY AND INTACT. PT ON FALL RISK PRECAUTIONS, SAFETY MEASURES IN PLACE, CALL LIGHT WITHIN REACH. REVIEWED POC WITH PT, PT VERBALIZED UNDERSTANDING.
[2019-09-04 07:25] LABS: POTASSIUM 3.9 mmol/L (3.5-5.1)
[2019-09-04 07:37] LABS: CARBON DIOXIDE 17.7 mmol/L (21-32); CREATININE 5.5 mg/dL (0.6-1.3)
[2019-09-04 07:38] LABS: ANION GAP 20.2 (8-16)
[2019-09-04 07:40] LABS: LYMPHOCYTES % (AUTO) 6.7 % (20.5-51.1); NEUTROPHILS % (AUTO) 88.5 % (42.2-75.2)
[2019-09-04 08:00] VITALS: BP 119/59
--- NOTE | 2019-09-04 08:30 | NUR ---
PT ASLEEP IN BED, RESTING IN SUPINE POSITIONS. LUNGS SOUNDS COARSE CRACKLES IN ANTERIOR AND POSTERIOR LOBES, DX PNA. RESPIRATIONS EVEN AND UNLABORED, PT IS ON BIPAP.
--- NOTE | 2019-09-04 10:11 | NUR ---
PT OFF BIPAP TO EAT PLACED ON 4L OXYMIZER PT AWAKE AND ALERT WITH NO SOB
[2019-09-04] MEDS: amLODIPine 5 MG TAB PO SCH (10:12)
[2019-09-04] MEDS: GABAPENTIN 300 MG CAP PO SCH ×2 (10:12→20:27)
[2019-09-04] MEDS: AZITHROMYCIN 500 MG in DEXTROSE 5% 250 ML IV SCH (10:12)
[2019-09-04] MEDS: SODIUM BICARBONATE 650 MG TAB PO SCH ×2 (10:12→20:27)
[2019-09-04] MEDS: MUPIROCIN CA NASAL 2% 1GM TUBE NS SCH (10:12)
--- NOTE | 2019-09-04 10:12 | NUR ---
ADMINISTERED MEDICATIONS PER ORDER, PT IS AWARE OF INDICATIONS AND POTENTIAL SIDE EFFECTS.
[2019-09-04] MEDS: CHLORHEXADINE GLUC 2% CLOTH TP SCH (10:13)
[2019-09-04 12:00] VITALS: BP 125/60
--- NOTE | 2019-09-04 12:00 | NUR ---
NOTED LEAKING TUBING OF F/C. DISCONTINUED F/C AT THIS TIME. WILL NOTIFY PHYSICIAN.
--- NOTE | 2019-09-04 12:15 | NUR ---
DR. TOMLINSON AT BEDSIDE, NOTIFIED PT REGARDING D/C OF F/C. PER PHYSICIAN, "DO STRAIGHT CATH IF PT CANNOT URINATE. IF PT REQUIRES 2 STRAIGHT CATHETERIZATION, REINSERT F/C." PT AWARE AND VERBALIZES UNDERSTANDING TO NOTIFY NURSE WHEN PT HAS TO VOID AND UNABLE TO. WILL CONTINUE TO MONITOR.
--- NOTE | 2019-09-04 13:00 | NUR ---
PT IS SITTING UP IN BED HAVING LUNCH, AT BEDSIDE. PT SHOWS NO SIGNS OF DISTRESS AT THIS TIME.
--- NOTE | 2019-09-04 15:00 | NUR ---
PT ASSISTED TO RESTROOM. VOIDED X1. NOTIFIED PT TO PEE IN [facility] FOR MONITORING OF URINE OUTPUT.
[2019-09-04 16:00] VITALS: BP 106/67
[2019-09-04] MEDS: MORPHINE SULFATE 2 MG/ML SYR IVP PRN (17:01)
--- NOTE | 2019-09-04 17:01 | NUR ---
ADMINISTERED MORPHINE FOR LEVEL 6/10 HEADACHE. WILL REASSESS WITHIN 1 HOUR.
--- NOTE | 2019-09-04 19:20 | NUR ---
ENDORSED PT TO DISC JOCKEY NURSE. PT HAS NO SIGNS OF DISTRESS AT THIS TIME.
--- NOTE | 2019-09-04 19:21 | NUR ---
RECEIVED BEDSIDE REPORT FROM DAY RN. PT IS AAOX4 ON OXIMIZER 5L SAT 100% BROUGHT HER DOWN TO 2L WILL MONITOR. PT HAS BIPAP MACHINE FOR PRN. DX PNA PT WITH CRACKLES AND NO EDEMA ON LOW EXTREMITIES. IV ON R FA 24G ON TKO. FERREIRA CATH D/C TODAY HAS VOIDED X2 SINCE THEN. PT WITH DM ULCER ON MEDIAL R ANKLE COVERED WITH DRESSING C/D/I. PER RN POC DISCUSSED WITH PT. CALL LIGHT IS WITHIN REACH. WILL CONTINUE TO MONITOR.
[2019-09-04 20:00] VITALS: BP 101/46
[2019-09-04] MEDS: SIMVASTATIN 20 MG TAB PO SCH (20:27)
--- NOTE | 2019-09-04 20:27 | NUR ---
VITAL SIGNS ARE WITHIN NORMAL LIMITS. MEREDITH MEDICATIONS GIVEN PER ORDERS. ASSISTED PT TO BEDSIDE COMMODE. PT TOLERATED WELL. RT AT BEDSIDE. CALL LIGHT IS WITHIN REACH. WILL CONTINUE TO MONITOR
--- NOTE | 2019-09-04 21:10 | NUR ---
RECEIVED PATIENT ON 3L OXYMIZER, PULE OX SAT 99%. SCHEDULED BREATHING TREATMENTS ADMINISTERED. TOLERATED TREATMENTS WELL WITHOUT ADVERSE SIDE EFFECTS. ORAL RINSE DONE POST TX. PATIENT DENIES SOB/USE OF BIPAP. NO ACUTE RESPIRATORY DISTRESS NOTED AT THIS TIME. WILL CONTINUE TO MONITOR
--- NOTE | 2019-09-04 21:30 | NUR ---
IV ON R FA INFILTRATED IV CATH IS INTACT. NEW IV STARTED ON R FA 24G ON FIRST ATTEMPT. PT TOLERATED WELL. ALL NEEDS MET AT THIS TIME. CALL LIGHT IS WITHIN REACH. WILL CONTINUE TO MONITOR.
--- NOTE | 2019-09-04 22:10 | NUR ---
PATIENT SPEAKING WITH DAUGHTER ON CELL PHONE. NO S/S OF DISTRESS. CALL LIGHT IS WITHIN REACH.
[2019-09-05] VITALS: BP 111/61
--- NOTE | 2019-09-05 00:30 | NUR ---
VITAL SIGNS ARE WITHIN NORMAL LIMITS. B/P 111/61 HR 72 HELD MEREDITH LOPRESSOR. CHANGED PATIENTS R ANKLE DRESSING MINIMAL YELLOW DRAINAGE SIZE OF A QUATER NOTED. PT DENIES PAIN. WOUND CLEANED WITH NS AND OPTIFOAM APPLIED. DRESSING DATE, TIME AND INITIAL. PICTURE TAKEN AND PLACED IN CHART. PT TOLERATED WELL. CALL LIGHT IS WITHIN REACH. WILL CONTINUE TO MONITOR.
[2019-09-05] MEDS: ONDANSETRON 4 MG/2 ML VIAL IVP PRN ×3 (00:48→22:42)
[2019-09-05] MEDS: ALBUTEROL 0.083% 2.5 MG/3 ML NEBU IH SCH ×4 (01:41→19:55)
[2019-09-05] MEDS: IPRATROPIUM 0.02% 0.5 MG/2.5 ML NEBU IH SCH ×4 (01:41→19:54)
--- NOTE | 2019-09-05 01:56 | NUR ---
SCHEDULED BREATHING TREATMENTS ADMINISTERED. TOLERATED TREATMENTS WELL WITHOUT ADVERSE SIDE EFFECTS. TITRATED OXYGEN TO 2L NASAL CANNULA, PULSE OX SAT 100%. NO ACUTE RESPIRATORY DISTRESS NOTED. WILL CONTINUE TO MONITOR.
--- NOTE | 2019-09-05 02:15 | NUR ---
PATIENT IS SLEEPING COMFORTABLY IN BED. CHEST RISE AND FALL. CALL LIGHT IS WITHIN REACH.
[2019-09-05 04:00] VITALS: BP 110/51
--- NOTE | 2019-09-05 04:10 | NUR ---
VITAL SIGNS ARE WITHIN NORMAL LIMITS. CALL LIGHT IS WITHIN REACH. WILL CONTINUE TO MONITOR
[2019-09-05] MEDS: METOPROLOL 50 MG TAB PO SCH ×3 (05:15→21:21)
[2019-09-05] MEDS: PIPERACILLIN/TAZOBACTAM 2.25 GM in DEXTROSE 5% 50 ML IV SCH ×3 (05:21→21:29)
[2019-09-05] MEDS: INSULIN LISPRO SLIDING SCALE 100 UNITS/ML VIAL SUBQ PRN ×4 (06:23→21:20)
[2019-09-05] MEDS: BLOOD GLUCOSE MONITORING 1 DEV DEV FS SCH ×4 (06:28→21:05)
--- NOTE | 2019-09-05 07:10 | NUR ---
GAVE BEDSIDE REPORT TO DAY RN. PT ENDORSED IN STABLE CONDITION.
--- NOTE | 2019-09-05 07:10 | NUR ---
RECEIVED REPORT FROM DRINK WAITER NURSE. PT AAOX4, NO C/O PAIN AT THIS TIME. PT ON STARCH MANGLE TENDER. IV ON LT FA 24 GA ON TKO. RESPIRATIONS EVEN AND UNLABORED ON RA, O2 SAT 92%. ABD SOFT, ACTIVE BS, LBM 09/04. PT IS ABLE TO VOID AND NO LONGER NEEDS F/C. NOTED RT ANKLE WOUND DRESSING, CLEAN, DRY AND INTACT. PT ON FALL RISK PRECAUTIONS, SAFETY MEASURES IN PLACE, CALL LIGHT WITHIN REACH. REVIEWED POC WITH PT, PT VERBALIZED UNDERSTANDING.
[2019-09-05] MEDS: BUDESONIDE 0.5 MG/2 ML NEBU INH SCH ×2 (07:19→19:54)
[2019-09-05 07:46] LABS: BASOPHILS % (AUTO) 0.3 % (0.0-2.0); EOSINOPHILS # (AUTO) 0.3 K/uL (0-0.4); EOSINOPHILS % (AUTO) 3.2 % (0.0-4.0); HEMATOCRIT 24.1 % (36-48); HEMOGLOBIN 7.8 g/dL (12.0-16.0); MEAN CORPUSCULAR HEMOGLOBIN 26 pg (27-31); MEAN CORPUSCULAR HGB CONC 32 g/dL (33-37); MEAN CORPUSCULAR VOLUME 79.1 fL (80-94); MONOCYTES # (AUTO) 0.4 K/uL (0.8-1.0); MONOCYTES % (AUTO) 5.2 % (1.7-9.3); NEUTROPHILS % (AUTO) 80.3 % (42.2-75.2); PLATELET COUNT (AUTO) 186 K/uL (140-450); RED BLOOD CELL COUNT(AUTO) 3.05 MIL/uL (4.20-5.40); RED CELL DISTRIBUTION WIDTH 15.8 % (11.6-13.7); WHITE BLOOD COUNT (AUTO) 8.7 K/uL (4.8-10.8)
[2019-09-05 08:00] VITALS: BP 135/63
[2019-09-05 08:05] LABS: ALBUMIN 1.1 g/dL (3.4-5.0); ANION GAP 20.4 (8-16); CARBON DIOXIDE 18.3 mmol/L (21-32); POTASSIUM 3.7 mmol/L (3.5-5.1); TOTAL BILIRUBIN 0.5 mg/dL (0.0-1.0)
[2019-09-05 08:16] LABS: CREATININE 6.2 mg/dL (0.6-1.3)
--- NOTE | 2019-09-05 08:30 | NUR ---
PAGED DR. ARELLANO TO REPORT CRITICAL LAB VALUES, AWAITING CALL BACK.
--- NOTE | 2019-09-05 09:19 | NUR ---
PAGED CASINO BEVERAGE SERVER FOR THE SECOND TIME TO REPORT CRITICAL LAB VALUES, AWAITING CALL BACK.
--- NOTE | 2019-09-05 09:20 | NUR ---
SARAH/WOUND CARE NURSE AT BEDSIDE FOR WOUND CONSULT.
--- NOTE | 2019-09-05 09:40 | NUR ---
RECEIVED CALL FROM SHEAR ASSEMBLER GENERAL PARTNER, PER PHYSICIAN NO NEW ORDERS AT THIS TIME, BUT WILL SEE THE PT LATER TODAY.
[2019-09-05] MEDS: AZITHROMYCIN 500 MG in DEXTROSE 5% 250 ML IV SCH (09:47)
[2019-09-05] MEDS: GABAPENTIN 300 MG CAP PO SCH (09:48)
[2019-09-05] MEDS: MUPIROCIN CA NASAL 2% 1GM TUBE NS SCH (09:48)
[2019-09-05] MEDS: amLODIPine 5 MG TAB PO SCH (09:49)
[2019-09-05] MEDS: SODIUM BICARBONATE 650 MG TAB PO SCH ×2 (09:49→21:22)
[2019-09-05] MEDS: CHLORHEXADINE GLUC 2% CLOTH TP SCH (09:50)
--- NOTE | 2019-09-05 10:05 | NUR ---
ROMELIA REPORTED TO DR ESCAMILLA
[2019-09-05] MEDS: MORPHINE SULFATE 4 MG/ML SYR IVP PRN (10:11)
--- NOTE | 2019-09-05 10:17 | NUR ---
WOUND CARE EVALUATION NOTE: REASON FOR EVALUATION: RIGHT MEDIAL ANKLE VASCULAR ULCER WOUND SKIN ASSESSMENT DONE WITH THIS 53 Y/O FEMALE PT ADMITTED TO [facility] WITH RLE PAIN. PER PT. THAT ULCER STARTED ABOUT 2 WEEKS AGO, PT IS AWAKE. SKIN IS WARM AND DRY. BLE NO HAIR GROWTH, +1 EDEMA TO BILATERAL LOWER LEGS. BILATERAL DORSAL PEDAL PULSES PRESENT THICKEN NAILS OBSERVED. PLAN OF CARE DISCUSSED WITH PRIMARY RN AND PT. PT. VERBALIZING UNDERSTANDING. INTEGUMENTARY: -RIGHT MEDIAL ANKLE VASCULAR ULCER 2X1.5X0.1CM,WOUND BED IS PALE PINK, MOIST, NO ODOR, WOUND EDGE SLIGHTLY THIN EPITHELIUM TISSUE TO BORDER AND MAREN WOUND SKIN PALE PINK, PAIN 0/10 -LEFT HEEL THICK CALLUS RECOMMENDATIONS: -CLEANSE RIGHT MEDIAL ANKLE VASCULAR ULCER WITH NS AND GAUZE, PAT DRY, COVER WITH XEROFORM DRESSING, AND WRAP WITH TERESITA Q M-W-F AND PRN WITH SOILING. -OFFLOAD BILATERAL HEELS BY PLACING PILLOWS UNDER CALVES UNLESS OTHERWISE CONTRAINDICATED -PRESSURE REDISTRIBUTION SURFACE THERAPY -TURN AND REPOSITION Q2H, OFFLOAD SACRALCOCCYX BY TURNING RIGHT AND LEFT -CONTINUE TO FOLLOW RD RECOMMENDATIONS ALL ABOVE RECOMMENDATIONS DISCUSSED WITH PRIMARY RN WILL FOLLOW UP PT Q7-10 DAYS. PLEASE CONTACT WOUND CARE NURSE FOR ANY QUESTION AND CHANGE OF WOUND CONDITION.
[2019-09-05 12:00] VITALS: BP 106/56
--- NOTE | 2019-09-05 12:20 | NUR ---
NOTIFIED DR. ESCAMILLA OF PT'S CREATININE LEVEL OF 6.2, BUN LEVEL OF 66 AND CALCIUM LEVEL OF 8.2. NO NEW ORDERS RECEIVED. ARCHITECTURE DRAFTER ON BOARD.
[2019-09-05] MEDS: NACL 0.9% 1,000 ML IV SCH (12:30)
[2019-09-05] MEDS: GAUZE TP SCH (13:18)
--- NOTE | 2019-09-05 13:19 | NUR ---
ADMINISTERED ZOFRAN D/T PT'S FEELINGS OF NAUSEA. WILL REASSESS WITHIN 1 HOUR.
--- NOTE | 2019-09-05 13:32 | NUR ---
CONTACTED PATIENT'S PCP OFFICE DR. Hobbs AT [phone], ABLE TO SPEAK TO MARIBELL REGARDING POST DISCHARGE APPOINTMENT. SHE PROVIDED ME WITH September 14, 2019 AT 2PM. ADDRESS TO THE CLINIC IS [address] [place] [id number]. Maribell recommended patient to arrive 15 minutes early and to take her discharge paper with her.
--- NOTE | 2019-09-05 15:30 | NUR ---
PT HAD 1 EPISODE OF VOMITING AFTER EATING. PT GIVEN ORAL CARE.
[2019-09-05 16:00] VITALS: BP 115/65
--- NOTE | 2019-09-05 17:48 | NUR ---
ADMINISTERED HUMALOG PER SLIDING SCALE FOR BLOOD SUGAR OF 196. PT HAS NO S/S OF HYPERGLYCEMIA.
--- NOTE | 2019-09-05 19:20 | NUR ---
ENDORSED PT TO SCREEN WRITER NURSE. PT HAS NO SIGNS OF DISTRESS AT THIS TIME. O2 SAT 98% ON RA.
--- NOTE | 2019-09-05 19:25 | NUR ---
RECEIVED BEDSIDE REPORT FROM AM SHIFT RN YUMI, FOR PT'S CONTINUITY OF CARE. PT IS ON HASH SLINGER, IS ON MONITORED O2 SATURATION ROOM AIR, HAS RIGHT FOREARM 24G WITH NS AT 75 ML/HR, DENIES ANY PAIN AT THIS TIME. PT VERBALIZED UNDERSTANDING REGARDING QUALITY AUDIT REPRESENTATIVE ROUTINE. SAFETY MEASURES IN PLACE. SIDE RAILS ARE UP, BED ON LOW POSITION, AND CALL LIGHT IS WITHIN REACH. WILL MONITOR PT THROUGHOUT SHIFT.
[2019-09-05 20:00] VITALS: BP 117/58
--- NOTE | 2019-09-05 20:09 | NUR ---
RECEIVED PATIENT ON ROOM AIR, PULSE OX SAT 94%. SCHEDULED BREATHING TREATMENTS ADMINISTERED. TOLERATED TREATMENTS WELL WITHOUT ADVERSE SIDE EFFECTS. ORAL RINSE DONE POST TX. NO ACUTE RESPIRATORY DISTRESS NOTED AT THIS TIME. WILL CONTINUE TO MONITOR.
--- NOTE | 2019-09-05 21:20 | NUR ---
BLOOD GLUCOSE AND VS CHECKED AND CHARTED. ADMINISTERED SCHEDULED PO AND IV ABX ORDERED. ADMINISTERED SUBQ INSULIN PER SLIDING SCALE ORDERED. PT TOLERATED THEM WELL. PT STATES SHE FEELS MUCH BETTER TODAY. C/O NAUSEA AND VOMITING AFTER EATING A MEAL. RECOMMENDED TO TAKE FOOD SLOWLY AND IN SMALL AMOUNT. WILL REASSESS PT IF N/V PERSIST, PT REFUSED ANTI NAUSEA MEDICATION AT THIS TIME.
[2019-09-05] MEDS: SIMVASTATIN 20 MG TAB PO SCH (21:22)
--- NOTE | 2019-09-05 22:45 | NUR ---
PT CONTINUES TO HAVE N/V, ADMINISTERED IV PUSH ANTI NAUSEA MEDICATION ORDERED. PT TOLERATED IT WELL. WILL REASSESS PT.
--- NOTE | 2019-09-05 23:00 | NUR ---
PT C/O RESTLESSNESS AND "MILD ANXIOUS FEELING". ADMINISTERED IV PUSH ANTI ANXIETY MEDICATION. PT TOLERATED IT WELL. VS CHECKED AND CHARTED. PT STATES ANTI NAUSEA MEDICATION IS EFFECTIVE. WILL CONTINUE TO MONITOR PT.
[2019-09-06] VITALS: BP 126/68
--- NOTE | 2019-09-06 00:59 | NUR ---
PT LYING DOWN ASLEEP WITH NO SIGNS OF RESPIRATORY DISTRESS. PT'S O2 SAT IS AT 92%. WILL CONTINUE TO MONITOR PT.
[2019-09-06] MEDS: IPRATROPIUM 0.02% 0.5 MG/2.5 ML NEBU IH SCH ×4 (01:00→20:46)
[2019-09-06] MEDS: ALBUTEROL 0.083% 2.5 MG/3 ML NEBU IH SCH ×4 (01:00→20:45)
--- NOTE | 2019-09-06 01:28 | NUR ---
PATIENT REFUSED BREATHING TREATMENT AT THIS TIME STATING SHE "JUST WANTS TO SLEEP RIGHT NOW." NO ACUTE DISTRESS NOTED. WILL CONTINUE TO MONITOR.
--- NOTE | 2019-09-06 02:15 | NUR ---
MADE ROUNDS. PT LYING DOWN ASLEEP WITH NO SIGNS OF DISTRESS. O2 SATURATION AT 93%. WILL CONTINUE TO MONITOR PT.
[2019-09-06 04:00] VITALS: BP 106/54
[2019-09-06] MEDS: PIPERACILLIN/TAZOBACTAM 2.25 GM in DEXTROSE 5% 50 ML IV SCH (04:29)
--- NOTE | 2019-09-06 04:29 | NUR ---
ADMINISTERED SCHEDULED IV ABX ORDERED. PT LYING DOWN ASLEEP WITH NO SIGNS OF DISTRESS. O2 SATURATION IN ROOM AIR IS 97%. WILL CONTINUE TO MONITOR PT.
--- NOTE | 2019-09-06 05:00 | NUR ---
PAGED THE PARAMEDICAL AIDE MD FOR RENEWAL OF IV ABX. PER PARAMEDICAL AIDE MD, NOTIFY PRIMARY MD IN AM FOR THE NEXT DOSE ORDER, SINCE NEXT DOSE IS NOT UNTIL 1300. WILL ENDORSE TO AM SHIFT RN FOR FOLLOW UP.
[2019-09-06] MEDS: NACL 0.9% 1,000 ML IV SCH ×2 (05:25)
[2019-09-06] MEDS: BLOOD GLUCOSE MONITORING 1 DEV DEV FS SCH ×4 (06:00→21:16)
--- NOTE | 2019-09-06 06:10 | NUR ---
PT WOKE UP COUGHING, NON PRODUCTIVE COUGH. PT DENIES ANY PAIN OR DISTRESS AT THIS TIME. WILL ENDORSE TO AM SHIFT RN FOR PT'S CONTINUITY OF CARE.
[2019-09-06] MEDS: BUDESONIDE 0.5 MG/2 ML NEBU INH SCH ×2 (06:51→20:46)
--- NOTE | 2019-09-06 07:35 | NUR ---
REPORT RECEIVED FROM NIGHT RN AT BEDSIDE. PT IN STABLE CONDITION. AAOX4. INTRODUCED SELF TO PT. BOARD UPDATED. NO COMPLAINTS OF PAIN. NO SOB. AFEBRILE. PT IS AMBULATORY WITH A WALKER. IV SITE RIGHT FA 24G RUNNING NS @ 75ML/HR PATENT AND INTACT. SKIN WARM, DRY, AND NOT INTACT DUE TO A DIABETIC FOOT ULCER ON RIGHT MEDIAL SIDE OF RIGHT ANKLE. REVIEWED POC WITH PT AND PT VERBALIZED UNDERSTANDING. BED LOCKED IN LOW POSITION. CALL CHACON WITHIN REACH. SAFETY PRECAUTION IN PLACE. ALL NEEDS MET AT THIS TIME. WILL ROUND FREQUENTLY ON PT.
[2019-09-06 07:43] LABS: BASOPHILS % (AUTO) 0.3 % (0.0-2.0); EOSINOPHILS # (AUTO) 0.6 K/uL (0-0.4); EOSINOPHILS % (AUTO) 6.2 % (0.0-4.0); HEMATOCRIT 25.5 % (36-48); HEMOGLOBIN 8.2 g/dL (12.0-16.0); MEAN CORPUSCULAR HEMOGLOBIN 25 pg (27-31); MEAN CORPUSCULAR HGB CONC 32 g/dL (33-37); MEAN CORPUSCULAR VOLUME 78.5 fL (80-94); MONOCYTES # (AUTO) 0.5 K/uL (0.8-1.0); MONOCYTES % (AUTO) 5.7 % (1.7-9.3); NEUTROPHILS # (AUTO) 6.9 K/uL (1.8-7.7); NEUTROPHILS % (AUTO) 76.8 % (42.2-75.2); PLATELET COUNT (AUTO) 239 K/uL (140-450); RED BLOOD CELL COUNT(AUTO) 3.24 MIL/uL (4.20-5.40); RED CELL DISTRIBUTION WIDTH 15.7 % (11.6-13.7)
[2019-09-06 08:00] VITALS: BP 130/71
[2019-09-06 08:11] LABS: ALBUMIN 1.2 g/dL (3.4-5.0); ANION GAP 18.6 (8-16); CARBON DIOXIDE 20.1 mmol/L (21-32); POTASSIUM 3.7 mmol/L (3.5-5.1); TOTAL BILIRUBIN 0.5 mg/dL (0.0-1.0)
[2019-09-06 08:14] LABS: MAGNESIUM 2.5 mg/dL (1.8-2.4); PHOSPHORUS 6.6 mg/dL (2.5-4.9)
[2019-09-06 08:27] LABS: CREATININE 6.8 mg/dL (0.6-1.3)
--- NOTE | 2019-09-06 09:24 | NUR ---
ADMINISTERED MORNING MEDS TO PT. PT TOLERATED WELL. WILL CONTINUE TO ROUND FREQUENTLY ON PT.
[2019-09-06] MEDS: METOPROLOL 50 MG TAB PO SCH ×2 (10:03→21:11)
[2019-09-06] MEDS: MUPIROCIN CA NASAL 2% 1GM TUBE NS SCH (10:03)
[2019-09-06] MEDS: CHLORHEXADINE GLUC 2% CLOTH TP SCH (10:04)
[2019-09-06] MEDS: SODIUM BICARBONATE 650 MG TAB PO SCH ×2 (10:04→21:13)
--- NOTE | 2019-09-06 11:47 | NUR ---
PT RESTING IN BED. BS IS 177. WILL GIVE 3 UNITS COVERAGE PER MD ORDER. ALL OTHER NEEDS MET. WILL CONTINUE TO ROUND FREQUENTLY ON PT.
[2019-09-06 12:00] VITALS: BP 137/72
[2019-09-06] MEDS: GAUZE TP SCH (12:55)
--- NOTE | 2019-09-06 13:15 | NUR ---
09/06/19 RD INITIAL ASSESSMENT COMPLETED PLEASE REFER TO NUTRITION ASSESSMENT UNDER CARE ACTIVITY FOR ESTIMATED NUTRITIONAL NEEDS. 1. CONTINUE CCHO 60GM DIET TOLERATED 2. RECOMMEND NEPHRO-RADHA AND NEPRO SHAKE BID FOR WOUND HEALING 3. RD PROVIDING COUNTING CARBOHYDRATE NUTRITION EDUCATION. PT ACCEPTED 4. RD TO FOLLOW-UP 3-5 DAYS, MODERATE RISK REAGAN CARROLL RD
[2019-09-06] MEDS: SODIUM FERRIC GLUCONATE 125 MG in NACL 0.9% 100 ML IV SCH (13:25)
[2019-09-06] MEDS: INSULIN LISPRO SLIDING SCALE 100 UNITS/ML VIAL SUBQ PRN ×2 (13:26→16:58)
--- NOTE | 2019-09-06 13:42 | NUR ---
PT IN RESTROOM. ALL NEEDS MET. OUTPUT SO FAR ON THIS SHIFT IS 435. WILL CONTINUE TO MONITOR PT OUTPUT CLOSELY.
--- NOTE | 2019-09-06 15:09 | NUR ---
ENDORSED PT TO ELIAN FOR CONTINUITY OF CARE. ALL NEEDS CURRENTLY MET. PT IN STABLE CONDITION AT THIS TIME.
[2019-09-06 16:00] VITALS: BP 144/83
--- NOTE | 2019-09-06 16:19 | NUR ---
DISCHARGE PLANNING 53 y/o female pt admitted for COPD exacerbation, acute viral syndrome, CKD and uncontrolled DM with hyperglycemia. Pt is a former smoker who reports has been compliant with care. Pt's renal function worsening according to MD however no immediate need for dialysis. Nephro consulted. Anticipated disposition LTAC vs SNF/Home. Pt has medical coverage with [facility] with [facility]. Sw called [facility] and was informed inpatient Korina Block still reviewing records and auth will be approved/denied once patient is discharge. Contact [facility] for dc planning ext [phone]. Dept. will continue following up as needed. Lucretia Negron, ACSW Ext [phone]
--- NOTE | 2019-09-06 16:33 | NUR ---
SPOKE WITH Sp ESCAMILLA NOTIFIED AIX ARCHITECT DR CORAL SUERO RECOMMENDATION LTAC EVAL , PER DR ESCAMILLA OK TO LTACK EVAL. CALLED ENMANUEL AT [facility] WILL COME TO EVALUATE PATIENT, FAXED ALL PT INFORMATION TO [facility] ,AND CM TO FOLLOW.
--- NOTE | 2019-09-06 16:59 | NUR ---
PATIENT LYING DOWN IN BED SLEEPING, AROUSABLE BY VOICE. NO DISTRESS NOTED. DENIES ANY PAIN. SCHEDULED MEDICATIONS DUE GIVEN. WILL CONTINUE TO MONITOR.
--- NOTE | 2019-09-06 19:35 | NUR ---
GAVE REPORT TO COURT ADMINISTRATOR NURSE FOR CONTINUITY OF CARE. PATIENT IN STABLE CONDITION.
--- NOTE | 2019-09-06 19:36 | NUR ---
Recieved report from Kiran GARCIA. Report given at bedside. Pt aaox4 verbalizing needs. IV patent RFA . No distress noted.
[2019-09-06 20:00] VITALS: BP 176/68
--- NOTE | 2019-09-06 21:09 | NUR ---
RECEIVED PATIENT ON 2L NASAL CANNULA, PULSE OX SAT 99%. SCHEDULED BREATHING TREATMENT ADMINISTERED. TOLERATED TX WELL WITHOUT ADVERSE SIDE EFFECTS. ORAL RINSE DONE POST TX. NO ACUTE DISTRESS NOTED AT THIS TIME. WILL CONTINUE TO MONITOR.
[2019-09-06] MEDS: SIMVASTATIN 20 MG TAB PO SCH (21:14)
[2019-09-07] VITALS: BP 178/68
--- NOTE | 2019-09-07 | NUR ---
PT. SLEEPING CALL LIGHT WITHIN REACH SR TELE
[2019-09-07] MEDS: ALBUTEROL 0.083% 2.5 MG/3 ML NEBU IH SCH ×4 (01:00→19:54)
[2019-09-07] MEDS: IPRATROPIUM 0.02% 0.5 MG/2.5 ML NEBU IH SCH ×4 (01:00→20:05)
--- NOTE | 2019-09-07 01:26 | NUR ---
PATIENT REFUSED BREATHING TREATMENT AT THIS TIME. PATIENT STATES TO "LET HER SLEEP". NO ACUTE RESPIRATORY DISTRESS/SHORTNESS OF BREATH NOTED AT THIS TIME. PATIENT MADE AWARE OF MEDICATION FREQUENCY. WILL CONTINUE TO MONITOR.
[2019-09-07] MEDS: NACL 0.9% 1,000 ML IV SCH ×3 (02:40→19:04)
[2019-09-07 04:00] VITALS: BP 144/78
--- NOTE | 2019-09-07 04:00 | NUR ---
PT GIVEN SPONGE BATH LINEN CHANGED ON TELE SR
[2019-09-07] MEDS: ONDANSETRON 4 MG/2 ML VIAL IVP PRN (05:01)
[2019-09-07] MEDS: MORPHINE SULFATE 2 MG/ML SYR IVP PRN (05:14)
[2019-09-07] MEDS: INSULIN LISPRO SLIDING SCALE 100 UNITS/ML VIAL SUBQ PRN ×4 (06:05→21:30)
--- NOTE | 2019-09-07 06:15 | NUR ---
PT SLEEPING AFTER PAIN MEDIC GIVEN . PT WILL BE ENDORSED TO DAY SHIFT NURSE FOR CONTINUE CARE
--- NOTE | 2019-09-07 07:30 | NUR ---
RECEIVED REPORT FROM FIELD TRAINING AGENT NURSE. PATIENT IS IN BED, ASLEEP, EASILY AROUSABLE. RESPIRATION EVEN AND UNLABORED. O2 SAT 100% ROOM AIR. IV INTACT TO RFA WITH NS INFUSING AT 60ML/HR. BED IN LOW POSITION.
[2019-09-07 07:46] LABS: BASOPHILS # (AUTO) 0.1 K/uL (0.00-0.22); BASOPHILS % (AUTO) 0.6 % (0.0-2.0); EOSINOPHILS # (AUTO) 0.6 K/uL (0-0.4); EOSINOPHILS % (AUTO) 6.3 % (0.0-4.0); HEMATOCRIT 25.4 % (36-48); HEMOGLOBIN 8.2 g/dL (12.0-16.0); LYMPHOCYTES # (AUTO) 0.9 K/uL (2.5-16.5); LYMPHOCYTES % (AUTO) 9.3 % (20.5-51.1); MEAN CORPUSCULAR HEMOGLOBIN 25 pg (27-31); MEAN CORPUSCULAR HGB CONC 32 g/dL (33-37); MEAN CORPUSCULAR VOLUME 78.8 fL (80-94); MONOCYTES # (AUTO) 0.5 K/uL (0.8-1.0); MONOCYTES % (AUTO) 4.8 % (1.7-9.3); NEUTROPHILS # (AUTO) 7.7 K/uL (1.8-7.7); PLATELET COUNT (AUTO) 272 K/uL (140-450); RED BLOOD CELL COUNT(AUTO) 3.23 MIL/uL (4.20-5.40); RED CELL DISTRIBUTION WIDTH 15.9 % (11.6-13.7); WHITE BLOOD COUNT (AUTO) 9.8 K/uL (4.8-10.8)
[2019-09-07] MEDS: BUDESONIDE 0.5 MG/2 ML NEBU INH SCH ×2 (07:52→19:53)
[2019-09-07 08:00] VITALS: BP 109/58
[2019-09-07] MEDS: BLOOD GLUCOSE MONITORING 1 DEV DEV FS SCH ×4 (08:30→21:28)
[2019-09-07] MEDS: METOPROLOL 50 MG TAB PO SCH ×2 (09:00→20:24)
[2019-09-07 09:42] LABS: ANION GAP 19.8 (8-16); CARBON DIOXIDE 18.1 mmol/L (21-32); POTASSIUM 3.9 mmol/L (3.5-5.1)
[2019-09-07 09:43] LABS: ALBUMIN 1.2 g/dL (3.4-5.0); TOTAL BILIRUBIN 0.4 mg/dL (0.0-1.0)
[2019-09-07 09:49] LABS: CREATININE 7.6 mg/dL (0.6-1.3)
--- NOTE | 2019-09-07 09:49 | NUR ---
RECEIVED CRITICAL LAB VALUE OF CREATININE 7.6. BUN 64. WILL PAGE F/U WITH .
[2019-09-07] MEDS: SODIUM BICARBONATE 650 MG TAB PO SCH ×2 (10:25→20:24)
[2019-09-07] MEDS: CHLORHEXADINE GLUC 2% CLOTH TP SCH (10:25)
[2019-09-07] MEDS: MUPIROCIN CA NASAL 2% 1GM TUBE NS SCH (10:25)
--- NOTE | 2019-09-07 10:55 | NUR ---
DR. SUERO RETURNED CALL IN REGARDS TO ABNORMAL LABS. PER CONTINUE IVF NS WITH 60ML/HR, MONITOR URINE OUTPUT.
[2019-09-07 12:00] VITALS: BP 111/61
[2019-09-07 12:09] LABS: PHOSPHORUS 6.3 mg/dL (2.5-4.9)
--- NOTE | 2019-09-07 13:30 | NUR ---
PATIENT ABLE TO AMBULATE WITH STEADY GAIT TO THE SHOWER WITH STANDBY ASSIST BY STAFF. DAUGHTER AT BEDSIDE.
--- NOTE | 2019-09-07 14:30 | NUR ---
WOUND ASSESSMENT DONE. DRESSING TO RIGHT ANKLE CHANGED ORDERED. AREA IS HEALING WELL. DRESSING CHANGE TOLERATED WELL.
[2019-09-07] MEDS: SODIUM FERRIC GLUCONATE 125 MG in NACL 0.9% 100 ML IV SCH (14:31)
[2019-09-07] MEDS: GAUZE TP SCH (14:35)
[2019-09-07 16:00] VITALS: BP 147/69
--- NOTE | 2019-09-07 17:00 | NUR ---
BS CHECKED 230. INSULIN COVERAGE TO BE GIVEN.
--- NOTE | 2019-09-07 19:20 | NUR ---
REPORT GIVEN TO RADHA LUNA. PATIENT IN STABLE CONDITION.
--- NOTE | 2019-09-07 19:23 | NUR ---
RECEIVED REPORT FORM RO GARCIA DAYSHIFT NURSE AT BEDSIDE FOR CONTINUITY OF CARE, PT IN STABLE CONDITION.
[2019-09-07 20:00] VITALS: BP 138/62
--- NOTE | 2019-09-07 20:00 | NUR ---
PT IN BED RECEIVING NEB TREATMENT AT BEDSIDE. LUNG SOUNDS DIMINISHED. IV SITE INTACT AND RUNNING N/S AT 60MLS/HR. PT DENIES PAIN AT THIS TIME. V/S FOLLOWS T 97.1 P 84 R 18 B/P 138/62 02 100%. NO S/S OF PAIN OR DISTRESS NOTED. ALL REQUESTED NEEDS ATTENDED BY STAFF ALL FALLS PRECAUTIONS IN PLACE CALL CHACON IN REACH.
[2019-09-07] MEDS: SIMVASTATIN 20 MG TAB PO SCH (20:24)
--- NOTE | 2019-09-07 20:30 | NUR ---
PT GIVEN DUE MEDS OF LOPRESSOR, SODIUM BICARBONATE AND ZOCOR. EDUCATION REGARDING MEDICATIONS PROVIDED AT BEDSIDE, PT VERBALIZED UNDERSTANDING.
--- NOTE | 2019-09-07 21:00 | NUR ---
FINGERSTICK IS 201, PT GIVEN 5 UNITS OF HUMALOG PER S/S. PT IN BED WITH NO C/O VOICED AT THIS TIME. ALL FALLS PRECAUTIONS IN PLACE AND CALL CHACON IN REACH.
[2019-09-08] VITALS: BP 114/58
--- NOTE | 2019-09-08 | NUR ---
PT IN BED V/S FOLLOWS T 97.3 P 76 R 18 B/P 114/58 02 91% ON 2 LITERS VIA N/C. ALL FALLS AND CONTACT PRECAUTIONS IN PLACE.
[2019-09-08] MEDS: ALBUTEROL 0.083% 2.5 MG/3 ML NEBU IH SCH ×3 (01:02→13:00)
[2019-09-08] MEDS: IPRATROPIUM 0.02% 0.5 MG/2.5 ML NEBU IH SCH ×3 (01:03→13:00)
--- NOTE | 2019-09-08 01:12 | NUR ---
PT SLEEPING IN BED, BUT AROUSABLE TO NAME AND LIGHT TOUCH, PT PULLED OUT HER IV SITE 24G ON RIGHT F/A, CANNULA INTACT. NEW IV SITE ATTEMPTED X1 IN RIGHT HAND. TOLD CHARGE NA , SHE TRIED ATTEMPTED X2, BUT ALSO UNSUCCESSFUL, PT SAID THAT SHE DOESN'T WANT TO BE POKED AGAIN. WILL ASK ER STAFF LATER IF THEY WILL TRY PROVIDING PT IS OK WITH IT. V/S FOLLOWS T 97.3 P 76 R 18 B/P 114/58 02 91% ON ROOM AIR. RT AT BEDSIDE TO PROVIDE BREATHING TREATMENT.
--- NOTE | 2019-09-08 02:00 | NUR ---
PT PULLED OUT HER IV SITE, WILL CALL ER TO REPLACE THE SITE.PT IN BED NO S/S OF PAIN OR DISTRESS NOTED.
[2019-09-08 04:00] VITALS: BP 142/70
--- NOTE | 2019-09-08 04:00 | NUR ---
PT IN BEWD V/S FOLLOWS T 98.8 P 80 R 18 B/P 142/70 02 95% WITH 2 LITERS VIA N/C. ER HERE TO PROVIDED NEW IV SITE.
--- NOTE | 2019-09-08 04:30 | NUR ---
NEW IV SITE 20G ON LEFT AC INTACT AND FLUSHED PATENT.ALL CONTACT AND FALLS PRECAUTIONS IN PLACE.
[2019-09-08] MEDS: MORPHINE SULFATE 2 MG/ML SYR IVP PRN (05:42)
--- NOTE | 2019-09-08 06:00 | NUR ---
PT RECEIVED MORPHINE FOR MODERATE PAIN IN ARM VIA IVP. FINGERSTICK IS 155, SHE RECEIVED 3 UNITS OF HUMALOG COVERAGE.
[2019-09-08] MEDS: BLOOD GLUCOSE MONITORING 1 DEV DEV FS SCH ×4 (06:02→21:00)
[2019-09-08] MEDS: INSULIN LISPRO SLIDING SCALE 100 UNITS/ML VIAL SUBQ PRN ×3 (06:04→16:46)
[2019-09-08 07:40] LABS: BASOPHILS % (AUTO) 0.4 % (0.0-2.0); EOSINOPHILS # (AUTO) 0.4 K/uL (0-0.4); EOSINOPHILS % (AUTO) 4.1 % (0.0-4.0); HEMATOCRIT 26.2 % (36-48); HEMOGLOBIN 8.4 g/dL (12.0-16.0); LYMPHOCYTES # (AUTO) 0.9 K/uL (2.5-16.5); LYMPHOCYTES % (AUTO) 8.5 % (20.5-51.1); MEAN CORPUSCULAR HEMOGLOBIN 25 pg (27-31); MEAN CORPUSCULAR HGB CONC 32 g/dL (33-37); MEAN CORPUSCULAR VOLUME 78.4 fL (80-94); MONOCYTES # (AUTO) 0.3 K/uL (0.8-1.0); NEUTROPHILS # (AUTO) 8.9 K/uL (1.8-7.7); PLATELET COUNT (AUTO) 325 K/uL (140-450); RED BLOOD CELL COUNT(AUTO) 3.34 MIL/uL (4.20-5.40); RED CELL DISTRIBUTION WIDTH 16.1 % (11.6-13.7); WHITE BLOOD COUNT (AUTO) 10.6 K/uL (4.8-10.8)
--- NOTE | 2019-09-08 07:45 | NUR ---
RECEIVED HAND OFF REPORT FROM PM RN PT APPEARS STABLE AND IN NO APPARENT DISTRESS. NASAL CANULA IN PLACE. ALL SAFETY MEASURES IN PLACE. PT ON SPO2 MONITORING. WILL CONTINUE TO MONITOR
[2019-09-08] MEDS: BUDESONIDE 0.5 MG/2 ML NEBU INH SCH (08:02)
[2019-09-08 08:07] LABS: MAGNESIUM 2.6 mg/dL (1.8-2.4)
[2019-09-08 08:08] LABS: ANION GAP 20.7 (8-16); CARBON DIOXIDE 17.8 mmol/L (21-32); POTASSIUM 3.5 mmol/L (3.5-5.1)
[2019-09-08 08:09] LABS: ALBUMIN 1.4 g/dL (3.4-5.0); TOTAL BILIRUBIN 0.3 mg/dL (0.0-1.0)
[2019-09-08 08:11] LABS: CREATININE 7.5 mg/dL (0.6-1.3)
[2019-09-08 08:15] VITALS: BP 125/60
[2019-09-08] MEDS: MUPIROCIN CA NASAL 2% 1GM TUBE NS SCH (08:32)
[2019-09-08] MEDS: SODIUM BICARBONATE 650 MG TAB PO SCH ×2 (08:32→23:37)
[2019-09-08] MEDS: METOPROLOL 50 MG TAB PO SCH ×2 (08:32→23:37)
[2019-09-08] MEDS: CHLORHEXADINE GLUC 2% CLOTH TP SCH (08:33)
--- NOTE | 2019-09-08 09:43 | NUR ---
FREQUENT ROUNDING ON PT PT APPEARS STABLE AND IN NO APPARENT DISTRESS. ALL SAFETY MEASURES ARE IN PLACE WILL CONTINUE TO MONITOR.
[2019-09-08] MEDS: NACL 0.9% 1,000 ML IV SCH (10:30)
--- NOTE | 2019-09-08 11:34 | NUR ---
FREQUENT ROUNDING ON PT PT APPEARS STABLE AND IN NO APPARENT DISTRESS. ALL SAFETY MEASURES ARE IN PLACE. PT FAMILY AT BEDSIDE. WILL CONTINUE TO MONITOR.
[2019-09-08 12:11] VITALS: BP 137/68
[2019-09-08] MEDS: GAUZE TP SCH (13:00)
--- NOTE | 2019-09-08 13:46 | NUR ---
FREQUENT ROUNDING ON PT PT APPEARS STABLE AND IN NO APPARENT DISTRESS. ALL SAFETY MEASURES ARE IN PLACE WILL CONTINUE TO MONITOR.
[2019-09-08] MEDS: SODIUM FERRIC GLUCONATE 125 MG in NACL 0.9% 100 ML IV SCH (14:13)
--- NOTE | 2019-09-08 14:27 | NUR ---
spoke with Feliciano of [facility] and m=notified her with the HD order for tomorrow.
--- NOTE | 2019-09-08 14:46 | NUR ---
received obtained consent for placement of dialysis access. placed in chart along with time out papers.
[2019-09-08 16:15] VITALS: BP 146/72
--- NOTE | 2019-09-08 16:49 | NUR ---
FINGERSTICK GLUCOSE 186. ADMINISTERED 3 UNITS HUMALOG PER SLIDING SCALE. PT AWAKE IN BED PT APPEARS STABLE AND IN NO APPARENT DISTRESS. PT ON SP02 MONITORING. IVF INFUSING. IV SITE PATENT AND SHOWS NO SIGNS OF INFLAMMATION OR INFILTRATION. PT RECEIVING 02 VIA NASAL CANULA.
--- NOTE | 2019-09-08 19:04 | NUR ---
ENDORSED PT TO PM RN PT AWAKE IN BED PT APPEARS STABLE AND IN NO APPARENT DISTRESS. ALL SAFETY MEASURES ARE IN PLACE, PT ON 2L 02 VIA NASAL CANULA. PT ON SPO2 MONITOR. Addendum: 09/08/19 at 1907 by Paloma Rapp RN [facility] ORDERED FOR 1500 WAS ORDERED FOR HD DID NOT ADMINISTER ON MY SHIFT. PT DOES NOT HAVE HD ACCESS YET
--- NOTE | 2019-09-08 19:10 | NUR ---
RECEIVED REPORT FORM HONEY RN DAYSHIFT NURSE AT BEDSIDE FOR CONTINUITY OF CARE, PT IN STABLE CONDITION.
[2019-09-08 20:00] VITALS: BP 145/67
--- NOTE | 2019-09-08 20:00 | NUR ---
PT IN BED IV SITE ON LEFT AC INTACT AND FLUSHED PATENT. PT ON 2 LITERS VIA N/C. LUNG SOUNDS DIMINISHED, PT RESPIRATIONS EVEN AND UNLABORED. V/S FOLLOWS T 99.7 P 76 R 18 B/P 145/67 02 97% ON 2 LITERS VIA N/C. ALL FALLS AND CONTACT PRECAUTIONS IN PLACE.
--- NOTE | 2019-09-08 21:00 | NUR ---
PT MEDICATION HELD AT THIS TIME DUE TO PT BEING NPO. EQUIPMENT FOR POSSIBLE ARACELI CATH TO BE DONE AT BEDSIDE. PT FINGERSTICK IS 144, NO HUMALOG COVERAGE NEEDED. ALL FALLS AND CONTACT PRECAUTIONS IN PLACE.
--- NOTE | 2019-09-08 23:00 | NUR ---
DOCTOR OH SURGEON CALLED TO SAY THAT WE SHOULD MAKE PT NPO AFTER MIDNIGHT, AND THAT HE WILL BE PUTTING IN A TUNNELED DIALYSIS CATHETER IN THE OR TOMORROW PROBABLY LATE AFTERNOON TOMORROW. GAVE PT A SANDWICH AND DRINK DUE BECAUSE PT WAS NPO AND WILL NEED TO REMAIN NPO MOST LIKELY UNTIL LATE AFTERNOON TOMORROW. PT WAS UPDATED REGARDING STATUS OF DIALYSIS CATHETER PLACEMENT. PT VERBALIZED UNDERSTANDING.
[2019-09-08] MEDS: SIMVASTATIN 20 MG TAB PO SCH (23:38)
[2019-09-08] MEDS: ACETAMINOPHEN 325 MG TAB PO PRN (23:45)
--- NOTE | 2019-09-08 23:45 | NUR ---
PT IN BED, GIVEN HS MEDS (LOPRESSOR, SODIUM BICARBONATE AND ZOCOR ) PT MEDICATION EDUCATION PROVIDED. V/S FOLLOWS T 98.5 P 84 R 18 B/P 157/77 02 100% WITH 2 LITERS VIA N/C. ALL CONTACTS AND FALLS PRECAUTIONS IN PLACE.
[2019-09-09] VITALS: BP 157/77
[2019-09-09] MEDS: ALBUTEROL 0.083% 2.5 MG/3 ML NEBU IH SCH ×5 (00:24→20:25)
[2019-09-09] MEDS: IPRATROPIUM 0.02% 0.5 MG/2.5 ML NEBU IH SCH ×5 (00:24→20:25)
[2019-09-09 04:00] VITALS: BP 152/82
--- NOTE | 2019-09-09 04:15 | NUR ---
PT IN BED V/S FOLLOWS T 97.4 P 70 R 18 B/P 152/82 02 97% WITH 2 LITERS VIA N/C. ALL FALLS AND CONTACT PRECAUTIONS IN PLACE.
[2019-09-09] MEDS: BLOOD GLUCOSE MONITORING 1 DEV DEV FS SCH ×4 (06:08→21:45)
[2019-09-09] MEDS: INSULIN LISPRO SLIDING SCALE 100 UNITS/ML VIAL SUBQ PRN ×2 (06:11→21:47)
--- NOTE | 2019-09-09 06:17 | NUR ---
PT FINGERSTICK IS 270, GIVEN 7 UNITS OF HUMALOG COVERAGE ACCORDING TO PT S/S. PT GETTING LAB DRAWS AT BEDSIDE. NO S/S OF PAIN OR DISTRESS NOTED.
[2019-09-09 06:49] LABS: BASOPHILS % (AUTO) 0.4 % (0.0-2.0); EOSINOPHILS # (AUTO) 0.3 K/uL (0-0.4); EOSINOPHILS % (AUTO) 3.2 % (0.0-4.0); HEMATOCRIT 25.1 % (36-48); HEMOGLOBIN 8.2 g/dL (12.0-16.0); LYMPHOCYTES # (AUTO) 0.9 K/uL (2.5-16.5); LYMPHOCYTES % (AUTO) 8.8 % (20.5-51.1); MEAN CORPUSCULAR HEMOGLOBIN 26 pg (27-31); MEAN CORPUSCULAR HGB CONC 33 g/dL (33-37); MEAN CORPUSCULAR VOLUME 78.5 fL (80-94); MONOCYTES # (AUTO) 0.5 K/uL (0.8-1.0); MONOCYTES % (AUTO) 4.6 % (1.7-9.3); NEUTROPHILS # (AUTO) 8.6 K/uL (1.8-7.7); PLATELET COUNT (AUTO) 328 K/uL (140-450); RED CELL DISTRIBUTION WIDTH 16.2 % (11.6-13.7); WHITE BLOOD COUNT (AUTO) 10.3 K/uL (4.8-10.8)
[2019-09-09] MEDS: BUDESONIDE 0.5 MG/2 ML NEBU INH SCH ×3 (07:12→20:25)
[2019-09-09 07:33] LABS: ALBUMIN 1.3 g/dL (3.4-5.0); ANION GAP 18.5 (8-16); CARBON DIOXIDE 18.1 mmol/L (21-32); POTASSIUM 3.6 mmol/L (3.5-5.1); TOTAL BILIRUBIN 0.3 mg/dL (0.0-1.0)
--- NOTE | 2019-09-09 07:47 | NUR ---
RECEIVED HAND OFF REPORT FROM PM RN PT AWAKE IN BED PT APPEARS STABLE AND IN NO APPARENT DISTRESS. ALL SAFETY MEASURES ARE IN PLACE WILL CONTINUE TO MONITOR
[2019-09-09 08:23] VITALS: BP 120/65
[2019-09-09] MEDS ORDERED: VIT-B COMP/VIT-C/FOLIC ACID 1 TAB PO SCH (09:00)
[2019-09-09] MEDS: SODIUM BICARBONATE 650 MG TAB PO SCH ×2 (09:00→21:40)
[2019-09-09] MEDS: METOPROLOL 50 MG TAB PO SCH ×2 (09:00→21:40)
--- NOTE | 2019-09-09 10:00 | NUR ---
FREQUENT ROUNDING ON PT PT AWAKE AND WALKING WITH PT. PT APPEARS STABLE AND IN NO APPARENT DISTRESS. ALL SAFETY MEASURES ARE IN PLACE WILL CONTINUE TO MONITOR
--- NOTE | 2019-09-09 10:32 | NUR ---
PT IS AWARE THAT SHE WILL BE GOING TO THE OR AT [facility] FOR PLACEMENT OF DIALYSIS ACCESS. PREOP CHECKLIST IS COMPLETE. PT HAS BEEN NPO SINCE MIDNIGHT.
--- NOTE | 2019-09-09 11:13 | NUR ---
SPOKE WITH RASHARD FABRICATOR [employer] ABOUT THE PLAN FOR PATIENT TO HAVE HD PLACEMENT THAN FOR THE PATIENT TO BE TRANSFERRED TO [place] AND TO HAVE DIALYSIS AT [facility] INSTEAD OF HAVING DIALYSIS HERE. DR. ESCAMILLA AWARE OF PLACE. DR. SHIELDS AWARE
[2019-09-09 12:00] VITALS: BP 167/76
--- NOTE | 2019-09-09 12:05 | NUR ---
BLOOD SUGAR FINGERSTICK 137 NO COVERAGE NEEDED
--- NOTE | 2019-09-09 12:06 | NUR ---
ENMANUEL FROM [facility] CAME AND EVALUATE PT. IE APPROVED FOR [facility] ACCEPTED PATIENT WAITING FOR BED AVAILABLE
[2019-09-09] MEDS: SODIUM FERRIC GLUCONATE 125 MG in NACL 0.9% 100 ML IV SCH (13:17)
[2019-09-09] MEDS: GAUZE TP SCH (13:21)
[2019-09-09] MEDS ORDERED: LIDOCAINE/EPI MPF 1%1:200000 30 ML VIAL INJ ONE (13:24)
[2019-09-09] MEDS ORDERED: BUPIVACAINE-MPF/EPI 0.25% 30 ML VIAL INJ ONE (13:24)
[2019-09-09] MEDS ORDERED: MIDAZOLAM 2 MG/2 ML VIAL ONE (13:39)
[2019-09-09] MEDS ORDERED: fentaNYL 0.05 MG/ML VIAL ONE (13:39)
[2019-09-09] MEDS ORDERED: ceFAZolin 1,000 MG VIAL ONE (13:47)
--- NOTE | 2019-09-09 14:00 | NUR ---
PT TAKEN OFF THE UNIT TO OR FOR HD PLACEMENT
[2019-09-09] MEDS ORDERED: NACL 0.9% 1,000 ML IV SCH (14:39)
[2019-09-09] MEDS ORDERED: BLOOD GLUCOSE MONITORING 1 DEV DEV FS SCH (14:40)
[2019-09-09] MEDS ORDERED: HYDROmorphone 1 MG/ML AMP IVP PRN (14:40)
[2019-09-09] MEDS ORDERED: ONDANSETRON 4 MG/2 ML VIAL IVP PRN (14:40)
--- NOTE | 2019-09-09 15:05 | NUR ---
PT ACCEPTED AT [facility] CAN GO TO ROOM 211B # TO GIVE REPORT [phone] [facility] WITH [facility] PERSONNEL SECURITY ASSISTANT TIME 6PM NOTIFIED HONEY GARCIA.
--- NOTE | 2019-09-09 16:05 | NUR ---
PATIENT ARRIVED BACK ON UNIT FROM OR PT AWAKE IN BED PT APPEARS STABLE AND IN NO APPARENT DISTRESS. ALL SAFETY MEASURES ARE IN PLACE WILL CONTINUE TO MONITOR
[2019-09-09 16:34] VITALS: BP 162/79
--- NOTE | 2019-09-09 16:48 | NUR ---
SPOKE WITH DR. SHIELDS REGARDING PT'S ISSUE WITH DIALYSIS AT [facility]. PER DR. SHIELDS, HE WANTS THE PT TO HAVE DIALYSIS TODAY BEFORE TRANSFERRING TO [facility]. CALLED ENMANUEL AT [facility] AND MADE HIM AWARE. PER ENMANUEL, PT CAN STILL GO TO [facility] AFTER HD TONIGHT. DIALYSIS NURSE AMADO IS AT THE STATION AND NOTIFIED OF DR. SHIELDS'S HD ORDER. CALLED [facility], SPOKE WITH CLAUDINE. [facility] ON WILL CALL. [place]ALO ASSIGNED AWARE.
--- NOTE | 2019-09-09 16:52 | NUR ---
RECEIVED PHONE CALL FROM ENMANUEL [place] HE STATED THAT THE PATIENT WILL NO BE ABLE TO RECEIVED HD TONIGHT SINCE IT HAS PASSED 1600 AND THEY WILL NOT HAVE A NURSE. INFORMED CHARGE NURSE JORJE ABOUT THE ISSUE
--- NOTE | 2019-09-09 17:30 | NUR ---
OBTAINED CONSENT FOR HD PLACED IN CHART. UPDATED PT AND PT FAMILY ON PLAN OF CARE. PLANNING ON PT RECEIVING HD AT OUR FACILITY AND THEN PT WILL BE TRANSPORTED TO [facility] AFTER HD IS COMPLETED.
--- NOTE | 2019-09-09 18:11 | NUR ---
PAGED VICE PRESIDENT [facility] TO OBTAIN PAIN MEDICATIONS FOR PT PT STATES SHES IN A LOT OF PAIN
[2019-09-09] MEDS ORDERED: HYDROcodone/APAP 5/325 MG 1 TAB TAB PO PRN (18:20)
--- NOTE | 2019-09-09 18:47 | NUR ---
CALLED [facility]. GAVE REPORT TO HUNG GARCIA
--- NOTE | 2019-09-09 19:21 | NUR ---
ENDORSED PT TO PM RN PT AWAKE IN BED PT APPEARS STABLE AND IN NO APPARENT DISTRESS. ALL SAFETY MEASURES ARE IN PLACE. HD NURSE AT BEDSIDE. WILL BEGIN HD SOON. HD CONSENT IN CHART.
--- NOTE | 2019-09-09 19:22 | NUR ---
PT RESTING, NO DISTRESS NOTED, RECEIVED BEDSIDE REPORT FROM AM NURSE HONEY RN, PT STABLE, PT ON 2LPM O2 VIA NC, NO SOB NOTED, PT IS GOING TO HAVE HEMODIALYSIS, FLORAL MANAGER AT BEDSIDE SETTING UP, IV TO L FA 20G, PATENT, INTACT, INFUSING WELL, INITIAL ASSESSMENT DONE, ALL SAFETY PRECAUTION MET, CALL LIGHT WITHIN REACH, WILL CONTINUE TO MONITOR.
[2019-09-09 20:00] VITALS: BP 166/80
--- NOTE | 2019-09-09 20:00 | NUR ---
PT BP 166/80 CURRENTLY HAVING DIALYSIS, WILL ADMINISTER BP MEDICATION AFTER PT FINISH DIALYSIS.
--- NOTE | 2019-09-09 20:25 | NUR ---
HEMODIALYSIS IN PROGRESS AT THIS TIME LOC QUIET NO EVIDENCE OF PULMONARY DISTRESS NOTED GOOD CHEST RISE
--- NOTE | 2019-09-09 21:30 | NUR ---
HEMODIALYSIS COMPLETED, PT STABLE, NO DISTRESS NOTED, CALL LIGHT WITHIN REACH, WILL CONTINUE TO MONITOR. CALLED [facility], WAS TOLD THAT WILL HAND KNITTER PATIENT AT 0300, WILL NOTIFY [facility] HUIZAR REGARDING PT UPDATE. Addendum: 09/09/19 at 2210 by Elba Roberson RN HEMODIALYSIS 500ML TAKEN OUT PER DENTAL SECRETARY.
[2019-09-09] MEDS: SIMVASTATIN 20 MG TAB PO SCH (21:40)
--- NOTE | 2019-09-09 21:47 | NUR ---
DUE MEDICATION ADMINISTERED, PT TOLERATED WELL, NO DISTRESS NOTED, CALL LIGHT WITHIN REACH, WILL CONTINUE TO MONITOR.
--- NOTE | 2019-09-09 22:06 | NUR ---
CALLED [facility] REGARDING PT TRANSFER TO [facility], PER [facility] WILL NOT BE ABLE TO TRANSFER PATIENT UNTIL 3AM IN THE MORNING, CALLED [facility] AT [phone], NOTIFIED THEM THAT PT WILL BE TRANSPORTED AROUND 3AM IN THE MORNING, SPOKE TO RN IN THE UNIT, STATED UNDERSTANDING.
[2019-09-10] VITALS: BP 141/62
[2019-09-10 01:30] VITALS: BP 141/62
[2019-09-10] MEDS: IPRATROPIUM 0.02% 0.5 MG/2.5 ML NEBU IH SCH (01:55)
[2019-09-10] MEDS: ALBUTEROL 0.083% 2.5 MG/3 ML NEBU IH SCH (01:56)
--- NOTE | 2019-09-10 02:23 | NUR ---
DISCHARGE INSTRUCTION GIVEN, PT SIGN ALL DISCHARGE PAPERS, PT STATED UNDERSTANDING THAT SHE IS BEING TRANSFERRED TO [facility]. UPDATE REPORT GIVEN TO RN IN [facility], PER RN TO LEAVE IV IN SINCE PT IS CONTINUING IN PT MEDICATION FERRICLIT, PT RESTING, NO DISTRESS NOTED, CALL LIGHT WITHIN REACH.
--- NOTE | 2019-09-10 02:44 | NUR ---
PT LEFT WITH [facility] ALL DISCHARGE PAPERS AND BELONGING WITH PT, IV INTACT, WRIST BAND TAKEN OFF. PT STABLE.
[2019-09-13] MEDS ORDERED: EPOETIN ALFA 20,000 UNITS/ML VIAL SUBQ SCH (09:00)
== END 2019-09-10 02:40 | DRG 720 ==
LOC: MED 08:06 → MTU 14:29
PROVIDERS: ADMIT Internal Medicine Pulmonary Disease; ATTEND Internal Medicine Pulmonary Disease
PROC: 5A09357 Assistance with Respiratory Ventilation, Less than 24 Consecutive Hours, Continuous Positive Airway Pressure (ICD-10-PCS; 2019-09-03)
PROC: 5A09357 Assistance with Respiratory Ventilation, Less than 24 Consecutive Hours, Continuous Positive Airway Pressure (ICD-10-PCS; 2019-09-04)
PROC: 0JH63XZ Insertion of Tunneled Vascular Access Device into Chest Subcutaneous Tissue and Fascia, Percutaneous Approach (ICD-10-PCS; 2019-09-09)
PROC: 02H633Z Insertion of Infusion Device into Right Atrium, Percutaneous Approach (ICD-10-PCS; 2019-09-09)
PROC: B5181ZA Fluoroscopy of Superior Vena Cava using Low Osmolar Contrast, Guidance (ICD-10-PCS; 2019-09-09)
PROC: B548ZZA Ultrasonography of Superior Vena Cava, Guidance (ICD-10-PCS; 2019-09-09)
PROC: 5A1D70Z Performance of Urinary Filtration, Intermittent, Less than 6 Hours Per Day (ICD-10-PCS; principal; 2019-09-09 12:00)
DX: A41.9 Sepsis, unspecified organism (principal); N17.0 Acute kidney failure with tubular necrosis; J96.01 Acute respiratory failure with hypoxia; E11.10 Type 2 diabetes mellitus with ketoacidosis without coma; E44.0 Moderate protein-calorie malnutrition; J18.9 Pneumonia, unspecified organism; E11.22 Type 2 diabetes mellitus with diabetic chronic kidney disease; F17.210 Nicotine dependence, cigarettes, uncomplicated; D50.9 Iron deficiency anemia, unspecified; I13.0 Hypertensive heart and chronic kidney disease with heart failure and stage 1 through stage 4 chronic kidney disease, or unspecified chronic kidney disease; I50.9 Heart failure, unspecified; N18.3 Chronic kidney disease, stage 3 (moderate); J44.1 Chronic obstructive pulmonary disease with (acute) exacerbation; E11.65 Type 2 diabetes mellitus with hyperglycemia; N18.9 Chronic kidney disease, unspecified; N12 Tubulo-interstitial nephritis, not specified as acute or chronic; J44.9 Chronic obstructive pulmonary disease, unspecified; Z90.49 Acquired absence of other specified parts of digestive tract; D64.9 Anemia, unspecified; B34.9 Viral infection, unspecified; E66.9 Obesity, unspecified; Z68.29 Body mass index [BMI] 29.0-29.9, adult; E78.5 Hyperlipidemia, unspecified; I16.0 Hypertensive urgency; E87.2 Acidosis
CPT/HCPCS: 36415; 36600; 71045; 76700; 80053; 81001; 82550; 82728; 82803; 82948; 83540; 83605; 83735; 83880; 84100; 84484; 85025; 85610; 85730; 87040; 87081; 87086; 87804; 93005; 93976; 94640; 94660; 96365; 96367; 96375; 97110; 97112; 97116; 97530; 99285; C1750; C1894; J0456; J0690; J0696; J1644; J1815; J1940; J2001; J2060; J2250; J2270; J2405; J2543; J2916; J3010; J3490; J7030; J7060; J7120; J7613; J7626; J7644; Q0092

== ENCOUNTER 2019-10-24 12:47 | Inpatient (IN) | payer OTHER ==
[~2019-10-24] VITALS: Ht 157.5 cm; Wt 74.8 kg
[~2019-10-24 12:47] MED LIST changes: +ALBU0.0912 IH; -BECL10.62 IH; -FURO-570 PO; -PRON INH
[2019-10-24 13:38] VITALS: BP 157/89
--- NOTE | 2019-10-24 13:50 | NUR ---
Pt ambulated to bed 2.
--- NOTE | 2019-10-24 14:06 | NUR ---
54 Y/O F C/O FEVER CHILLS. PT HAD A CENTRAL LINE PLACED FOR DIALYSIS TREATMENT ON 09-12-19. PT WAS TOLD IF SHE HAS ANY FEVER OR CHILLS TO GO TO THE ED FOR EVALUATION TO CHECK FOR INFECTION. PT STATES SHE HAS A CULTURE DONE ON THURSDAY TO CHECK FOR INFECTION. PT PLACED ON 2 L O2, POSITIONED FOR COMFORT, BED LOWERED, X1 SIDE RAIL IN PLACE. MEDHX: DM, HTN, CHF, COPD
--- NOTE | 2019-10-24 14:36 | NUR ---
LAB AT BEDSIDE.
[2019-10-24 14:44] LABS: BASOPHILS # (AUTO) 0.1 K/uL (0.00-0.22); BASOPHILS % (AUTO) 0.9 % (0.0-2.0); EOSINOPHILS # (AUTO) 0.3 K/uL (0-0.4); EOSINOPHILS % (AUTO) 2.5 % (0.0-4.0); HEMATOCRIT 39.6 % (36-48); HEMOGLOBIN 12.6 g/dL (12.0-16.0); LYMPHOCYTES # (AUTO) 1.2 K/uL (2.5-16.5); LYMPHOCYTES % (AUTO) 11.6 % (20.5-51.1); MEAN CORPUSCULAR HEMOGLOBIN 27 pg (27-31); MEAN CORPUSCULAR HGB CONC 32 g/dL (33-37); MEAN CORPUSCULAR VOLUME 85.4 fL (80-94); MONOCYTES # (AUTO) 0.5 K/uL (0.8-1.0); NEUTROPHILS # (AUTO) 8.5 K/uL (1.8-7.7); PLATELET COUNT (AUTO) 267 K/uL (140-450); RED BLOOD CELL COUNT(AUTO) 4.64 MIL/uL (4.20-5.40); RED CELL DISTRIBUTION WIDTH 18.2 % (11.6-13.7); WHITE BLOOD COUNT (AUTO) 10.6 K/uL (4.8-10.8)
[2019-10-24] MEDS ORDERED: ALBUTEROL SULFATE/IPRATROPIU 3 ML SOL IH ONE (14:45)
--- NOTE | 2019-10-24 14:48 | NUR ---
EKG AT BEDSIDE.
--- NOTE | 2019-10-24 15:05 | NUR ---
HHN THERAPY AND RESPIRATORY DRUG GIVEN ORDERED
--- NOTE | 2019-10-24 15:05 | NUR ---
RT AT BEDSIDE.
[2019-10-24 15:23] LABS: CARBON DIOXIDE 24.5 mmol/L (21-32); CREATININE 3.8 mg/dL (0.6-1.3); POTASSIUM 4.5 mmol/L (3.5-5.1); PROTHROMBIN TIME 9.3 secs (10.8-13.4); TOTAL BILIRUBIN 0.4 mg/dL (0.0-1.0)
[2019-10-24] MEDS ORDERED: PIPERACILLIN/TAZOBACTAM 3.375 GM in DEXTROSE 5% 50 ML IV ONE (15:25)
[2019-10-24] MEDS ORDERED: NITROGLYCERIN 2% 1 GM PKT TP ONE (15:25)
[2019-10-24] MEDS ORDERED: FUROSEMIDE 40 MG/4 ML VIAL IVP ONE (15:25)
--- NOTE | 2019-10-24 15:28 | NUR ---
STUDENTS OBTAINING URINE SAMPLE WITH STRAIGHT CATH AT BEDSIDE.
[2019-10-24] MEDS ORDERED: PIPERACILLIN/TAZOBACTAM 3.375 GM VIAL IV ONE (15:39)
[2019-10-24] MEDS ORDERED: DEXTROSE 5% 50 ML IV ONE (15:40)
[2019-10-24 16:37] LABS: BILIRUBIN,URINE NEGATIVE (NEGATIVE); BLOOD, URINE TRACE-I (NEGATIVE); COLOR,URINE YELLOW (YELLOW); LEUKOCYTE ESTERASE ,URINE NEGATIVE (NEGATIVE); NITRITE, URINE NEGATIVE (NEGATIVE); UGLUCOSE 3+ (NEGATIVE)
[2019-10-24 16:52] LABS: APPEARANCE,URINE CLEAR (CLEAR)
[2019-10-24 16:53] LABS: RBC,URINE 0-5 /HPF (0-5)
[2019-10-24 16:54] LABS: WBC,URINE 0-5 /HPF (0-5)
[2019-10-24] MEDS ORDERED: ENOXAPARIN 30 MG/0.3 ML SYR SUBQ SCH (18:30)
--- NOTE | 2019-10-24 18:30 | NUR ---
PT ADMITTED TO [facility] FROM ER. PT AAOX4, DENIES PAIN, NO DISTRESS NOTED. RESPIRATIONS EVEN AND UNLABORED ON 2L O2 NASAL CANNULA. IV IN L HAND 20G PATENT AND ASYMPTOMATIC, SALINE LOCKED. SKIN INTACT. NO FEVER AT THE TIME AT ADMISSION. SAFETY MEASURES IN PLACE. BED IN LOW POSITION. CALL LIGHT WITHIN REACH. WILL ENDORSE CARE TO NIGHT NURSE.
--- NOTE | 2019-10-24 18:38 | NUR ---
Patient will be admitted to care of DR. NAVARRO. Admited to MED SURG TELE. Will go to room 117A. Belongings list completed. Report to RADHA BARTH.
--- NOTE | 2019-10-24 19:29 | NUR ---
REPORT GIVEN TO NIGHT NURSE FOR CONTINUITY OF CARE.
--- NOTE | 2019-10-24 19:30 | NUR ---
RECEIVED PATIENT FROM AM SHIFT NURSE. PATIENT LYING IN BED AWAKE. IV ACCESS ON LEFT HAND 20 GAUGE PATENT AND INTACT. INITIAL ASSESSMENT DONE. TELE MONITORING IN PLACE. PATIENT IS AMBULATORY. SKIN IS INTACT BUT NOTED WITH OLD SCABS ON BACK FROM SCRATCHING. ALSO NOTED WITH HEMODIALYSIS ACCESS ON RIGHT CHEST. ON 2LPM O2 VIA NASAL CANNULA. CALL LIGHT PLACED WITHIN PATIENT REACH. BED IN LOW. WILL CONTINUE TO MONITOR PATIENT.
[2019-10-24] MEDS: ALBUTEROL 0.083% 2.5 MG/3 ML NEBU INH SCH (19:39)
--- NOTE | 2019-10-24 19:40 | NUR ---
RECEIVED PT ON 2L NC WITH SP02 92%. RALES BREATH SOUNDS. PT IN NO RESPIRATORY DISTRESS. TX GIVEN ORDERED WITH NO ADVERSE REACTION. WILL CONTINUE TO MONITOR PT
--- NOTE | 2019-10-24 21:25 | NUR ---
ROUNDS DONE. VISIBLE CHEST RISE AND FALL NOTED. WILL CONTINUE TO MONITOR PATIENT.
[2019-10-24] MEDS: PIPERACILLIN/TAZOBACTAM 2.25 GM in DEXTROSE 5% 50 ML IV SCH (22:01)
[2019-10-24] MEDS: MORPHINE SULFATE 2 MG/ML SYR IVP PRN (22:01)
--- NOTE | 2019-10-24 23:04 | NUR ---
ROUNDS DONE. VISIBLE CHEST RISE AND FALL NOTED. WILL CONTINUE TO MONITOR PATIENT.
[2019-10-25 00:10] VITALS: BP 158/82
--- NOTE | 2019-10-25 00:25 | NUR ---
VITALS TAKEN. NO DISTRESS NOTED. WILL CONTINUE TO MONITOR PATIENT.
[2019-10-25] MEDS: ALBUTEROL 0.083% 2.5 MG/3 ML NEBU INH SCH ×4 (01:12→19:00)
--- NOTE | 2019-10-25 03:08 | NUR ---
ROUNDS DONE. VISIBLE CHEST RISE AND FALL NOTED. WILL CONTINUE TO MONITOR PATIENT.
[2019-10-25 04:15] VITALS: BP 149/73
--- NOTE | 2019-10-25 05:07 | NUR ---
ROUNDS DONE. VISIBLE CHEST RISE AND FALL NOTED. WILL CONTINUE TO MONITOR PATIENT.
[2019-10-25] MEDS: PIPERACILLIN/TAZOBACTAM 2.25 GM in DEXTROSE 5% 50 ML IV SCH ×3 (05:21→21:26)
[2019-10-25 06:40] LABS: BASOPHILS # (AUTO) 0.1 K/uL (0.00-0.22); BASOPHILS % (AUTO) 0.7 % (0.0-2.0); EOSINOPHILS # (AUTO) 0.3 K/uL (0-0.4); EOSINOPHILS % (AUTO) 3.6 % (0.0-4.0); HEMATOCRIT 34.5 % (36-48); HEMOGLOBIN 10.9 g/dL (12.0-16.0); LYMPHOCYTES # (AUTO) 1.4 K/uL (2.5-16.5); MEAN CORPUSCULAR HEMOGLOBIN 27 pg (27-31); MEAN CORPUSCULAR HGB CONC 32 g/dL (33-37); MEAN CORPUSCULAR VOLUME 85.7 fL (80-94); MONOCYTES # (AUTO) 0.6 K/uL (0.8-1.0); MONOCYTES % (AUTO) 6.7 % (1.7-9.3); PLATELET COUNT (AUTO) 274 K/uL (140-450); RED BLOOD CELL COUNT(AUTO) 4.02 MIL/uL (4.20-5.40); RED CELL DISTRIBUTION WIDTH 18.4 % (11.6-13.7); WHITE BLOOD COUNT (AUTO) 9.5 K/uL (4.8-10.8)
--- NOTE | 2019-10-25 07:20 | NUR ---
PATIENT IN STABLE CONDITION. CALL LIGHT WITHIN PATIENT REACH. ENDORSED TO AM SHIFT NURSE FOR CONTINUITY OF CARE.
--- NOTE | 2019-10-25 07:21 | NUR ---
RECEIVED REPORT FROM HOT HEAD MACHINE OPERATOR. PATIENT IN STABLE CONDITION, RESTING IN BED. RESPIRATIONS EVEN, UNLABORED ON 2L NC. IV INTACT AND PATENT. SAFETY MEASURES IN PLACE. BED IN LOWEST POSITION CALL LIGHT AT BEDSIDE. WILL CONTINUE TO MONITOR.
[2019-10-25 07:33] LABS: ALBUMIN 1.6 g/dL (3.4-5.0); ANION GAP 15.6 (8-16); CARBON DIOXIDE 22.6 mmol/L (21-32); POTASSIUM 4.2 mmol/L (3.5-5.1); TOTAL BILIRUBIN 0.3 mg/dL (0.0-1.0)
--- NOTE | 2019-10-25 07:54 | NUR ---
AWAKE AND ALERT NO DISTRESS NOTED PATIENT WITH BREAKFAST TRAY MANAGER APPLICATION TO ATTEMPT HHN THERAPY AND RESPIRATORY DRUG AT A LATER TIME
[2019-10-25 08:00] VITALS: BP 140/75
[2019-10-25 08:15] LABS: CREATININE 4.1 mg/dL (0.6-1.3)
--- NOTE | 2019-10-25 08:25 | NUR ---
SUSHMA AND ALERT PATIENT C/O OF NASAL DRYNESS POST HHN THERAPY ADDED A HUMIDIFIER Addendum: 10/25/19 at 0839 by Marquis Stark RT SUSHMA=AWAKE
--- NOTE | 2019-10-25 08:46 | NUR ---
PATIENT HAS BEEN SCREENED AND CATEGORIZED MODERATE NUTRITION RISK. PATIENT WILL BE SEEN WITHIN 3-5 DAYS OF ADMISSION. 10/27/19 10/29/[address]
[2019-10-25] MEDS: MORPHINE SULFATE 2 MG/ML SYR IVP PRN ×2 (09:47→13:54)
--- NOTE | 2019-10-25 09:47 | NUR ---
PATIENT C/O THROBBING MIGRAINE 6/10 PAIN. MEDICATED ORDERED, TOLERATED WELL. PATIENT RESTING IN BED. LOW STIMULI ENVIRONMENT PROVIDED WITH LIGHTS DIMMED. RESPIRATIONS EVEN, UNLABORED. IV SITE INTACT WITH NO S/SX INFILTRATION NOTED. ALL OTHER NEEDS ATTENDED TO. WILL CONTINUE TO MONITOR.
--- NOTE | 2019-10-25 10:17 | NUR ---
PATIENT RESTING IN BED, COMFORTABLY. VERBALIZED RELIEF FROM PAIN 2/10, TOLERABLE. RESPIRATIONS EVEN, UNLABORED. IV SITE INTACT. NO S/SX ACUTE DISTRESS. ALL NEEDS ATTENDED TO. PATIENT CLEAN/DRY. CALL LIGHT WITHIN REACH. WILL CONTINUE TO MONITOR.
--- NOTE | 2019-10-25 11:11 | NUR ---
Photoresist Printer Note: Basic Screen: Yes High Risk DC Screen Yes Name: RISA AGUILAR Home Relationship: DAUGHTER Pre-Admission Living Arrangements: Lives with Other Prior ADL Needs Assistance Current Home Health Name/Tel: PATIENT CANNOT RECALL AGENCY Current DME/02 Name/Tel: WHEELCHAIR, WALKER, OXYGEN 2L Current Hospice Name/Tel: N/A Current Dialysis Name/Tel: PATIENT CANNOT RECALL AGENCY Healthcare Decision Maker: Patient Advance Directive No - REFUSED Patient/Family Have Educational Needs No Information Taught: Advance Directive Person Taught: Patient Teaching Tools: Verbal Factors Affecting Learning: None Participation Level: Refused Evaluation: Verbalizes Understanding Needs Additional Education: No Discipline: Case Mgt/Social Svcs Tentative Discharge Plan/Destination: No Needs Identified Will require assistance post discharge: No Referred to Seal Mixing Operator: No Tentative Discharge Plan Summary: Patient is a 54-year-old female admitted for CHF. Patient has PMHX of chronic hypoxemic respiratory failure secondary to chronic obstructuve pulmonary disease, hypertension as well as end-stage renal disease, and is on hemodialysis. Patient was admitted from home. SW verified demographics with patient at bedside. Patient was unable to recall agencies where she receives home health and dialysis. Patient referred SW to patient's daughter Risa Aguilar [phone] for information. Patient reported no history of mental health and no history of substance abuse. Patient's tentative plan after discharge is to return home. SW contacted Risa Aguilar for information regarding home health and dialysis. SW left voicemail to patient's daughter. SW will follow up as needed. Signature: PAULA Jimenez Date: Oct 25, 2019 Time: 11:09
[2019-10-25 12:00] VITALS: BP 148/74
--- NOTE | 2019-10-25 12:00 | NUR ---
PATIENT RESTING COMFORTABLY IN BED. RESPIRATIONS EVEN, UNLABORED. SKIN WARM, DRY AND INTACT. IV SITE TO LEFT HAND PATENT WITH NO S/SX INFILTRATION. NO C/O PAIN. NO S/SX ACUTE DISTRESS NOTED. ALL NEEDS ANTICIPATED AND MET. CALL LIGHT WITHIN REACH. WILL CONTINUE TO MONITOR.
--- NOTE | 2019-10-25 13:54 | NUR ---
PATIENT IN BED WITH C/O MIGRAINE 04/18. MEDICATED ORDERED, TOLERATED WELL. IV SITE INTACT, PATENT. CALL LIGHT WITHIN REACH. WILL CONTINUE TO MONITOR.
--- NOTE | 2019-10-25 14:04 | NUR ---
PCP Appointment: JAIME contacted Vivian from [facility] to arrange hospital follow up for patient [phone]. JAIME made hospital follow up appointment for 1400 on 11/03/2019 @ [address] [place] [address]. Appointment was left in patient's chart to be given at discharge. No further needs identified.
--- NOTE | 2019-10-25 14:24 | NUR ---
PATIENT IN BED, STATED RELIEF FROM PAIN 2/10, TOLERABLE. CONTINUE TO PROVIDE COMFORTABLE ENVIRONMENT WITH DIM LIGHTS AND LOW STIMULI. RESPIRATIONS EVEN, UNLABORED. NO S/SX ACUTE DISTRESS. ALL NEEDS ATTENDED TO. CALL LIGHT WITHIN REACH. WILL CONTINUE TO MONITOR.
--- NOTE | 2019-10-25 15:31 | NUR ---
DC PLANN[age] YRS OLD FEMALE PT ADMITTED FROM HOME WITH A DX OF CHF. PT HAS A HX OF CHF, COPD ,DM, HTN AND ESRD HEMODIALYSIS M AND F . ADMINISTERED ZOSYN , NEPHROLOGY CONSULT WITH DR STEVEN . BLOOD CULTURE PENDING. DC PLAN TO GO HOME WHEN STABLE CM TO FOLLOW. Addendum: 10/26/19 at 1355 by Tammi Good CM DC PLANNING PT HAS A DC ORDER AFTER HEMODIALYSIS .STABLE TO BE DISCHARGED HOME AND FOLLOW UP WITH PCP AND [facility]ER.
[2019-10-25 16:00] VITALS: BP 119/68
[2019-10-25] MEDS: BLOOD GLUCOSE MONITORING 1 DEV DEV FS SCH ×2 (16:30→22:27)
--- NOTE | 2019-10-25 16:45 | NUR ---
Antonino PRINCE DIALYSIS ORDERS: 3.5 HOURS, SODIUM 140, ALBUMIN 25%, POTASSIUM 3, BICARB 30, CALCIUM 2.5, PRECIPITATION EQUIPMENT TENDER <90, BLOOD FLOW 250-350, DFR 500, NO HEPARIN, SALINE LOCK AFTER DIALYSIS.
[2019-10-25] MEDS: KETOROLAC 10 MG TAB PO PRN (16:53)
--- NOTE | 2019-10-25 17:50 | NUR ---
PT SIGNED DIALYSIS CONSENT AT THIS TIME.
[2019-10-25] MEDS: INSULIN LISPRO SLIDING SCALE 100 UNITS/ML VIAL SUBQ PRN ×2 (18:04→22:30)
--- NOTE | 2019-10-25 18:05 | NUR ---
DIALYSIS STARTED AT THIS TIME. PT IN STABLE CONDITION.
--- NOTE | 2019-10-25 19:25 | NUR ---
GAVE REPORT TO PUBLIC SPEAKING INSTRUCTOR NURSE FOR CONTINUITY OF CARE. PT IN STABLE CONDITION.
[2019-10-25 20:00] VITALS: BP 111/66
--- NOTE | 2019-10-25 20:00 | NUR ---
RECEIVED PATIENT IN BED, CURRENTLY HAVING DIALYSIS. PT AWAKE, ALERT AND ORIENTED. NO S/S OF DISTRESS NOTED, DENIES PAIN AT THIS TIME. PT ON 2L NC. O2 SAT 99% AT THIS TIME. PT ON TELE MONITORING. BED LOWERED WITH CALL LIGHT WITHIN REACH
--- NOTE | 2019-10-25 20:01 | NUR ---
RECEIVED PATIENT ON 2L NC, PULSE OX SAT 97%. PATIENT RECEIVING DIALYSIS AT THIS TIME. DIALYSIS NURSE AT BEDSIDE STATED NOT TO GIVE MEDICATION AT THIS TIME. WILL RETURN AFTER DIALYSIS TO ASSESS PATIENT. NO RESPIRATORY DISTRESS NOTED AT THIS TIME. WILL CONTINUE TO MONITOR.
[2019-10-25] MEDS ORDERED: SIMVASTATIN 20 MG TAB PO SCH (21:00)
--- NOTE | 2019-10-25 21:15 | NUR ---
HD DONE. 1500ML OUT. BP 108/64, HR 80 TEMP 98.0. PATIENT AWAKE AND ALERT. NO S/S OF DISTRESS NOTED
[2019-10-25] MEDS: GABAPENTIN 300 MG CAP PO SCH (21:25)
[2019-10-25] MEDS: INSULIN LANTUS 100 UNITS/ML 10 ML VIAL SUBQ SCH (22:29)
[2019-10-26] VITALS: BP 165/71
[2019-10-26] MEDS: ALBUTEROL 0.083% 2.5 MG/3 ML NEBU INH SCH ×4 (01:34→13:46)
--- NOTE | 2019-10-26 01:44 | NUR ---
PATIENT ON ROOM AIR, PULSE OX SAT 93%. SCHEDULED BREATHING TREATMENT ADMINISTERED, TOLERATED TX WELL WITHOUT ADVERSE SIDE EFFECTS. NO ACUTE RESPIRATORY DISTRESS NOTED. PLACED BACK ON NASAL CANNULA AT 2L. WILL CONTINUE TO MONITOR.
[2019-10-26] MEDS: MORPHINE SULFATE 2 MG/ML SYR IVP PRN (01:48)
--- NOTE | 2019-10-26 03:33 | NUR ---
PT ASLEEP IN BED. NO S/S OF DISTRESS NOTED
[2019-10-26] MEDS ORDERED: cloNIDine 0.1 MG TAB PO PRN (03:35)
[2019-10-26] MEDS: PIPERACILLIN/TAZOBACTAM 2.25 GM in DEXTROSE 5% 50 ML IV SCH ×2 (04:37→12:30)
[2019-10-26] MEDS: KETOROLAC 10 MG TAB PO PRN (04:51)
[2019-10-26 05:10] VITALS: BP 139/79
[2019-10-26] MEDS: BLOOD GLUCOSE MONITORING 1 DEV DEV FS SCH ×2 (06:17→11:52)
--- NOTE | 2019-10-26 07:24 | NUR ---
PT REPORT GIVEN AT BEDSIDE. PT ENDORSED IN STABLE CONDITION
--- NOTE | 2019-10-26 07:32 | NUR ---
Shift report received from slot shift manager nurse. Pt is in bed in stable condition. Call light in reach.
[2019-10-26 08:00] VITALS: BP 148/74
[2019-10-26] MEDS ORDERED: LISINOPRIL 20 MG TAB PO SCH (09:00)
[2019-10-26] MEDS ORDERED: LOSARTAN 25 MG TAB PO SCH (09:00)
[2019-10-26] MEDS ORDERED: METOPROLOL 25 MG TAB PO SCH (09:00)
[2019-10-26] MEDS: GABAPENTIN 300 MG CAP PO SCH (09:18)
[2019-10-26] MEDS: INSULIN LANTUS 100 UNITS/ML 10 ML VIAL SUBQ SCH (09:23)
--- NOTE | 2019-10-26 10:00 | NUR ---
Pt is in bed in stable condition. Call light in reach.
[2019-10-26] MEDS ORDERED: AMOX-999 PO (11:36)
[2019-10-26 12:00] VITALS: BP 157/78
--- NOTE | 2019-10-26 12:00 | NUR ---
Pt is in bed in stable condition. Call light in reach.
[2019-10-26] MEDS: INSULIN LISPRO SLIDING SCALE 100 UNITS/ML VIAL SUBQ PRN (12:31)
--- NOTE | 2019-10-26 14:00 | NUR ---
Pt is in bed in stable condition. Family by bedside. Call light in reach.
--- NOTE | 2019-10-26 14:58 | NUR ---
Pt was discharged to day. Pt's discharge instructions given to patient. Pt's belonging with patient. PT's IV removed. Catheter removed. No active bleeding noted. Pt's ID band removed. Pt walked with a steady gait from bed to wheel chair. No distress noted. No SOB noted. Daughter at bedside at time of discharge. Pt will follow up with PCP within seven days upon discharge. Prescription given to patient.
== END 2019-10-26 14:45 | disposition home or self-care (01) | DRG 139 ==
LOC: MED 12:47 → MTU 16:48
PROVIDERS: ADMIT Internal Medicine; ATTEND Internal Medicine
PROC: 5A1D70Z Performance of Urinary Filtration, Intermittent, Less than 6 Hours Per Day (ICD-10-PCS; principal; 2019-10-25)
DX: J18.9 Pneumonia, unspecified organism (principal); E43 Unspecified severe protein-calorie malnutrition; I13.2 Hypertensive heart and chronic kidney disease with heart failure and with stage 5 chronic kidney disease, or end stage renal disease; J96.11 Chronic respiratory failure with hypoxia; E11.22 Type 2 diabetes mellitus with diabetic chronic kidney disease; N18.6 End stage renal disease; D63.8 Anemia in other chronic diseases classified elsewhere; E78.00 Pure hypercholesterolemia, unspecified; J44.1 Chronic obstructive pulmonary disease with (acute) exacerbation; J44.0 Chronic obstructive pulmonary disease with (acute) lower respiratory infection; J98.11 Atelectasis; I50.43 Acute on chronic combined systolic (congestive) and diastolic (congestive) heart failure; Z99.2 Dependence on renal dialysis; Z87.891 Personal history of nicotine dependence; Z79.4 Long term (current) use of insulin; Z68.30 Body mass index [BMI] 30.0-30.9, adult; Z79.899 Other long term (current) drug therapy; Z99.81 Dependence on supplemental oxygen
CPT/HCPCS: 36415; 36600; 71045; 80053; 81001; 82803; 82948; 83605; 83880; 84484; 85025; 85610; 85730; 87040; 87081; 87086; 94640; 96365; 96366; 96375; 99285; J1650; J1815; J1940; J2270; J2543; J7030; J7060; J7613; J7620; Q0092

== ENCOUNTER 2019-11-19 15:51 | Inpatient (IN) | payer OTHER ==
[~2019-11-19] VITALS: Ht 157.5 cm; Wt 66.2 kg
[~2019-11-19 15:51] MED LIST changes: +AMOX-999 PO
[2019-11-19 15:55] VITALS: BP 148/55
--- NOTE | 2019-11-19 16:01 | NUR ---
PATIENT WHEELCHAIR ASSISTED TO BED 7.
--- NOTE | 2019-11-19 16:05 | NUR ---
54/F BIB FROM HOME C/O MID CHEST PAIN, CHILLS, COUGH X 1 DAY .MEDHX: HTN, CHF & ON O2 NC 2 LPM, ESRD WITH DIALYSIS ON M,F. LAST DIALYSIS YESTERDAY. PATIENT STATES PAIN OF 9/10 AT THIS TIME. PATIENT POSITIONED FOR COMFORT; HOB ELEVATED; BEDRAILS UP X2; BED DOWN. ER MD MADE AWARE OF PT STATUS.
--- NOTE | 2019-11-19 16:38 | NUR ---
Patient being evaluated by DR MATAMOROS at bedside.
[2019-11-19] MEDS ORDERED: ACETAMINOPHEN EXTRA STRENGTH 500 MG TAB PO ONE (16:45)
[2019-11-19] MEDS ORDERED: ACETAMINOPHEN EXTRA STRENGTH 500 MG TAB ONE (16:45)
[2019-11-19] MEDS ORDERED: predniSONE 20 MG TAB PO ONE (16:55)
[2019-11-19] MEDS ORDERED: ALBUTEROL 0.083% 2.5 MG/3 ML NEBU INH ONE (16:55)
[2019-11-19] MEDS ORDERED: IPRATROPIUM 0.02% 0.5 MG/2.5 ML NEBU INH ONE (16:55)
[2019-11-19] MEDS ORDERED: MAG SULF 2000 MG/WATER PREMIX 50 ML IV ONE (16:55)
--- NOTE | 2019-11-19 17:03 | NUR ---
[facility] THERAPY AND RESPIRATORY DRUGS GIVEN ORDERED ENCOURAGED PATIENT WITH ACKNOWLEDGEMENT FOR DEEP BREATHING DURING THERAPY
--- NOTE | 2019-11-19 17:33 | NUR ---
FLU SWAB COLLECTED
[2019-11-19 18:16] LABS: BASOPHILS # (AUTO) 0.1 K/uL (0.00-0.22); EOSINOPHILS # (AUTO) 0.1 K/uL (0-0.4); EOSINOPHILS % (AUTO) 1.5 % (0.0-4.0); HEMATOCRIT 42.3 % (36-48); HEMOGLOBIN 13.3 g/dL (12.0-16.0); LYMPHOCYTES # (AUTO) 0.9 K/uL (2.5-16.5); MEAN CORPUSCULAR HEMOGLOBIN 26 pg (27-31); MEAN CORPUSCULAR HGB CONC 32 g/dL (33-37); MEAN CORPUSCULAR VOLUME 83.3 fL (80-94); MONOCYTES # (AUTO) 0.5 K/uL (0.8-1.0); MONOCYTES % (AUTO) 5.8 % (1.7-9.3); NEUTROPHILS # (AUTO) 6.7 K/uL (1.8-7.7); NEUTROPHILS % (AUTO) 80.7 % (42.2-75.2); PLATELET COUNT (AUTO) 201 K/uL (140-450); RED BLOOD CELL COUNT(AUTO) 5.07 MIL/uL (4.20-5.40); RED CELL DISTRIBUTION WIDTH 17.2 % (11.6-13.7); WHITE BLOOD COUNT (AUTO) 8.3 K/uL (4.8-10.8)
--- NOTE | 2019-11-19 18:22 | NUR ---
FOOD TRAY PROVIDED TO PATIENT AT THIS TIME.
[2019-11-19 18:37] LABS: ALBUMIN 2.1 g/dL (3.4-5.0); ANION GAP 13.1 (8-16); CARBON DIOXIDE 22.1 mmol/L (21-32); CREATININE 3.5 mg/dL (0.6-1.3); POTASSIUM 4.2 mmol/L (3.5-5.1); TOTAL BILIRUBIN 0.5 mg/dL (0.0-1.0)
--- NOTE | 2019-11-19 19:08 | NUR ---
Pt report given to CHALO GARCIA. Transfer of care at this time.
--- NOTE | 2019-11-19 19:10 | NUR ---
RECIVED REPORT FROM AMANDA GARCIA.
[2019-11-19] MEDS ORDERED: LORazepam 2 MG/ML VIAL IVP PRN (19:15)
[2019-11-19] MEDS ORDERED: ALBUTEROL 0.083% 2.5 MG/3 ML NEBU INH PRN (19:15)
[2019-11-19] MEDS ORDERED: ONDANSETRON 4 MG/2 ML VIAL IVP PRN (19:15)
[2019-11-19] MEDS ORDERED: ACETAMINOPHEN 325 MG TAB PO PRN (19:15)
[2019-11-19] MEDS ORDERED: HYDROcodone/APAP 5/325 MG 1 TAB TAB PO PRN ×2 (19:15)
--- NOTE | 2019-11-19 19:19 | NUR ---
PT RESTING IN BED EYES OPEN AND TALKING ON THE PHONE. PT RESPIRATIONS ARE EVEN AND UNLABORED. SKIN IS WARM AND DRY TO TOUCH. PT AXO X4. PT DENIES PAIN AT THIS TIME. PT ATE 100% OF FOOD. BED LOCKED AND IN LOWEST POSITION.
[2019-11-19] MEDS ORDERED: INSU100V3 SQ (19:20)
[2019-11-19] MEDS ORDERED: INSU100I7 SQ (19:20)
[2019-11-19] MEDS ORDERED: ATOR10TA PO (19:20)
[2019-11-19] MEDS ORDERED: HYDR100T79 PO (19:20)
[2019-11-19] MEDS ORDERED: FURO-570 PO (19:20)
[2019-11-19] MEDS ORDERED: TIOT4MIS2 IH (19:20)
--- NOTE | 2019-11-19 19:50 | NUR ---
Patient will be admitted to care of DR. MICKEY ABREU. Admited to MST. Will go to room 114. Belongings list completed. Report to RAMSEY GARCIA.
[2019-11-19 20:00] VITALS: BP 103/58
--- NOTE | 2019-11-19 20:00 | NUR ---
ADMITTED THIS 54 YEAR OLD FEMALE FROM ER PER BRITTA WITH CC OF FEVER AND SOB, AMBULATED TO BED WITH STEADY GAIT, VITAL SIGNS STABLE, AFEBRILE, PUT ON O2 AT 2L NC WITH SAT-95%, NO SOB NOTED, COMPLAINING OF DOUGLAS LEG PAIN, WILL MEDICATE PRN, WITH DIALYSIS ACCESS TO RT CHEST ARACELI CATH, PUT ON DROPLET ISOLATION FOR POSITIVE INLUENZA A, PLAN OF CARE DISCUSSED, SAFETY MEASURES IN PLACE, CALL LIGHT WITHIN REACH.
[2019-11-19] MEDS ORDERED: DEXTROSE 50% 50 ML SYR IVP PRN (20:20)
[2019-11-19] MEDS ORDERED: AZITHROMYCIN 500 MG INJ VIAL IV ONE (20:50)
[2019-11-19] MEDS ORDERED: GABAPENTIN 300 MG CAP PO SCH (21:00)
[2019-11-19] MEDS ORDERED: OSELTAMIVIR PHOSPHATE 30 MG CAP PO SCH (21:00)
[2019-11-19] MEDS ORDERED: AZITHROMYCIN 500 MG in DEXTROSE 5% 250 ML IV SCH (21:00)
[2019-11-19] MEDS ORDERED: SIMVASTATIN 20 MG TAB PO SCH (21:00)
[2019-11-19] MEDS: BLOOD GLUCOSE MONITORING 1 DEV DEV FS SCH (21:01)
[2019-11-19] MEDS: INSULIN LISPRO SLIDING SCALE 100 UNITS/ML VIAL SUBQ PRN (21:29)
--- NOTE | 2019-11-19 21:30 | NUR ---
BLOOD SUGAR CHECKED WITH 346 RESULT, COVERAGE GIVEN, BEDTIME SNACK PROVIDED, DUE MEDS ADMINISTERED WITH EDUCATION PROVIDED, ALL NEEDS ATTENDED.
--- NOTE | 2019-11-19 22:40 | NUR ---
DR SIMMS HERE FOR NEPHRO CONSULT, NEW ORDER FOR HEMODIALYSIS TOMORROW, OYSTER TONGER CHERYL NOTIFIED FERNANDO CYANIDE FURNACE OPERATOR.
[2019-11-20] VITALS: BP 121/68
--- NOTE | 2019-11-20 | NUR ---
PT SLEEPING, EASILY AROUSABLE, VITAL SIGNS STABLE, NO SIGNS OF SOB, DENIES ANY PAIN, CONTINUE TO MONITOR CLOSELY.
[2019-11-20 04:00] VITALS: BP 149/85
--- NOTE | 2019-11-20 05:40 | NUR ---
BLOOD SUGAR CHECKED DONE WITH 433 RESULT, REPEAT BLOOD SUGAR CHECKED ON THE RT FINGER SHOWS 421, PAGED DR HOLDER, AWAITING CALL BACK, PT ASYMPTOMATIC, NO DISTRESS NOTED, MONITORED CLOSELY.
[2019-11-20] MEDS: INSULIN LISPRO SLIDING SCALE 100 UNITS/ML VIAL SUBQ PRN ×3 (06:02→16:45)
--- NOTE | 2019-11-20 06:02 | NUR ---
STILL NO CALL BACK FROM DR HOLDER, MAX SLIDING SCALE OF 10 UNITS HUMALOG ADMINISTERED, PT AAOX4, PT SIGNED CONSENT FOR HEMODIALYSIS TODAY, MONITORED CLOSELY.
[2019-11-20] MEDS: BLOOD GLUCOSE MONITORING 1 DEV DEV FS SCH ×3 (06:40→16:45)
--- NOTE | 2019-11-20 06:41 | NUR ---
PATIENT HAS BEEN SCREENED AND CATEGORIZED MODERATE NUTRITION RISK. PATIENT WILL BE SEEN WITHIN 3-5 DAYS OF ADMISSION. 11/22/19-11/24/19 NATANAEL SADLER MS, RDN
[2019-11-20 07:03] LABS: ALBUMIN 1.9 g/dL (3.4-5.0); ANION GAP 15.6 (8-16); CARBON DIOXIDE 20.1 mmol/L (21-32); POTASSIUM 4.7 mmol/L (3.5-5.1); TOTAL BILIRUBIN 0.3 mg/dL (0.0-1.0)
[2019-11-20 07:10] LABS: CREATININE 4.3 mg/dL (0.6-1.3)
--- NOTE | 2019-11-20 07:25 | NUR ---
RECEIVED REPORT FROM TEXTILE SCREEN MAKER NURSE. PATIENT IS FULL CODE, NKA. PATIENT IS POSITIVE FOR INFLUENZA A. PATIENT TO BE DIALYZED TODAY. CONSENT IN CHART. AAOX4, AMBULATORY, STILL VOIDS. WILL REVIEW AND CONTINUE WITH PLAN OF CARE FOR THE DAY.
--- NOTE | 2019-11-20 07:27 | NUR ---
PT SLEEPING, EASILY AROUSABLE, BLOOD SUGAR RECHECKED WITH 429 RESULT, NO DISTRESS NOTED, PAGED DR HOLDER, AWAITING CALL BACK, BEDSIDE REPORT GIVEN TO RADHA EDWARDS FOR CONTINUITY OF CARE.
[2019-11-20 07:31] LABS: BASOPHILS % (AUTO) 0.4 % (0.0-2.0); HEMATOCRIT 40.7 % (36-48); HEMOGLOBIN 12.9 g/dL (12.0-16.0); LYMPHOCYTES # (AUTO) 0.3 K/uL (2.5-16.5); LYMPHOCYTES % (AUTO) 4.9 % (20.5-51.1); MEAN CORPUSCULAR HEMOGLOBIN 27 pg (27-31); MEAN CORPUSCULAR HGB CONC 32 g/dL (33-37); MEAN CORPUSCULAR VOLUME 85.3 fL (80-94); MONOCYTES # (AUTO) 0.1 K/uL (0.8-1.0); MONOCYTES % (AUTO) 1.4 % (1.7-9.3); NEUTROPHILS # (AUTO) 5.2 K/uL (1.8-7.7); NEUTROPHILS % (AUTO) 93.3 % (42.2-75.2); PLATELET COUNT (AUTO) 196 K/uL (140-450); RED BLOOD CELL COUNT(AUTO) 4.78 MIL/uL (4.20-5.40); RED CELL DISTRIBUTION WIDTH 17.2 % (11.6-13.7); WHITE BLOOD COUNT (AUTO) 5.6 K/uL (4.8-10.8)
[2019-11-20 08:00] VITALS: BP 147/87
[2019-11-20] MEDS ORDERED: HYDROcodone/APAP 5/325 MG 1 TAB TAB PO PRN (08:08)
[2019-11-20] MEDS ORDERED: LOSARTAN 25 MG TAB PO SCH (09:00)
[2019-11-20] MEDS ORDERED: ASPIRIN 81 MG TAB.CHEW PO SCH (09:00)
[2019-11-20] MEDS ORDERED: LISINOPRIL 20 MG TAB PO SCH (09:00)
[2019-11-20] MEDS ORDERED: METOPROLOL 25 MG TAB PO SCH (09:00)
[2019-11-20] MEDS ORDERED: INSULIN LISPRO 100 UNITS/ML VIAL SUBQ SCH (09:48)
--- NOTE | 2019-11-20 09:50 | NUR ---
ADMINISTERED MORNING ASPIRIN. WITHHELD BLOOD PRESSURE MEDICATION D/T DIALYSIS TX TODAY. ADMINISTERED 30U HUMALOG FOR BLOOD SUGAR OF [address] HOLDER'S ORDERS.
[2019-11-20] MEDS ORDERED: INSULIN LANTUS 100 UNITS/ML 10 ML VIAL SUBQ SCH (11:20)
--- NOTE | 2019-11-20 11:53 | NUR ---
BLOOD SUGAR OF 400. ADMINISTERED HUMALOG 10U AND LANTUS 20U.
[2019-11-20 12:00] VITALS: BP 163/109
--- NOTE | 2019-11-20 14:00 | NUR ---
PATIENT SITTING UP IN BED, NO COMPLAINTS AT THIS TIME.
--- NOTE | 2019-11-20 15:44 | NUR ---
DIALYSIS NURSE ON THE WAY. PATIENT AWARE THAT SHE CAN BE DC AFTER DIALYSIS TREATMENT.
--- NOTE | 2019-11-20 15:48 | NUR ---
DISCHARGE PLANNING: A 54 Y/O FEMALE PATIENT FROM HOME, WHO CAME IN DUE TO DYSPNEA. PAST MEDICAL HISTORY INCLUDE CHF, COPD, HTN, DM AND ESRD ON HD MF AT [facility] WITH DR. STEVEN. INITIAL DIAGNOSIS OF CHF EXACERBATION. PATIENT IS STABLE FOR GA HOME TODAY.
[2019-11-20 16:00] VITALS: BP 134/87
--- NOTE | 2019-11-20 19:16 | NUR ---
RECEIVED PATIENT FROM AM SHIFT NURSE SVITLANA IN STABLE CONDITION. PATIENT IS CURRENTLY HAVING DIALYSIS DONE. NO C/O PAIN. NO S/SX ACUTE DISTRESS. CALL LIGHT WITHIN REACH. WILL CONTINUE TO MONITOR.
[2019-11-20 20:00] VITALS: BP 165/86
--- NOTE | 2019-11-20 20:00 | NUR ---
PATIENT'S OUTPUT 2.8 L. VS 165/86 HR 88 T 98.2. OFFERED PATIENT HER 2000 MEDICATIONS BUT SHE REFUSED STATING SHE WOULD TAKE HER MEDICATIONS WHEN SHE GOT HOME. RISKS AND BENEFITS EXPLAINED, PATIENT VERBALIZED UNDERSTANDING. AWAITING FOR LAW LIBRARIAN. WILL CONTINUE TO MONITOR.
--- NOTE | 2019-11-20 20:25 | NUR ---
PATIENT LEFT THE FACILITY IN STABLE CONDITION WITH ALL OF BELONGINGS, PICKED UP BY [facility]. EDUCATED PATIENT AND REGARDING DISCHARGE ORDERS, PATIENT VERBALIZED UNDERSTANDING.
== END 2019-11-20 20:25 | disposition home or self-care (01) | DRG 194 ==
LOC: MED 15:51 → MTU 19:19
PROVIDERS: ADMIT Internal Medicine Pulmonary Disease; ATTEND Internal Medicine Pulmonary Disease
PROC: 5A1D70Z Performance of Urinary Filtration, Intermittent, Less than 6 Hours Per Day (ICD-10-PCS; principal; 2019-11-20)
DX: I13.2 Hypertensive heart and chronic kidney disease with heart failure and with stage 5 chronic kidney disease, or end stage renal disease (principal); E11.00 Type 2 diabetes mellitus with hyperosmolarity without nonketotic hyperglycemic-hyperosmolar coma (NKHHC); J96.11 Chronic respiratory failure with hypoxia; E44.0 Moderate protein-calorie malnutrition; E11.22 Type 2 diabetes mellitus with diabetic chronic kidney disease; N18.6 End stage renal disease; J44.9 Chronic obstructive pulmonary disease, unspecified; I50.9 Heart failure, unspecified; Z79.899 Other long term (current) drug therapy; Z83.3 Family history of diabetes mellitus; Z82.49 Family history of ischemic heart disease and other diseases of the circulatory system
CPT/HCPCS: 36415; 71045; 80053; 82948; 83605; 83880; 84484; 85025; 87040; 87081; 87804; 90935; 93005; 94640; 96365; 96366; 99285; J0456; J1644; J1815; J3475; J7030; J7060; J7512; J7613; J7644

== ENCOUNTER 2019-11-23 21:49 | Emergency (ER) | payer OTHER ==
[~2019-11-23] VITALS: Ht 157.5 cm; Wt 68.0 kg
[~2019-11-23 21:49] MED LIST changes: +ATOR10TA PO; +FURO-570 PO; +HYDR100T79 PO; +INSU100I7 SQ; +INSU100V3 SQ; +TIOT4MIS2 IH
[2019-11-23 22:45] VITALS: BP 151/90
--- NOTE | 2019-11-23 22:48 | NUR ---
TO LOBBY A/W BED AMBULATORY
--- NOTE | 2019-11-23 23:10 | NUR ---
PT BROUGHT TO BED 9 VIA WHEELCHAIR WITH SPOUSE
--- NOTE | 2019-11-23 23:45 | NUR ---
ASSESSMENT COMPLETE AT THIS TIME. PATIENT LAYING IN BED. BIB SELF REPORTS BEING DC FORM THIS HOSPITAL ON THURSDAY AFTERNOON. STATES THAT SHE WAS FEELING GOOD BUT THEN VISITED WITH HER DAUGHTER WHO WAS [place] THAT NIGHT STARTED TO HAVE BODY ACHES, MOIST AND PRODUCTIVE COUGH WITH BODYACHES. DENIES NVD, SOB, OR CHESTPAIN.
--- NOTE | 2019-11-24 00:29 | NUR ---
PT HYPERTENSIVE WITH BP AT 190/96 AND HR 92. PT HAS C/O HEADACHE 05/18. PT DENIES VISION CHANGES. PT REPORTS MISSSING DIALYSIS ON THURSDAY DUE TO NOT HAVING TRANSPORTATION. ERMD MADE AWARE.
[2019-11-24] MEDS ORDERED: NACL 0.9% 1,000 ML IV ONE (01:11)
[2019-11-24] MEDS ORDERED: MORPHINE SULFATE 4 MG/ML SYR IVP ONE (01:15)
[2019-11-24] MEDS ORDERED: ONDANSETRON 4 MG/2 ML VIAL IVP ONE (01:15)
--- NOTE | 2019-11-24 01:15 | NUR ---
BLOOD DRAWN AND GIVEN TO LAB.
--- NOTE | 2019-11-24 01:36 | NUR ---
EKG PERFORMED AT BEDSIDE
[2019-11-24 01:45] LABS: BASOPHILS % (AUTO) 0.5 % (0.0-2.0); EOSINOPHILS % (AUTO) 0.2 % (0.0-4.0); HEMATOCRIT 44.4 % (36-48); HEMOGLOBIN 14.4 g/dL (12.0-16.0); LYMPHOCYTES # (AUTO) 0.9 K/uL (2.5-16.5); LYMPHOCYTES % (AUTO) 14.5 % (20.5-51.1); MEAN CORPUSCULAR HEMOGLOBIN 26 pg (27-31); MEAN CORPUSCULAR HGB CONC 32 g/dL (33-37); MEAN CORPUSCULAR VOLUME 81.1 fL (80-94); MONOCYTES # (AUTO) 0.3 K/uL (0.8-1.0); MONOCYTES % (AUTO) 4.7 % (1.7-9.3); NEUTROPHILS # (AUTO) 4.8 K/uL (1.8-7.7); NEUTROPHILS % (AUTO) 80.1 % (42.2-75.2); PLATELET COUNT (AUTO) 261 K/uL (140-450); RED BLOOD CELL COUNT(AUTO) 5.48 MIL/uL (4.20-5.40); RED CELL DISTRIBUTION WIDTH 16.8 % (11.6-13.7)
--- NOTE | 2019-11-24 02:00 | NUR ---
PT BP DECRESED 147/82. PT REPORTS DECREASED IN HEADACHE. WILL CONTINUE TO MONITOR.
[2019-11-24 02:01] LABS: ALBUMIN 1.7 g/dL (3.4-5.0); CARBON DIOXIDE 19.9 mmol/L (21-32); TOTAL BILIRUBIN 0.3 mg/dL (0.0-1.0)
[2019-11-24 02:08] LABS: ANION GAP 15.3 (8-16); CREATININE 4.1 mg/dL (0.6-1.3); POTASSIUM 4.2 mmol/L (3.5-5.1)
[2019-11-24 02:54] LABS: APPEARANCE,URINE SL CLOUDY (CLEAR); BILIRUBIN,URINE NEGATIVE (NEGATIVE); BLOOD, URINE 2+ (NEGATIVE); COLOR,URINE YELLOW (YELLOW); LEUKOCYTE ESTERASE ,URINE NEGATIVE (NEGATIVE); NITRITE, URINE NEGATIVE (NEGATIVE); PH,URINE 6.5 (5.0-9.0); UGLUCOSE 3+ (NEGATIVE)
[2019-11-24 03:12] LABS: HYALINE CASTS, URINE 0-10 /LPF (None Seen); RBC,URINE 20-50 /HPF (0-5)
--- NOTE | 2019-11-24 04:45 | NUR ---
PT SEEN WITH EYES CLOSED. VISIBLE CHEST RISE AND FALL NOTED. WILL CONTINUE TO MONITOR.
[2019-11-24 05:00] VITALS: BP 105/70
--- NOTE | 2019-11-24 05:55 | NUR ---
Patient discharged with v/s stable. Written and verbal after care instructions given and explained. Patient alert, oriented and verbalized understanding of instructions. Ambulatory with steady gait. All questions addressed prior to discharge. ID band removed. Patient advised to follow up with PMD. Rx of REGLAN given. Patient educated on indication of medication including possible reaction and side effects. Opportunity to ask questions provided and answered.
== END 2019-11-24 05:55 | disposition home or self-care (01) ==
LOC: MED 21:49
DX: R11.2 Nausea with vomiting, unspecified (principal); I10 Essential (primary) hypertension; E11.9 Type 2 diabetes mellitus without complications; J44.9 Chronic obstructive pulmonary disease, unspecified; Z87.448 Personal history of other diseases of urinary system; Z86.79 Personal history of other diseases of the circulatory system; Z79.899 Other long term (current) drug therapy; Z79.4 Long term (current) use of insulin; Z90.49 Acquired absence of other specified parts of digestive tract
CPT/HCPCS: 36415; 80053; 81001; 83690; 85025; 87086; 87804; 93005; 96361; 96374; 96375; 99284; J2270; J2405; J7030

== ENCOUNTER 2020-05-04 03:00 | Emergency (ER) | payer OTHER ==
[~2020-05-04] VITALS: Ht 165.1 cm; Wt 79.4 kg
[~2020-05-04 03:00] MED LIST changes: +EPINEPHrine PFS 0.1 MG/ML SYR IVP ONE; +SODIUM BICARBONATE 8.4% PFS 50 MEQ/50 ML SYR IVP ONE
--- NOTE | 2020-05-04 03:00 | NUR ---
2:55 AM PT BIB [facility] ON FULL ARREST. NO PULSE, NO BREATHING, NO B/P AND ASYSTOLE ON THE CAVING GUIDE. 2 EPI WERE GIVEN ON ROUTE. IO ESTABLISH BY PARAMEDICS ON PT RT LOWER TIBIA. PT DIRECT TO BED 1 WITH THE HOSPITAL STAFF, INCLUDING RESP THERAPIST AND STEVE JACQUES. CPR ON GOING WITH THE ACLS PROTOCOL . PT CARE TO DOMINICK GARCIA. SEE CODE SHEET.
[2020-05-04 03:09] VITALS: BP 0/0
--- NOTE | 2020-05-04 03:16 | NUR ---
CALLED [facility] AT [phone], SPOKE TO SHERITA. PT IFORMATION PROVIDED, PT IS NOT A CANDIDATE FOR [facility]. WAS OK'ED TO CALL JOB COUNSELOR FOR PT.
--- NOTE | 2020-05-04 03:16 | NUR ---
REFERENCE NUMBER FOR [facility] [phone]
--- NOTE | 2020-05-04 03:20 | NUR ---
CALLED PROTOZOOLOGY TEACHER AT [phone], SPOKE TO CARMEN BEYER. PROTOZOOLOGY TEACHER WILL BE RETURNIG CALL.
--- NOTE | 2020-05-04 03:30 | NUR ---
CALLED PT'S EMERGENCY CONTACT, PT'S DAUGHTER, RISA, AT [phone] TO ADVISED TO COME TO ER SO ER MD CAN UPDATE REGARDING PT'S STATUS.
--- NOTE | 2020-05-04 03:35 | NUR ---
PT WAS BIB [facility] IN FULL CARDIAC ARREST. PT WAS FOUND DOWN AND UNRESPONSIVE AT HOME. UPON ARRIVAL AND ASSESSMENT BY PARAMEDICS PT WAS ASYSTOLE. WHEN PT ARRIVED TO ER @ 0255, SHE WAS PLACED ON MONITOR. PT WAS PULSELESS, NOT BREATHING, WITHOUT A B/P AND IN ASYSTOLE. NKA MED HX - DM, HTN, RENAL FAILURE
--- NOTE | 2020-05-04 03:35 | NUR ---
CPR AND MEDS CONTINUED (SEE CODE SHEET) WITH NO RESPONSE. TIME OF CALLED @ 0303.
--- NOTE | 2020-05-04 03:40 | NUR ---
PT'S FAMILY ARRIVED TO ER. ER MD DR. JACQUES AND DISHWASHER PREPARER CRYSTAL, TO SPEAK WITH FAMILY MEMBERS.
--- NOTE | 2020-05-04 04:36 | NUR ---
SPOKE WITH PT'S DAUGHTER RISA, PT DOES NOT HAVE A SPECIFIC CNC MILL OPERATOR, SHE IS SEEN AT [facility] FOR HER HEALTH CARE. FAMILY DOES NOT HAVE MORTUARY ARANGEMENTS PREMADE OR A SPECIFIC MORTUARY, LIST OF MORTURARIES PROVIDED TO DAUGHTER. WAS PROVIDED WITH PT'S ELDEST DAUGHTER'S RONEY - [employer] [phone]
--- NOTE | 2020-05-04 04:50 | NUR ---
CALLED EDUCATIONAL AIDE AGAIN FOR UPDATE ON CASE, STILL NO EDUCATIONAL AIDE AVAILABLE. THEY WILL RETURN CALL SOON SOMEONE IS AVAILABLE.
--- NOTE | 2020-05-04 05:53 | NUR ---
RECEIVED CALL BACK FROM HONG CASTORENA, HEALTH CENTER ASSOCIATE MEDICAL ONCOLOGIST, SHE IS CLEARING THE BODY FOR MORTUARY, M[place]UE, FAMILY, ETC. A REPORT STILL NEEDS TO BE MADE TO THE ACTUAL HEALTH CENTER ASSOCIATE BUT NO ONE WILL BE AVAILABLE UNTIL AFTER 7 AM.
--- NOTE | 2020-05-04 06:09 | NUR ---
CALLED CATHIE TO SPEAK WITH PRIMARY CARE TEAM . OFFICES OPEN AT 0800. LEFT MESSAGE FOR DOCTORS TO RETURN CALL AT [facility].
--- NOTE | 2020-05-04 07:07 | NUR ---
SPOKE TO FLASH DEVELOPER MARIELLA MENDENHALL. INFORMATION PROVIDED REQUESTED. BODY IS CLEAR FOR MORTUARY. CASE # [id number]
--- NOTE | 2020-05-04 07:31 | NUR ---
SPOKE TO DAUGHTER RISA COYLE [facility]. PER DAUGHTER PATIENT DOES NOT HAVE A PCP; PER DAUGHTER PT SEE'S MULTIPLE PHYSICIANS. INFORMATION ENDORSED TO RADHA GARCIA
--- NOTE | 2020-05-04 07:46 | NUR ---
PER DAUGHTER ROMAN REQUEST CALLED [facility], SPOKE TO MARY CARMEN AND STATED "WELL SEND SOMEBODY"
--- NOTE | 2020-05-04 07:47 | NUR ---
CONTACT INFO FOR [facility] [phone]
--- NOTE | 2020-05-04 08:28 | NUR ---
CALLED CATHIE TO SPEAK WITH PRIMARY CARE TEAM , INSTRUCTED BY TEAM TO FAX CERTIFICATE SO THAT IT CAN BE SIGNED FAX [phone] Addendum: 05/04/20 at 0831 by [facility] CALLED CATHIE TO SPEAK WITH PRIMARY CARE TEAM SPOKE WITH [place], STATED SHE WOULD SEE DIFFERENT PROVIDER BUT THE LAST PROVIDER SHE SAW WAS DR. RICARDO PARKER. WILL CALL PROPOSAL DIRECTOR TO HAVE CERTIFICATE FAXED TO [facility] PCP CARL.
--- NOTE | 2020-05-04 08:36 | NUR ---
SPOKE TO APPLICATION SUPPORT MARIELLA MENDENHALL. INFORMATION PROVIDED REQUESTED. BODY IS CLEAR FOR MORTUARY. CASE # [id number]
--- NOTE | 2020-05-04 08:37 | NUR ---
CALLED PLANTING MATERIAL CARRIER TO RELAY INFO TO HAVE DEATHCERTIFICATE SIGNED, NOTIFIED THAT MORTUARY CREATES CERT AND MORTUARY WILL FAX TO PCP TO HAVE CERT SIGNED.
--- NOTE | 2020-05-04 08:48 | NUR ---
CALLED [facility], SPOKE WITH DUKE TO NOTIFY OF PTS PCP DR. RICAROD PARKER THAT WILL BE SIGNING CERTIFICATE. GIVEN FAX # OF [facility] OFFICE. [phone]
[2020-05-04 09:35] VITALS: BP 0/0
--- NOTE | 2020-05-04 09:35 | NUR ---
CALLED PTS DAUGHTER RISA LEFT A VOICEMAIL NOTIFING HER OF MORTUARY PICKING UP BODY AND TRANSFER OF PT.
--- NOTE | 2020-05-04 09:35 | NUR ---
Patient discharged. MORTUARY Transport with to [facility]. DAUGHTER CALLED AND LEFT VOICEMAIL N REGARDS TO PTS TRANSFER.
== END 2020-05-04 03:03 | disposition expired ==
LOC: MED 03:00
DX: I46.9 Cardiac arrest, cause unspecified (principal); I11.0 Hypertensive heart disease with heart failure; E11.9 Type 2 diabetes mellitus without complications; J44.9 Chronic obstructive pulmonary disease, unspecified; Z87.448 Personal history of other diseases of urinary system
CPT/HCPCS: 92950; 99291; J0171